=== PATIENT | female | born 1970 | race Caucasian/White ===

== ENCOUNTER 2020-01-26 15:42 | Outpatient (CLI) | payer OTHER, SELFPAY ==
--- NOTE | ~2020-01-26 | CT_ITS ---
EXAMINATION: CT chest abdomen pelvis w con DATE: 01/26/2020 16:23 CDT INDICATION: Pulmonary nodule. Abdomen pain. TECHNIQUE: Computed tomography (CT) of the chest, abdomen, and pelvis was performed with 100 cc Omnip aque 350 intravenous contrast. The dose-length product was 328.08 mGy-cm. Automated exposure control and iterative reconstruction technique were employed. COMPARISON: CT dated 03/10/2018 FINDINGS: CHEST CT: There is emphysema. No endobronchial lesions. No focal airspace consolidation. No pneumothorax. There is a 3 mm right lower lobe nodule, image 62 thyroid gland is unremarkable. No thoracic lymphadenopat hy. Heart size is normal. ABDOMEN/PELVIS CT: Fatty infiltration of the liver. Gallbladder is contracted. The spleen, pancreas, adrenal glands are unremarkable. There is bilateral renal cortical scarring. No hydronephrosis. No abnormally enhancing masses. Nonobstructive bowel gas pattern. Normal appendix. Uterus is surgically absent. No free air o r free fluid. No osteolytic or osteoblastic lesions. IMPRESSION: 1. No acute abnormality of the chest, abdomen or pelvis. 2: 3 mm right lower lobe nodule, likely benign. Follow-up low dose CT chest in 12 months recommended . 3: Emphysema. 4: Hepatic steatosis. Reviewed, dictated and finalized at location A. IMPRESSION: 1. No acute abnormality of the chest, abdomen or pelvis. 2: 3 mm right lower lobe nodule, likely benign. Follow-up low dose CT chest in 12 months recommended. 3: Emphysema. 4: Hepatic steatosis.
[2020-01-26 16:05] LABS: Estimated Glomerular Filt Rate > 60
== END 2020-01-26 15:43 | disposition home or self-care (01) ==
LOC: ANHIMG 15:43
PROVIDERS: PCP Family Medicine; Visit Provider Nurse Practitioner Family
DX: R91.1 Solitary pulmonary nodule (principal); R10.9 Unspecified abdominal pain; N20.0 Calculus of kidney; J43.9 Emphysema, unspecified; K76.0 Fatty (change of) liver, not elsewhere classified
CPT/HCPCS: 36415; 71260; 74177; Q9967

== ENCOUNTER 2020-02-10 10:10 | Outpatient (CLI) | payer OTHER, SELFPAY ==
--- NOTE | ~2020-02-10 | US_ITS ---
US abdomen complete DATE: 02/10/2020 10:56 INDICATION: Gallbladder obstruction TECHNIQUE: Real-time imaging of the abdomen, Doppler analysis COMPARISON: 01/26/2020 CT chest abdomen pelvis FINDINGS: No hepatic space-occupying mass lesion is detected. Hepatic steatosis. Normal hepatopedal p ortal venous flow direction. No gallstones or gallbladder wall thickening or abnormal pericholecystic fluid collection. Negative s onographic Tay's sign. The common bile duct measures 4 mm, normal. Right kidney measures approximately 11.1 cm length, left kidney 9.0 cm. Bilateral renal scarring. No hydronephrosis of either kidney. Small left renal calculus. Normal caliber of the abdominal aorta. The inferior vena cava is unremarkable. IMPRESSION: Hepatic steatosis Bilateral renal scarring Mild bilateral nephrolithiasis demonstrated to better advantage on 01/26/2020 [facility] Reviewed, dictated and finalized at Location [facility]. Reviewed, dictated and finalized at location A. IMPRESSION: Hepatic steatosis Bilateral renal scarring Mild bilateral nephrolithiasis demonstrated to better advantage on 01/26/2020 CT abdomen pelvis examination
== END 2020-02-10 10:11 | disposition home or self-care (01) ==
LOC: ANHIMG 10:11
PROVIDERS: PCP Family Medicine; Visit Provider Nurse Practitioner Family
DX: K82.0 Obstruction of gallbladder (principal); E55.9 Vitamin D deficiency, unspecified; K76.0 Fatty (change of) liver, not elsewhere classified; N20.0 Calculus of kidney
CPT/HCPCS: 76700

== ENCOUNTER 2021-03-11 08:49 | Emergency (ER) | payer BC, SELFPAY ==
[2021-03-11 08:57] VITALS: BP 143/95; PULSE 118; RESP 20; TEMP 36.4; O2SAT 100
[2021-03-11 09:35] LABS: Basophils Percent Auto 0.4 % (0.2-1.2); Eosinophils Percent Auto 0.1 % (0-4.4); Hematocrit 44.2 % (37.0-47.0); Hemoglobin 15.4 g/dL (12.0-15.0); Immature Granulocyte Absolute 0.06 K/mm3 (0.00-0.031); Immature Granulocyte Percent A 0.5 % (0-0.5); Lymphocytes Absolute Auto 1.28 K/mm3 (0.9-3.2); Lymphocytes Percent Auto 11.7 % (18.3-44.2); Mean Corpuscular HGB Conc 34.8 g/dl (32-36); Mean Corpuscular Hemoglobin 36.7 pg (26-34); Mean Corpuscular Volume 105.2 fl (80-100); Monocytes Absolute Auto 0.5 K/mm3 (0.1-0.6); Monocytes Percent Auto 4.7 % (2.6-8.5); Neutrophils Absolute Auto 9.1 K/mm3 (1.3-6.7); Neutrophils Percent Auto 82.6 % (45.5-73.1); Platelet Count Result 148 k/mm3 (150-375); Red Cell Distribution Width 11.9 % (11.5-14.5)
[2021-03-11 09:39] LABS: Add Urine Microscopic? YES; Appearance Urine Clear (Clear); Bilirubin Urine Negative (Negative); Blood Urine Negative (Negative); Color Urine Yellow (Yellow); Glucose Urine UA 3+ mg/dL (Negative); Ketones Urine Trace mg/dL (Negative); Leukocyte Esterase Ur Negative LEU/UL (Negative); Mucus Urine Rare /lpf; Nitrate Urine Negative (Negative); Protein Urine 2+ mg/dL (Negative); RBC Urine 0-2 /hpf (0-2); Squamous Epithelial Cell Urine Few /hpf (Few); WBC Urine 0-3 /hpf
[2021-03-11 09:45] LABS: Specific Grav Ur 1.031 (1.001-1.035)
[2021-03-11 09:47] LABS: Alanine Aminotransferase 31 U/L (4-35); Albumin Level 4.8 g/dL (3.5-5.1); Alkaline Phosphatase 175 U/L (38-126); Anion Gap 12 mmol/L (8-16); Aspartate Amino Transferase 52 U/L (14-36); Blood Urea Nitrogen 6 mg/dL (7-17); Calcium 9.9 mg/dL (8.4-10.2); Carbon Dioxide 31 mmol/L (22-30); Chloride 90 mmol/L (98-107); Estimated CRCL calculation 70 ml/min; Estimated Glomerular Filt Rate > 60; Glucose 413 mg/dL (65-110); Lipase 50 U/L (23-300); Potassium 4.4 mmol/L (3.4-5.0); Sodium 133 mmol/L (137-145)
[2021-03-11] MEDS: SODIUM CHLORIDE 0.9% IV 1,000 ML 999 ML IV CONT ×2 (10:39→11:11)
[2021-03-11] MEDS: ONDANSETRON INJ 4 MG/2 ML VIAL IV PUSH (10:39)
[2021-03-11] MEDS: INSULIN HUMAN REGULAR (*BKC) 100 UNITS/ML 10 UNITS IV PUSH (10:39)
[2021-03-11 10:46] LABS: Alveolar/Arterial O2 Gradient 13.6 mmHg; Base Excess ABG 5.3 mEq/l (+/-2.0); Fractional Inspired Oxygen 21 %; HCO3 ABG 26.7 mEq/l (22.0-26.0); Oxygen Content ABG 20.9 %vol (16.0-22.0); Oxygen Saturation ABG 98.3 % (95.0-100.0); Oxyhemoglobin 96.1 % THb (90.0-100.0); PCO2 ABG 30.3 mmHg (35.0-45.0); PO2 ABG 99.8 mmHg (80.0-100.0); PO2 FiO2 Ratio Arterial Blood 4.75 %; Total Hemoglobin 15.4 g/dL (12.0-18.0)
[2021-03-11 10:47] LABS: Device ROOM AIR; Modified Allen's Test Pass; Site Drawn LEFT RADIAL; pH ABG 7.563 (7.350-7.450)
--- NOTE | 2021-03-11 12:01 | ED.GENADULT ---
HPI - General Adult General Chief complaint: Nausea/Vomiting/Diarrhea Stated complaint: N/V Time Seen by Provider: 03/11/21 10:15 Source: patient Mode of arrival: ambulatory Limitations: no limitations History of Present Illness HPI narrative: Patient with history of diabetes mellitus and gastritis presents with chief complaint of multiple episodes of nausea vomiting and generalized abdominal pain over the past 2 to 3 days. Patient states she gets gastritis and is out of her Zofran. Patient states that she has not been taking her insulin over the past 3 months as she has had a job and insurance change. Patient reports that her abdominal pain is all over and not localized only area. Patient denies issues with urination or stools. Patient denies fever or chills. Patient states that she has been feeling weak and dizzy today. Related Data Allergies Allergy/AdvReac Type Severity Reaction Status Date / Time No Known Allergies Allergy Unknown Verified 03/11/21 09:12 Review of Systems Review of Systems: CONSTITUTIONAL: Reports fatigue denies fever, chills, or sweats. EYES: Denies visual changes, redness, or discharge. ENT: Denies rhinorrhea, congestion, sore throat, or otalgia. CARDIOVASCULAR: Denies chest pain, palpitations, or edema. RESPIRATORY: Denies cough or dyspnea. GASTROINTESTINAL: Reports abdominal pain, nausea, vomiting denies diarrhea. GENITOURINARY: Denies dysuria or hematuria. SKIN: Denies rash or itching. MUSCULOSKELETAL: Denies back pain, joint pain, or myalgia. NEUROLOGIC: Denies headache, numbness, or neurologic deficit PSYCHIATRIC: Denies anxiety or depression. [facility] Past Medical History Medical History (Updated 03/11/21 @ 13:58 by Cesar Bean PA-C) Alcohol abuse Anxiety disorder, unspecified Back pain BMI 23.0-23.9, adult BMI 25.0-25.9,adult Depression Diabetes Emphysema lung Fatigue Fatty liver GERD (gastroesophageal reflux disease) Hyperlipidemia Irritable bowel syndrome with constipation Liver disease Neuropathy Tachycardia Tobacco abuse Uncontrolled diabetes mellitus Vitamin D deficiency Surgical History Surgical History H/O: hysterectomy Previous section Family History Family History (Updated 09/13/20 @ 09:09 by Mariam Menard) Father Hypertension Family history of throat cancer Family history of heart disease in male family member before age 55 Mother Cerebrovascular accident Grandparent Carcinoma of colon Other ADD (attention deficit disorder) Alcoholism Asthma COPD (chronic obstructive pulmonary disease) Cancer Glaucoma Heart disease Lung disease Osteoporosis Social History Social History (Updated 09/12/20 @ 13:52 by Maru Carnes) Smoking status: Current every day smoker Second hand tobacco smoke exposure: No Alcohol intake: current Alcohol use details: 3 drinks of vodka a day after work. Substance use: never Additional living arrangements comments: -[place] Additional occupation/education comments: [employer] Gender identity (if verbalized by the patient): Female Sexual Orientation (if Verbalized by the Patient): Straight or Heterosexual Spiritual care concerns: No Exam Narrative: GENERAL: Well-appearing, well-nourished, and in no acute distress. HEAD: Normocephalic, atraumatic. EYES: PERRLA and EOMI. ENT: Nares clear, no rhinorrhea or epistaxis. Mucous membranes mildly dry. Oropharynx without tonsillar hypertrophy exudate or other lesions. Bilateral TMs pearly fan nonbulging NECK: Supple. No adenopathy or masses. CHEST: Clear to auscultation. No respiratory distress. No wheezes rales or rhonchi HEART: Tachycardic rate and regular rhythm. No murmur heard. Normal peripheral pulses. ABDOMEN: Soft, mildly tender diffusely, nondistended, normal active bowel sounds. EXTREMITIES: Normal range of motion. No edema. SKIN: Warm, dry, no ra
[2021-03-11] MEDS: BELLADONNA ALK/PHENOB ELIX 10 ML, MAG HYDROX/ALUMINUM HYD/SIMETH 30 ML, LIDOCAINE HCL 2... PO (12:09)
[2021-03-11 13:06] LABS: Glucose Point of Care 171 mg/dl (65-105)
[2021-03-11 14:15] VITALS: BP 116/77; PULSE 87; RESP 16; O2SAT 99
== END 2021-03-11 14:15 | disposition home or self-care (01) ==
PROVIDERS: Physician Assistant; Emergency Provider Emergency Medicine; PCP Family Medicine
DX: E11.65 Type 2 diabetes mellitus with hyperglycemia (principal); E11.40 Type 2 diabetes mellitus with diabetic neuropathy, unspecified; F41.9 Anxiety disorder, unspecified; F32.9 Major depressive disorder, single episode, unspecified; E78.5 Hyperlipidemia, unspecified; F17.210 Nicotine dependence, cigarettes, uncomplicated; Z87.19 Personal history of other diseases of the digestive system; Z90.710 Acquired absence of both cervix and uterus
CPT/HCPCS: 36415; 36600; 80053; 81001; 82805; 82948; 83690; 85025; 96361; 96374; 96375; 99284; A9270; J1815; J2405; J7030

== ENCOUNTER 2021-07-11 09:42 | Emergency (ER) | payer BC, SELFPAY ==
--- NOTE | ~2021-07-11 | XR_ITS ---
EXAMINATION: XR chest 1V portable EXAM DATE: 07/11/2021 10:14 INDICATION: COVID positive, chest pain, cough. TECHNIQUE: Portable AP frontal chest x-ray was obtained. Comparison is made to prior examination from 06/24/2017. FINDINGS: The lungs are clear. There are no pleural effusions. The cardiomediastinal silhouette is within normal limits. There is no pneumothorax suspected. The bones and soft tissues are unremarkab le. IMPRESSION: No acute cardiopulmonary findings. Reviewed, dictated and finalized at location A. UET HOUSEPERSON
--- NOTE | 2021-07-11 09:49 | ECG_ITS ---
Measurements Intervals [place] Rate: 117 P: 44 OR: 112 QRS: 16 QRSD: 81 T: 30 QT: 302 QTc: 422 Interpretive Statements SINUS TACHYCARDIA WITH SHORT OR INTERVAL BASELINE ARTIFACT- I, II, III, AVR, AVL, AVF ABNORMAL ECG Electronically Signed On 07-11-2021 9:57:09 JOURNAL ENTRY AUDIT CLERK by Enrique De La Torre D.O.
[2021-07-11 09:50] VITALS: BP 180/106; PULSE 115; RESP 27; TEMP 37.1; O2SAT 97
--- NOTE | 2021-07-11 10:04 | ED.CHESTPAIN ---
HPI - Chest Pain General Chief Complaint: Chest Pain Stated Complaint: tested positive for covid Time Seen by Provider: 07/11/21 09:55 Source: patient Mode of arrival: ambulatory Limitations: no limitations History of Present Illness HPI narrative: Patient is a 50-year-old female complaining of chest pain, left chest wall, left lateral ribs, 9 out of 10, sharp, worse with deep inspiration and movement accompanied by cough, productive, and shortness of breath started 3 to 4 days ago. Patient states that she fell this past Friday and she hit her left side where the pain is. Patient also complaining of cough, shortness of breath, fever, chills and body aches since Friday, took a COVID test yesterday and tested positive. Related Data Allergies Allergy/AdvReac Type Severity Reaction Status Date / Time No Known Allergies Allergy Unknown Verified 07/11/21 10:57 Review of Systems Review of Systems: All systems reviewed & are unremarkable except as noted in HPI and below Constitutional: Constitutional: Denies body ache(s), Denies chills, Denies excessive sweating, Denies fatigue, Denies fever(s), Denies headache(s), Denies lethargy, Denies malaise, Denies weakness and Denies weight loss Eyes: Eyes: Denies blurry vision, Denies change in vision and Denies loss of vision ENT: Denies dizziness, Denies ear discharge, Denies headache(s), Denies lip swelling, Denies epistaxis, Denies nasal congestion, Denies neck pain, Denies throat swelling and Denies tongue swelling Cardiovascular: Cardiovascular: Reports chest pain, Denies diaphoresis, Denies edema, Denies irregular heart rhythm, Denies lightheadedness, Denies palpitations, Denies dyspnea and Denies dyspnea on exertion Respiratory: Respiratory: Reports chest congestion, Reports cough, Denies hemoptysis, Reports dyspnea and Denies dyspnea on exertion Gastrointestinal: Gastrointestinal: Denies abdominal pain, Denies melena, Denies hematochezia, Denies diarrhea, Denies nausea, Denies vomiting and Denies hematemesis Musculoskeletal: Musculoskeletal: Denies abnormal gait, Denies deformity, Denies joint swelling, Denies limited range of motion, Denies neck pain and Denies numbness Neurologic: Denies Abnormal speech present, Denies abnormal gait, Denies confusion, Denies dizziness, Denies headache(s), Denies focal weakness, Denies loss of vision, Denies numbness, Denies Other visual disturbances, Denies Sensory deficit (Neuro) and Denies weakness Psychiatric: Psychiatric: Denies confusion, Denies depression, Denies auditory hallucinations, Denies homicidal ideation and Denies suicidal ideation Endocrine: Endocrine: Denies cold intolerance, Denies excessive sweating, Denies fatigue, Denies heat intolerance and Denies palpitations Hematologic/Lymphatic: Hematologic/Lymphatic: Denies easy bleeding and Denies easy bruising Allergic/Immunologic: Allergic/Immunologic: Denies lip swelling, Denies throat swelling and Denies tongue swelling PMFSH Past Medical History Medical History Alcohol abuse Anxiety disorder, unspecified Back pain BMI 23.0-23.9, adult BMI 25.0-25.9,adult Depression Diabetes Emphysema lung Fatigue Fatty liver GERD (gastroesophageal reflux disease) Hyperlipidemia Irritable bowel syndrome with constipation Liver disease Neuropathy Tachycardia Tobacco abuse Uncontrolled diabetes mellitus Vitamin D deficiency Surgical History Surgical History H/O: hysterectomy Previous section Family History Family History Father Hypertension Family history of throat cancer Family history of heart disease in male family member before age 55 Mother Cerebrovascular accident Grandparent Carcinoma of colon Other ADD (attention deficit disorder) Alcoholism Asthma COPD (chronic obstructive pulmonary disease) Ca
[2021-07-11] MEDS: ASPIRIN 81 MG CHEWABLE TABLET 324 MG PO (10:12)
[2021-07-11 10:15] LABS: Basophils Percent Auto 0.5 % (0.2-1.2); Eosinophils Percent Auto 0.4 % (0-4.4); Hematocrit 42.5 % (37.0-47.0); Hemoglobin 14.6 g/dL (12.0-15.0); Immature Granulocyte Absolute 0.04 K/mm3 (0.00-0.031); Immature Granulocyte Percent A 0.5 % (0-0.5); Immature Platelet Fraction Pct 9.4 % (0.9-11.2); Lymphocytes Absolute Auto 1.69 K/mm3 (0.9-3.2); Lymphocytes Percent Auto 20.8 % (18.3-44.2); Mean Corpuscular HGB Conc 34.4 g/dl (32-36); Mean Corpuscular Hemoglobin 35.5 pg (26-34); Mean Corpuscular Volume 103.4 fl (80-100); Mean Platelet Volume 11.1 fl (7.4-10.4); Monocytes Absolute Auto 0.6 K/mm3 (0.1-0.6); Monocytes Percent Auto 7.3 % (2.6-8.5); Neutrophils Absolute Auto 5.7 K/mm3 (1.3-6.7); Neutrophils Percent Auto 70.5 % (45.5-73.1); Platelet Count Result 101 k/mm3 (150-375); Red Blood Count 4.11 M/mm3 (4.2-5.4); Red Cell Distribution Width 11.5 % (11.5-14.5); White Blood Count 8.1 K/mm3 (4.5-10.0)
[2021-07-11 10:22] LABS: Prothrombin Time 13.4 Seconds (11.1-14.7)
[2021-07-11 10:23] LABS: Partial Thromboplastin Time 27.5 SECONDS (22.3-36.8)
[2021-07-11 10:25] LABS: D Dimer 0.34 ug/mL (<0.48)
[2021-07-11 10:26] LABS: Alanine Aminotransferase 86 U/L (4-35); Albumin Level 4.3 g/dL (3.5-5.1); Alkaline Phosphatase 170 U/L (38-126); Anion Gap 11 mmol/L (8-16); Aspartate Amino Transferase 150 U/L (14-36); Bilirubin,Total 2.3 mg/dL (0.2-1.3); Blood Urea Nitrogen 7 mg/dL (7-17); Calcium 9.1 mg/dL (8.4-10.2); Carbon Dioxide 31 mmol/L (22-30); Chloride 86 mmol/L (98-107); Estimated CRCL calculation 69 ml/min; Estimated Glomerular Filt Rate > 60; Glucose 326 mg/dL (65-110); Lipase 51 U/L (23-300); Potassium 4.4 mmol/L (3.4-5.0); Sodium 128 mmol/L (137-145)
[2021-07-11 10:36] LABS: Troponin I 0.013 ng/mL (0.000-0.034)
[2021-07-11] MEDS: HYDROcodone/acetaminophen (*CRX) 5-325 MG TABLET 1 TAB PO (10:54)
[2021-07-11 10:56] VITALS: BP 139/91; PULSE 111; RESP 12; O2SAT 96
[2021-07-11 11:25] VITALS: BP 137/91; PULSE 109; RESP 18; O2SAT 98
[2021-07-11 12:25] VITALS: BP 128/90; PULSE 100; RESP 16; O2SAT 95
[2021-07-11] MEDS: LACTATED RINGERS 1,000 ML 999 ML IV CONT (13:00)
[2021-07-11 13:20] VITALS: BP 156/88; PULSE 94; RESP 18; O2SAT 97
[2021-07-11 13:22] LABS: Troponin I < 0.012 ng/mL (0.000-0.034)
[2021-07-11 14:19] VITALS: BP 110/97; PULSE 98; RESP 18; TEMP 36.8; O2SAT 98
== END 2021-07-11 14:20 | disposition home or self-care (01) ==
PROVIDERS: Emergency Provider Emergency Medicine; PCP Family Medicine
DX: R07.89 Other chest pain (principal); R00.0 Tachycardia, unspecified; F41.9 Anxiety disorder, unspecified; F32.9 Major depressive disorder, single episode, unspecified; E11.9 Type 2 diabetes mellitus without complications; K21.9 Gastro-esophageal reflux disease without esophagitis; E78.5 Hyperlipidemia, unspecified
CPT/HCPCS: 36415; 71045; 80053; 83690; 84484; 85025; 85055; 85380; 85610; 85730; 93005; 96361; 96374; 99284; A9270; J1100; J7120

== ENCOUNTER 2021-09-25 14:38 | Outpatient (CLI) | payer BC, SELFPAY ==
--- NOTE | ~2021-09-25 | US_ITS ---
EXAMINATION: US venous doppler LE RT DATE: 09/25/2021 15:01 INDICATION: Right lower limb pain and swelling. Other specified soft tissue disorders. TECHNIQUE: Grayscale ultrasound images without and with compression and Doppler ultrasound images of the right lower extremity veins were obtained. COMPARISON: None. FINDINGS: The visualized portions of right common femoral vein, profunda (deep) femoral vein, femoral vein, pop liteal vein, peroneal veins, posterior tibial veins, and greater saphenous vein outflow are patent. IMPRESSION: 1. No deep venous thrombosis. Reviewed, dictated and finalized at location A.
== END 2021-09-25 14:39 | disposition home or self-care (01) ==
LOC: ANHIMG 14:39
PROVIDERS: PCP Family Medicine; Visit Provider Family Medicine
DX: M79.89 Other specified soft tissue disorders (principal)
CPT/HCPCS: 93971

== ENCOUNTER 2022-05-05 07:12 | Observation (INO) | payer BC, SELFPAY ==
[2022-05-05] VITALS (11 sets, daily range): BP systolic 103–124; BP diastolic 68–86; PULSE 90–140; RESP 18–20; TEMP 36.3–36.8; O2SAT 96–100
--- NOTE | ~2022-05-05 | CT_ITS ---
EXAMINATION: CT abdomen pelvis w con DATE: 05/05/2022 10:20 INDICATION: Epigastric abdominal pain, vomiting TECHNIQUE: Computed tomography (CT) of the abdomen and pelvis was performed with 100 CC Omnipaque 350 intravenous contrast. Automated exposure control and iterative reconstruction technique were employe d. Exam dose: 191.15 mGy-cm total exam DLP. COMPARISON: 02/10/2020 complete abdominal ultrasound examination 01/26/2020 CT chest abdomen pelvis FINDINGS: The lung bases are clear. Normal heart size. No pericardial or pleural effusion. Hepatic steatosis. No hepatic space-occupying mass lesion. The gallbladder is unremarkable. No perich olecystic fluid or fat stranding or gallbladder wall thickening. No bile duct or pancreatic duct dila tation. No pancreatic mass lesion or calcification. Spleen measures vertical dimension of 4.2 cm, wit hin upper normal range. Normal morphology of the adrenal glands. Bilateral renal scarring consistent with chronic pyelonephri tis. There are a couple of nonobstructing right renal calculi measuring up to approximately 3 mm and an approximately 3 x 5 mm nonobstructing left renal calculus. No ureteral calculus or hydroureteronep hrosis. There is moderate diffuse thickening of the urinary bladder wall. Status post hysterectomy. There is abdominal aortic and iliac arterial calcification but no aneurysm. There are shotty nonenlar ged periaortic and aortocaval lymph nodes. No intraperitoneal or retroperitoneal or pelvic mass lesio n or adenopathy or ascites. Normal appendix. No bowel obstruction, bowel wall thickening, pneumatosis or intraperitoneal free air . Prominent degenerative spurring at the lower thoracic spine. No suspicious osteolytic or osteoblastic lesions. IMPRESSION: Bilateral chronic pyelonephritis Bilateral nonobstructive nephrolithiasis Hepatic steatosis Status post hysterectomy Reviewed, dictated and finalized at Location [facility]. Reviewed, dictated and finalized at location A. ITIES AND MAINTENANCE SUPERVISOR
--- NOTE | ~2022-05-05 | XR_ITS ---
EXAMINATION: XR chest 1V portable DATE: 05/05/2022 07:54 INDICATION: Cough and shortness of breath. TECHNIQUE: A single frontal view of the chest was obtained. COMPARISON: Chest single view 07/11/2021, CT abdomen and pelvis 05/05/2022 FINDINGS: The chest demonstrates clear lungs without pneumonia, pleural effusion, or pneumothorax. Th e heart size is normal. IMPRESSION: 1. No acute cardiopulmonary disease. Reviewed, dictated and finalized at location A. ENDOCRINOLOGY
--- NOTE | 2022-05-05 07:36 | ECG_ITS ---
Measurements Intervals [place] Rate: 105 P: -11 [place]: 91 QRS: 23 QRSD: 82 T: 192 QT: 405 QTc: 537 Interpretive Statements SINUS TACHYCARDIA WITH SHORT AR INTERVAL BORDERLINE R WAVE PROGRESSION, ANTERIOR LEADS ST-T WAVE ABNORMALITY IN DIFFUSE LEADS- CONSIDER ISCHEMIA BASELINE ARTIFACT- I, II, III, AVR, AVL, AVF ABNORMAL ECG COMPARED TO ECG 07/11/2021 09:52:22 HEART RATE HAS INCREASED ST-T WAVE ABNORMALITY IN DIFFUSE LEADS- CONSIDER ISCHEMIA NOW PRESENT Electronically Signed On 05-05-2022 9:53:27 COMMUNITY SERVICE PATROL OFFICER by Enrique De La Torre D.O.
[2022-05-05 07:43] LABS: Glucose Point of Care 287 mg/dl (65-105)
[2022-05-05 07:46] LABS: Basophils Percent Auto 0.2 % (0.2-1.2); Hematocrit 48.4 % (37.0-47.0); Hemoglobin 16.6 g/dL (12.0-15.0); Immature Granulocyte Absolute 0.09 K/mm3 (0.00-0.031); Immature Granulocyte Percent A 0.5 % (0-0.5); Lymphocytes Absolute Auto 1.79 K/mm3 (0.9-3.2); Lymphocytes Percent Auto 9.2 % (18.3-44.2); Mean Corpuscular HGB Conc 34.3 g/dl (32-36); Mean Corpuscular Hemoglobin 36.6 pg (26-34); Mean Corpuscular Volume 106.6 fl (80-100); Mean Platelet Volume 11.6 fl (7.4-10.4); Monocytes Absolute Auto 0.8 K/mm3 (0.1-0.6); Monocytes Percent Auto 4.3 % (2.6-8.5); Neutrophils Absolute Auto 16.7 K/mm3 (1.3-6.7); Neutrophils Percent Auto 85.8 % (45.5-73.1); Platelet Count Result 145 k/mm3 (150-375); Red Blood Count 4.54 M/mm3 (4.2-5.4); Red Cell Distribution Width 12.4 % (11.5-14.5); White Blood Count 19.4 K/mm3 (4.5-10.0)
[2022-05-05] MEDS: SODIUM CHLORIDE 0.9% IV 2,000 ML 999 ML IV CONT (07:48)
[2022-05-05 08:08] LABS: Albumin Level 4.2 g/dL (3.5-5.1); Alkaline Phosphatase 157 U/L (38-126); Anion Gap 19 mmol/L (8-16); Aspartate Amino Transferase 55 U/L (14-36); Bilirubin,Total 3.6 mg/dL (0.2-1.3); Blood Urea Nitrogen 9 mg/dL (7-17); Calcium 8.5 mg/dL (8.4-10.2); Carbon Dioxide 39 mmol/L (22-30); Chloride 81 mmol/L (98-107); Estimated CRCL calculation 53 ml/min; Estimated Glomerular Filt Rate > 60; Glucose 272 mg/dL (65-110); Lipase 47 U/L (23-300); Potassium 3.2 mmol/L (3.4-5.0); Sodium 139 mmol/L (137-145)
[2022-05-05 08:12] LABS: Platelet Estimate Adequate (Adequate); Stomatocytes 1+ (NORMAL)
[2022-05-05 08:13] LABS: Alanine Aminotransferase 46 U/L (6-35); Macrocytosis 1+ (NORMAL); Schistocytes None Seen (NORMAL)
--- NOTE | 2022-05-05 08:20 | ED.NAVMDI ---
HPI - Nausea/Vomiting/Diarrhea General Chief complaint: Nausea/Vomiting/Diarrhea Stated complaint: vomiting Time Seen by Provider: 05/05/22 08:20 Source: patient Mode of arrival: ambulatory Limitations: no limitations History of Present Illness HPI Narrative: Patient presents with nausea and vomiting at least once every hour over the last 48 hours. Unable to keep anything down. Epigastric pain. Slight nasal congestion and the cough. She denies any fever, chills, diarrhea. Related Data Allergies Allergy/AdvReac Type Severity Reaction Status Date / Time No Known Allergies Allergy Unknown Verified 05/05/22 07:38 Review of Systems Review of Systems: All systems reviewed & are unremarkable except as noted in HPI and below PMFSH Past Medical History Medical History Abnormal CBC Abnormal mammogram Abscess Alcohol abuse Alcoholic hepatitis without ascites Anxiety Anxiety disorder, unspecified Back pain Bloating BMI 20.0-20.9, adult BMI 23.0-23.9, adult BMI 25.0-25.9,adult Body mass index [BMI] 25.0-25.9, adult (07/03/17) Chronic abdominal pain Current mild episode of major depressive disorder without prior episode Depression Diabetes Diabetes mellitus type 2 in nonobese Dietary counseling and surveillance (04/01/17) Elevated liver enzymes Emphysema lung Essential hypertension Fatigue Fatty liver GERD (gastroesophageal reflux disease) History of Helicobacter pylori infection Hyperlipidemia Injury of other nerves at shoulder and upper arm level, right arm, initial encounter Irritable bowel syndrome with constipation Liver disease Lung nodules Nausea Neuropathy Other chronic pain Other hyperlipidemia Routine physical examination Screening for lipid disorders Screening for thyroid disorder Screening mammogram, encounter for Swelling of thigh Tachycardia Tobacco abuse Type 2 diabetes mellitus with hyperglycemia Uncontrolled diabetes mellitus Vitamin D deficiency Yeast infection involving the vagina and surrounding area Surgical History Surgical History H/O: hysterectomy Previous section Family History Family History Father Hypertension Family history of throat cancer Family history of heart disease in male family member before age 55 Mother Cerebrovascular accident Grandparent Carcinoma of colon Sibling No problems noted. Other ADD (attention deficit disorder) Alcoholism Asthma COPD (chronic obstructive pulmonary disease) Cancer Glaucoma Heart disease Lung disease Osteoporosis Social History Social History Years smoked: 8 Smoking status: Former smoker Tobacco type: e-cigarettes/vaping Second hand tobacco smoke exposure: No Alcohol intake: current Drinks per week: 6 Alcohol use details: 3 drinks of vodka a day after work. Substance use: never Substance use type: does not use Additional living arrangements comments: -[place] Additional occupation/education comments: [employer] Gender identity (if verbalized by the patient): Female Sexual Orientation (if Verbalized by the Patient): Straight or Heterosexual Spiritual care concerns: No Exam Narrative: General appearance: Well-developed, well-nourished Skin: Normal color Head: Normocephalic, nontraumatic Eyes: Clear conjunctiva ENT: Oropharynx normal, ears normal, nose normal Neck: Supple, nontender Chest and respiratory: Airway patent, no respiratory distress, no accessory muscle use Heart: Regular rate/rhythm Abdomen: Soft, epigastric tenderness, no organomegaly, quiet bowel sounds Vascular: Normal peripheral pulses, normal capillary refill. Musculoskeletal: Normal range of motion, nontender back Neurologic: Alert and oriented ?3, FORGE HEATER is normal as tested, no gross m
[2022-05-05 08:33] LABS: Influenza A QL RT-PCR Negative (Negative); Influenza B QL RT-PCR Negative (Negative); SARS-CoV-2 RNA PCR Negative
[2022-05-05] MEDS: diphenhydrAMINE HCl INJ 50 MG/ML VIAL IV PUSH (08:33)
[2022-05-05] MEDS: METOCLOPRAMIDE HCL INJ 10 MG/2 ML VIAL IV PUSH (08:33)
[2022-05-05 08:52] LABS: Appearance Urine Clear (Clear); Bilirubin Urine 3+ (Negative); Blood Urine Trace-intact (Negative); Color Urine Amber (Yellow); Glucose Urine UA Trace mg/dL (Negative); Ketones Urine 2+ mg/dL (Negative); Leukocyte Esterase Ur Negative LEU/UL (Negative); Nitrate Urine Positive (Negative); Protein Urine 3+ mg/dL (Negative); Specific Grav Ur 1.015 (1.001-1.035); pH Urine 8.5 (5.0-9.0)
[2022-05-05 08:58] LABS: Hyaline Casts Urine 20-29 /lpf; Mucus Urine Few /lpf; Squamous Epithelial Cell Urine Many /hpf (Few)
[2022-05-05 09:12] LABS: Add Urine Microscopic? YES
[2022-05-05] MEDS: SODIUM CHLORIDE 0.9% IV 1,000 ML 999 ML IV CONT (09:43)
--- NOTE | 2022-05-05 11:09 | PC.NURSE ---
1100 Assumed pt care from DEYA Garcia
--- NOTE | 2022-05-05 13:45 | PM.IMHP ---
H&P: HPI History of Present Illness Date/Time: 05/05/22 13:45 Chief Complaint: Nausea and vomiting. Narrative: This is a 51-year-old female with history of diabetes, fatty liver disease, GERD, H pylori infection, and emphysema who presented to the emergency department from for evaluation of nausea and vomiting. She has not felt well for 2 and half days with multiple symptoms including chills, low back ache, severe heartburn, nausea, and vomiting nearly every hour. She has also had mild sinus congestion and cough. Her family members encouraged her to come in today as she has gotten so weak due to poor oral intake and ongoing vomiting. 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 She denies fever, headache, sore throat, productive cough, chest pain, pleuritic pain, palpitations, hematemesis, melena, hematochezia, diarrhea, and dysuria. Workup in the emergency department was significant for leukocytosis and white blood cell count of 19.4, potassium of 3.2, glucose 272, and gap 19, total bilirubin 3.6, and mild elevation of AST, ALT, and alkaline phosphatase. Urine showed 3+ protein, trace glucose, 2+ ketones, positive nitrates, 3+ bilirubin, 79 WBCs, many squamous cells, and [address] of the abdomen and pelvis showed findings of bilateral chronic pyelonephritis, bilateral nonobstructive nephrolithiasis, and hepatic steatosis. She is being admitted in this setting for aggressive IV fluid rehydration and close monitoring of her glucose. At the time my evaluation she is feeling a bit better after receiving antiemetics and IV fluids. Review of Systems Review of Systems: Twelve systems were reviewed and are negative except for as per HPI. [facility] Past Medical History Medical History (Updated 05/05/22 @ 20:38 by Luz Elena Samaniego PA-C) Alcohol abuse Alcoholic hepatitis without ascites Anxiety Depression Diabetes mellitus type 2 in nonobese Emphysema lung Essential hypertension Fatty liver GERD (gastroesophageal reflux disease) History of Helicobacter pylori infection Hyperlipidemia Irritable bowel syndrome with constipation Lung nodules Neuropathy Other chronic pain Other hyperlipidemia Tachycardia Tobacco abuse Vitamin D deficiency Surgical History Surgical History H/O: hysterectomy Previous section Family History Family History Father Hypertension Family history of throat cancer Family history of heart disease in male family member before age 55 Mother Cerebrovascular accident Grandparent Carcinoma of colon Sibling No problems noted. Other ADD (attention deficit disorder) Alcoholism Asthma COPD (chronic obstructive pulmonary disease) Cancer Glaucoma Heart disease Lung disease Osteoporosis Social History Social History (Updated 05/05/22 @ 20:36 by Luz Elena Samaniego PA-C) Social History: Surrogate medical decision maker: [place] Valenzuela, spouse. Code status: Full code. Smoking packs per day: 1 Smoking cigarettes per day: 20.0 Years smoked: 8 Smoking pack-years: 8.00 Smoking status: Former smoker Tobacco type: cigarettes Second hand tobacco smoke exposure: No Alcohol intake: current Drinks per week: 3 Alcohol use details: 3 ounces of vodka several days a week after work. Drank heavier in the past. Substance use: never Substance use type: does not use Has the Lack of Transportation Kept You From Medical Appointments or From Getting Medications?: Yes Within the Past 12 Months, Were You Worried Whether Your Food Would Run Out Before You Got Money to Buy More?: Never True What is Your Housing Situation Today?: I Have Housing Are You Worried That in the Next 2 Months, You May Not Have Your Own Housing to Live In?: No Do You Have
[2022-05-05] MEDS: SODIUM CHLORIDE 0.9% IV 1,000 ML 150 ML IV CONT (16:42)
[2022-05-05 19:15] LABS: INR 1.5; Prothrombin Time 17.5 Seconds (11.1-14.7)
[2022-05-05 19:16] LABS: Partial Thromboplastin Time 28.4 SECONDS (22.3-36.8)
[2022-05-05 19:25] LABS: Alanine Aminotransferase 28 U/L (6-35); Albumin Level 3.2 g/dL (3.5-5.1); Alkaline Phosphatase 98 U/L (38-126); Anion Gap 11 mmol/L (8-16); Aspartate Amino Transferase 57 U/L (14-36); Bilirubin,Total 1.8 mg/dL (0.2-1.3); Blood Urea Nitrogen 7 mg/dL (7-17); Calcium 6.7 mg/dL (8.4-10.2); Carbon Dioxide 32 mmol/L (22-30); Chloride 95 mmol/L (98-107); Creatine Kinase 50 U/L (30-135); Estimated CRCL calculation 69 ml/min; Estimated Glomerular Filt Rate > 60; Glucose 159 mg/dL (65-110); Magnesium 1.3 mg/dL (1.6-2.3); Potassium 2.9 mmol/L (3.4-5.0); Sodium 138 mmol/L (137-145)
[2022-05-05 19:56] LABS: Hepatitis B Surface Antigen Negative (Negative)
[2022-05-05 20:01] LABS: HAV RESULT Negative (Negative); Hepatitis B Core IgM Result Negative (Negative)
[2022-05-05 20:13] LABS: Hepatitis C Virus Antibody Negative (Negative)
[2022-05-05] MEDS: MAGNESIUM SULFATE 3GM/D5W100ML 3 GM/100 ML BAG IVPB (20:59)
[2022-05-05] MEDS: POTASSIUM CHLORIDE INJ 40 MEQ in SODIUM CHLORIDE 0.9% IV 500 ML 130 MEQ IVPB (21:00)
[2022-05-05 22:11] LABS: Glucose Point of Care 144 mg/dl (65-105)
[2022-05-05] MEDS: POTASSIUM CHLORIDE 20 MEQ TABLET 40 MEQ PO (22:45)
[2022-05-05] MEDS: PANTOPRAZOLE SODIUM IV 40 MG VIAL IV PUSH (22:45)
[2022-05-05] MEDS: GABAPENTIN 300 MG CAPSULE 900 MG BY MOUTH (22:46)
[2022-05-06] VITALS: BP 127/89
[2022-05-06] MEDS: SODIUM CHLORIDE 0.9% IV 1,000 ML 150 ML IV CONT (01:49)
[2022-05-06 04:00] VITALS: BP 130/86
[2022-05-06] MEDS: GABAPENTIN 300 MG CAPSULE 900 MG BY MOUTH ×2 (05:51→14:37)
[2022-05-06 06:00] VITALS: BP 116/54; PULSE 67; RESP 18; TEMP 36.3; O2SAT 100
[2022-05-06 06:39] LABS: Basophils Percent Auto 0.3 % (0.2-1.2); Eosinophils Percent Auto 0.5 % (0-4.4); Hematocrit 34.8 % (37.0-47.0); Hemoglobin 11.5 g/dL (12.0-15.0); Immature Granulocyte Absolute 0.02 K/mm3 (0.00-0.031); Immature Granulocyte Percent A 0.3 % (0-0.5); Immature Platelet Fraction Pct 8.4 % (0.9-11.2); Lymphocytes Absolute Auto 1.61 K/mm3 (0.9-3.2); Lymphocytes Percent Auto 25.2 % (18.3-44.2); Mean Corpuscular Volume 111.9 fl (80-100); Monocytes Absolute Auto 0.4 K/mm3 (0.1-0.6); Monocytes Percent Auto 6.9 % (2.6-8.5); Neutrophils Absolute Auto 4.3 K/mm3 (1.3-6.7); Neutrophils Percent Auto 66.8 % (45.5-73.1); Platelet Count Result 64 k/mm3 (150-375); Red Blood Count 3.11 M/mm3 (4.2-5.4); Red Cell Distribution Width 12.5 % (11.5-14.5); White Blood Count 6.4 K/mm3 (4.5-10.0)
[2022-05-06 06:46] LABS: Alanine Aminotransferase 34 U/L (6-35); Albumin Level 2.9 g/dL (3.5-5.1); Alkaline Phosphatase 111 U/L (38-126); Anion Gap 7 mmol/L (8-16); Aspartate Amino Transferase 87 U/L (14-36); Blood Urea Nitrogen 5 mg/dL (7-17); Calcium 6.4 mg/dL (8.4-10.2); Carbon Dioxide 29 mmol/L (22-30); Chloride 103 mmol/L (98-107); Estimated CRCL calculation 69 ml/min; Estimated Glomerular Filt Rate > 60; Glucose 111 mg/dL (65-110); Magnesium 2.5 mg/dL (1.6-2.3); Potassium 3.8 mmol/L (3.4-5.0); Sodium 139 mmol/L (137-145)
[2022-05-06] MEDS: SODIUM CHLORIDE 0.9% IV 1,000 ML 75 ML IV CONT (08:33)
[2022-05-06] MEDS: THERAPEUTIC MULTIVITAMINS/MINERALS TAB (*BKC) 1 TABLET PO (08:34)
[2022-05-06] MEDS: THIAMINE HCL 100 MG TABLET PO (08:34)
[2022-05-06] MEDS: FOLIC ACID 1 MG TABLET PO (08:34)
[2022-05-06] MEDS: PANTOPRAZOLE SODIUM IV 40 MG VIAL IV PUSH (08:34)
[2022-05-06 08:35] LABS: Glucose Point of Care 107 mg/dl (65-105)
[2022-05-06 10:27] LABS: Parathyroid Intact 173.8 pg/mL (7.5-53.5)
[2022-05-06 10:37] LABS: Vitamin D 25 Hydroxy 65.7 ng/mL
[2022-05-06] MEDS: INSULIN ASPART (*BKC) 100 UNITS/ML SUB-Q (12:25)
[2022-05-06 12:31] LABS: Glucose Point of Care 203 mg/dl (65-105)
[2022-05-06] MEDS: CALCIUM GLUC 2,000 MG/NS 100ML 2,000 MG/100 ML BAG 100 MG IVPB (13:16)
--- NOTE | 2022-05-06 14:00 | ECG_ITS ---
Measurements Intervals [place] Rate: 92 P: 10 [place]: 127 QRS: 14 QRSD: 78 T: 173 QT: 384 QTc: 477 Interpretive Statements SINUS RHYTHM CONSIDER INFERIOR INFARCT, AGE INDETERMINATE ST-T WAVE ABNORMALITY IN ANTEROLAT/HIGH LAT LEADS- CONSIDER ISCHEMIA ABNORMAL ECG COMPARED TO ECG 05/05/2022 07:56:51 SINUS RHYTHM NOW PRESENT Electronically Signed On 05-06-2022 14:38:01 GENETIC TECHNOLOGIST by Enrique De La Torre D.O.
[2022-05-06 15:03] LABS: Anion Gap 12 mmol/L (8-16); Blood Urea Nitrogen 5 mg/dL (7-17); Carbon Dioxide 25 mmol/L (22-30); Chloride 102 mmol/L (98-107); Estimated CRCL calculation 69 ml/min; Estimated Glomerular Filt Rate > 60; Glucose 126 mg/dL (65-110); Potassium 3.6 mmol/L (3.4-5.0); Sodium 139 mmol/L (137-145)
--- NOTE | 2022-05-06 15:42 | PM.DS ---
DS: Admitting Diagnosis Discharge Date 05/06/22 1542 Admitting Diagnosis Dehydration Chronic pyelonephritis Hypokalemia Transaminitis Bilateral nephrolithiasis DS: Discharge Diagnosis Discharge Diagnosis (1) Dehydration: Code(s): E86.0 - Dehydration Status: Acute (2) Chronic pyelonephritis: Code(s): N11.9 - Chronic tubulo-interstitial nephritis, unspecified Status: Acute (3) Hypokalemia: Code(s): E87.6 - Hypokalemia Status: Acute (4) Transaminitis: Code(s): R74.01 - Elevation of levels of liver transaminase levels Status: Acute (5) Bilateral nephrolithiasis: Code(s): N20.0 - Calculus of kidney Status: Acute (6) Gastroesophageal reflux disease: Qualifiers: Esophagitis presence: without esophagitis Qualified Code(s): K21.9 - Gastro-esophageal reflux disease without esophagitis Code(s): K21.9 - Gastro-esophageal reflux disease without esophagitis Status: Acute (7) Type 2 diabetes mellitus: Qualifiers: Diabetes mellitus rat exterminator insulin use: without rat exterminator use Diabetes mellitus complication status: with hyperglycemia Qualified Code(s): E11.65 - Type 2 diabetes mellitus with hyperglycemia Code(s): E11.9 - Type 2 diabetes mellitus without complications Status: Acute (8) Hypocalcemia: Code(s): E83.51 - Hypocalcemia Status: Acute DS: Summary Hospital Course Reason for hospitalization: nausea and vomiting Hospital Course: Faiza Valenzuela is a 51-year-old female with type 2 diabetes, alcohol fatty liver disease, GERD, prior H pylori infection, and emphysema. She presented to the emergency department for evaluation of nausea and vomiting.? She has not felt well for 2 and half days and has had associated symptoms including chills, low back ache, severe heartburn, nausea, and vomiting nearly every hour. She also had mild sinus congestion and cough. Her family members encouraged her to come in as had gotten so weak due to poor oral intake and ongoing vomiting. She has not had any sick contacts to her knowledge however she does work at a local [employer] and she is around members of the public all day. She denied fever, headache, sore throat, productive cough, chest pain, pleuritic pain, palpitations, hematemesis, melena, hematochezia, diarrhea, and dysuria. Workup in the emergency department was significant for leukocytosis white blood cell count of 19.4, potassium of 3.2, glucose 272, anion gap 19, total bilirubin 3.6, and mild elevation of AST, ALT, and alkaline phosphatase. Urine showed 3+ protein, trace glucose, 2+ ketones, positive nitrates, 3+ bilirubin, 79 WBCs, and many squamous cells. CT of the abdomen and pelvis showed findings of bilateral chronic pyelonephritis, bilateral nonobstructive nephrolithiasis, and hepatic steatosis. She is being admitted in this setting for aggressive IV fluid rehydration and close monitoring of her blood sugars. She was admitted to the medical floor for aggressive IV fluid rehydration. CT of the abdomen and pelvis did not show any acute findings, but did demonstrate chronic bilateral pyelonephritis and given her low back discomfort, nitrate positive urine, and leukocytosis she was started on empiric ceftriaxone pending urine culture. She has no symptoms of passing kidney stones and was recommended to follow-up with Urology as an outpatient. She received 40 mEQ KCl IV and PO, as well as IV magnesium sulfate 3 grams x1. PO thiamine, folic acid and multivitamin were started and CIWA was monitored per protocol. A1c was 11% last month and she reported starting dulaglutide injections, however, she also reported blood sugars in the 300s when feeling well prior to admission. She was also treated with meal correction sliding scale insulin, Accu-Cheks, and hypoglycemic protocol. She was started on IV Protonix, PRN analgesics and antiemetics for supportive care. She has known fatty liver dis
[2022-05-08 15:22] LABS: Ionized Calcium 4.2 mg/dL (4.8-5.6)
== END 2022-05-06 16:35 | disposition home or self-care (01) ==
LOC: ANHED 13:18 → ANH3MEDSUR 14:38
PROVIDERS: Emergency Medicine; Nurse Practitioner Family; Physician Assistant; Admitting Provider Chiropractor; Emergency Provider Emergency Medicine; PCP Family Medicine; Visit Provider Chiropractor
DX: E86.0 Dehydration (principal); N11.9 Chronic tubulo-interstitial nephritis, unspecified; E87.6 Hypokalemia; R74.01 Elevation of levels of liver transaminase levels; N20.0 Calculus of kidney; K21.9 Gastro-esophageal reflux disease without esophagitis; K70.11 Alcoholic hepatitis with ascites; F41.9 Anxiety disorder, unspecified; Z20.822 Contact with and (suspected) exposure to COVID-19; F10.90 Alcohol use, unspecified, uncomplicated; R10.9 Unspecified abdominal pain; R10.13 Epigastric pain; F32.9 Major depressive disorder, single episode, unspecified; J43.9 Emphysema, unspecified; E11.65 Type 2 diabetes mellitus with hyperglycemia; E11.40 Type 2 diabetes mellitus with diabetic neuropathy, unspecified; Z86.19 Personal history of other infectious and parasitic diseases; I10 Essential (primary) hypertension; Z90.710 Acquired absence of both cervix and uterus; E78.5 Hyperlipidemia, unspecified; K58.1 Irritable bowel syndrome with constipation; R94.31 Abnormal electrocardiogram [ECG] [EKG]; Z79.85 Long-term (current) use of injectable non-insulin antidiabetic drugs; Z79.899 Other long term (current) drug therapy; Z87.891 Personal history of nicotine dependence; Z82.49 Family history of ischemic heart disease and other diseases of the circulatory system; Z82.3 Family history of stroke; Z81.1 Family history of alcohol abuse and dependence; Z83.6 Family history of other diseases of the respiratory system; Z83.511 Family history of glaucoma; Z84.89 Family history of other specified conditions; Z82.62 Family history of osteoporosis
CPT/HCPCS: 36415; 71045; 74177; 80048; 80053; 80074; 80076; 81001; 82306; 82330; 82550; 82948; 83690; 83735; 83970; 85025; 85055; 85610; 85730; 87086; 87088; 87502; 93005; 96361; 96365; 96375; 96376; 99285; A9270; C9113; G0378; J0131; J0610; J0696; J1200; J1815; J2765; J3475; J3480; J7030; J7040; Q9967; U0003; U0005

== ENCOUNTER 2022-06-24 10:38 | Emergency (ER) | payer BC, SELFPAY ==
--- NOTE | ~2022-06-24 | CT_ITS ---
EXAMINATION: CT abdomen pelvis w con DATE: 06/24/2022 11:50 INDICATION: Epigastric pain, nausea and vomiting TECHNIQUE: Computed tomography (CT) of the abdomen and pelvis was performed with 100 mL Omnipaque-350 intravenous contrast. Automated exposure control and iterative reconstruction technique were employe d. The dose-length product was 225.64 mGy-cm. COMPARISON: 05/05/2022 FINDINGS: Mild discoid atelectasis at the lingula and minimal dependent atelectasis in the bilateral lower lobe s. Heart size is normal. No pericardial or pleural effusion. Splenomegaly measuring 17.2 cm in jami l length which along with dilated coronary vein and gastroesophageal collaterals and recanalized umbi lical vein is consistent with portal venous hypertension. There is a coarsened texture to the hepatic enhancement suspicious for cirrhosis but without definitive surface nodularity to more specifically suggest this. Minimal perihepatic ascites along the anterior margin of the right hepatic lobe and at the gallbladder fossa along the otherwise normal gallbladder. Pancreas and bilateral adrenal glands a re normal. Bilateral nonobstructing nephrolithiasis with 2 mm stone at a lower pole calyx of the left kidney and 2 mm stone more peripherally in the region of cortical scarring at the lower pole of the left kidney. There are additional regions of cortical scarring at both kidneys likely sequela of prio r infection or infarction. A couple right renal cysts, the larger measuring 1 cm at the upper pole. N o hydronephrosis in either kidney. No bowel obstruction. Normal appendix. Bladder is normal. The uter us is not identified and has likely been surgically resected. Small amount of ascites in the pelvis. No abscess or free intraperitoneal gas. Mild lumbar dextrocurvature with minimal spondylosis. IMPRESSION: 1. Splenomegaly and portosystemic collaterals including gastroesophageal varices consistent with port al venous hypertension. Appearance of the liver suggestive but not diagnostic of cirrhosis. Correlate with clinical history. 2. Small amount of ascites. 3. Bilateral nonobstructing nephrolithiasis with regions of cortical scarring at both kidneys which m ay represent sequela of prior infection or infarction. Reviewed, dictated and finalized at location A. ENTRY SPECIALIST IMPRESSION: 1. Splenomegaly and portosystemic collaterals including gastroesophageal varice s consistent with portal venous hypertension. Appearance of the liver suggestiv e but not diagnostic of cirrhosis. Correlate with clinical history. 2. Small amount of ascites. 3. Bilateral nonobstructing nephrolithiasis with regions of cortical scarring a t both kidneys which may represent sequela of prior infection or infarction.
[2022-06-24 10:55] VITALS: BP 152/94; PULSE 117; RESP 20; TEMP 37.1; O2SAT 100
--- NOTE | 2022-06-24 11:12 | ED.RECABL ---
HPI - Recheck/Abnormal Lab/Rx General Chief Complaint: Recheck/Abnormal Lab/Rx Stated Complaint: uncontrolled diabetes Time Seen by Provider: 06/24/22 11:01 History of Present Illness HPI narrative: Patient is a 51-year-old female here for evaluation of epigastric abdominal pain, nausea and vomiting over the past 2 days. Patient states that she saw her PCP and had labs done including a urinalysis. Urinalysis was unrevealing but she was told that her blood sugar was dangerously elevated and was told to come to the ED immediately. Patient waited 2 days due to the holidays and presents today due to continued symptoms. She does have history of type 2 diabetes Trulicity but has not been taking her other pill. that she is supposed to. Denies dysuria, urgency, frequency, shortness of breath, chest pain, fevers or chills. Related Data Allergies Allergy/AdvReac Type Severity Reaction Status Date / Time No Known Allergies Allergy Unknown Verified 06/24/22 10:59 Review of Systems Review of Systems: Gen: Denies fevers or chills Eyes: Denies eye pain or visual change ENT: Denies congestion Respiratory: Denies shortness of breath or cough CV: Denies chest pain or palpitations GI: Reports abdominal pain, nausea and vomiting. denies burning, urgency, frequency or hematuria Musculoskeletal: Denies back pain or muscle pain Neuro: Denies numbness, tingling, weakness or focal weakness Skin: Denies rash Except as documented, all other systems reviewed and negative PMF Past Medical History Medical History Alcohol abuse Alcoholic hepatitis without ascites Anxiety Depression Diabetes mellitus type 2 in nonobese Emphysema lung Essential hypertension Fatty liver GERD (gastroesophageal reflux disease) History of Helicobacter pylori infection Hyperlipidemia Irritable bowel syndrome with constipation Lung nodules Neuropathy Other chronic pain Other hyperlipidemia Tachycardia Tobacco abuse Vitamin D deficiency Surgical History Surgical History H/O: hysterectomy Previous section Family History Family History Father Hypertension Family history of throat cancer Family history of heart disease in male family member before age 55 Mother Cerebrovascular accident Grandparent Carcinoma of colon Sibling No problems noted. Other ADD (attention deficit disorder) Alcoholism Asthma COPD (chronic obstructive pulmonary disease) Cancer Glaucoma Heart disease Lung disease Osteoporosis Social History Social History Social History: Surrogate medical decision maker: Delta Valenzuela, spouse. Code status: Full code. Smoking packs per day: 1 Smoking cigarettes per day: 20.0 Years smoked: 8 Smoking pack-years: 8.00 Smoking status: Former smoker Tobacco type: cigarettes Second hand tobacco smoke exposure: No Alcohol intake: current Drinks per week: 3 Alcohol use details: 3 ounces of vodka several days a week after work. Drank heavier in the past. Substance use: never Substance use type: does not use Lack of Transportation: YES Lack of Food: Never True Current Housing: I Have Housing Concerned About Future Housing: No Difficulty Paying Gas/Electric Bills: No Difficulty Paying for Meds: No Currently Unemployed: No Education: High School Diploma/GED Difficulty w/ Childcare or Family Care: No Additional living arrangements comments: -Delta Additional occupation/education comments: [employer] Spiritual care concerns: No Exam Narrative: APPEARANCE: Well appearing, no pain in distress, well-nourished. Head: Normocephalic and atraumatic. EYES: PERRLA/EOMI, conjunctivae clear NOSE: No nasal drainage EARS: External ear
[2022-06-24 11:24] LABS: Glucose Point of Care 326 mg/dl (65-105)
[2022-06-24 11:25] LABS: Add Urine Microscopic? YES; Appearance Urine Clear (Clear); Bilirubin Urine Negative (Negative); Blood Urine Negative (Negative); Color Urine Light Yellow (Yellow); Glucose Urine UA 3+ mg/dL (Negative); Ketones Urine Negative (Negative); Leukocyte Esterase Ur Trace LEU/UL (Negative); Nitrate Urine Negative (Negative); Protein Urine Negative (Negative); Specific Grav Ur 1.015 (1.001-1.035)
[2022-06-24] MEDS: SODIUM CHLORIDE 0.9% IV 1,000 ML 999 ML IV CONT ×2 (11:26→12:25)
[2022-06-24] MEDS: ONDANSETRON INJ 4 MG/2 ML VIAL IV PUSH (11:27)
[2022-06-24 11:29] LABS: Alanine Aminotransferase 71 U/L (6-35); Albumin Level 3.7 g/dL (3.5-5.1); Alkaline Phosphatase 176 U/L (38-126); Anion Gap 6 mmol/L (8-16); Aspartate Amino Transferase 92 U/L (14-36); Bilirubin,Total 1.8 mg/dL (0.2-1.3); Blood Urea Nitrogen 2 mg/dL (7-17); Calcium 8.5 mg/dL (8.4-10.2); Carbon Dioxide 33 mmol/L (22-30); Chloride 92 mmol/L (98-107); Estimated CRCL calculation 69 ml/min; Estimated Glomerular Filt Rate > 60; Glucose 316 mg/dL (65-110); Lipase 95 U/L (23-300); Magnesium 1.6 mg/dL (1.6-2.3); Phosphorus 3.6 mg/dL (2.5-4.5); Potassium 4.4 mmol/L (3.4-5.0); Sodium 131 mmol/L (137-145)
[2022-06-24 11:37] LABS: Mucus Urine Rare /lpf; Squamous Epithelial Cell Urine Few /hpf (Few)
[2022-06-24 11:41] LABS: Basophils Percent Auto 0.5 % (0.2-1.2); Eosinophils Percent Auto 0.3 % (0-4.4); Hematocrit 35.3 % (37.0-47.0); Hemoglobin 11.8 g/dL (12.0-15.0); Immature Granulocyte Absolute 0.02 K/mm3 (0.00-0.031); Immature Granulocyte Percent A 0.3 % (0-0.5); Immature Platelet Fraction Pct 9.7 % (0.9-11.2); Lymphocytes Absolute Auto 1.04 K/mm3 (0.9-3.2); Lymphocytes Percent Auto 17.5 % (18.3-44.2); Mean Corpuscular HGB Conc 33.4 g/dl (32-36); Mean Corpuscular Hemoglobin 37.1 pg (26-34); Mean Platelet Volume 11.4 fl (7.4-10.4); Monocytes Absolute Auto 0.3 K/mm3 (0.1-0.6); Monocytes Percent Auto 5.5 % (2.6-8.5); Neutrophils Absolute Auto 4.5 K/mm3 (1.3-6.7); Neutrophils Percent Auto 75.9 % (45.5-73.1); Platelet Count Result 81 k/mm3 (150-375); Red Blood Count 3.18 M/mm3 (4.2-5.4); Red Cell Distribution Width 12.4 % (11.5-14.5)
[2022-06-24] MEDS: MORPHINE SULFATE (*CRX) 4 MG/ML INJ IV PUSH (13:27)
[2022-06-24 13:29] LABS: INR 1.3; Prothrombin Time 15.7 Seconds (11.1-14.7)
[2022-06-24 13:30] LABS: Partial Thromboplastin Time 30.7 SECONDS (22.3-36.8)
[2022-06-24 14:29] VITALS: BP 147/91; PULSE 111; RESP 20; O2SAT 97
[2022-06-24] MEDS: MORPHINE SULFATE (*CRX) 2 MG/ML INJ IV PUSH (14:29)
[2022-06-24 14:40] LABS: Glucose Point of Care 250 mg/dl (65-105)
== END 2022-06-24 15:10 | disposition home or self-care (01) ==
PROVIDERS: Emergency Provider Physician Assistant; PCP Family Medicine
DX: R10.13 Epigastric pain (principal); E11.40 Type 2 diabetes mellitus with diabetic neuropathy, unspecified; J43.9 Emphysema, unspecified; I10 Essential (primary) hypertension; K58.1 Irritable bowel syndrome with constipation; K21.9 Gastro-esophageal reflux disease without esophagitis; E55.9 Vitamin D deficiency, unspecified; E78.49 Other hyperlipidemia; F10.10 Alcohol abuse, uncomplicated; Z90.710 Acquired absence of both cervix and uterus; Z87.891 Personal history of nicotine dependence; Z79.84 Long term (current) use of oral hypoglycemic drugs; Z79.85 Long-term (current) use of injectable non-insulin antidiabetic drugs; Z91.128 Patient's intentional underdosing of medication regimen for other reason; R16.1 Splenomegaly, not elsewhere classified; I86.4 Gastric varices; R18.8 Other ascites; N20.0 Calculus of kidney
CPT/HCPCS: 36415; 74177; 80053; 81001; 82948; 83690; 83735; 84100; 85025; 85055; 85610; 85730; 96361; 96374; 96375; 96376; 99284; J2270; J2405; J7030; Q9967

== ENCOUNTER 2022-08-01 07:18 | Outpatient (CLI) | payer BC, SELFPAY ==
--- NOTE | ~2022-08-01 | US_ITS ---
Limited Abdominal Sonogram: Real-time sonographic imaging of the right upper quadrant was performed. Clinical History: Abnormal serum enzymes Findings: The liver appears normal with no evidence of mass lesion or bile duct dilatation. Main por zaki vein demonstrates normal direction of flow. The gallbladder is well distended, and appears normal with no evidence of gallstone or wall thickening. The common bile duct measures 5 mm. The visualize d pancreas, aorta, and IVC are unremarkable. Impression: No significant abnormality seen. Reviewed, dictated and finalized at location M. APPRENTICE PASTRY Impression: No significant abnormality seen.
== END 2022-08-01 07:19 | disposition home or self-care (01) ==
PROVIDERS: PCP Family Medicine; Visit Provider Internal Medicine Gastroenterology
DX: R74.8 Abnormal levels of other serum enzymes (principal); K70.30 Alcoholic cirrhosis of liver without ascites
CPT/HCPCS: 76705

== ENCOUNTER 2022-09-12 14:25 | Emergency (ER) | payer BC, SELFPAY ==
[2022-09-12 14:35] VITALS: BP 154/70; PULSE 112; RESP 15; TEMP 36.6; O2SAT 100
== END 2022-09-12 17:05 | disposition left against medical advice (07) ==
LOC: ANHED 17:16
PROVIDERS: PCP Family Medicine
DX: R60.0 Localized edema (principal)
CPT/HCPCS: 99199

== ENCOUNTER 2022-09-12 17:28 | Emergency (ER) | payer BC, SELFPAY ==
[2022-09-12 17:39] VITALS: BP 134/63; PULSE 118; RESP 16; TEMP 37.3; O2SAT 100
--- NOTE | 2022-09-12 17:51 | ED.EXTPRO ---
HPI - Extremity Problem General Chief complaint: Extremity Problem,Nontraumatic Stated complaint: Swollen Legs, Ankles Time Seen by Provider: 09/12/22 17:54 Source: patient Mode of arrival: ambulatory Limitations: no limitations History of Present Illness HPI Narrative: 52-year-old female with a history of alcoholic cirrhosis, type 2 diabetes, hypertension presented for complaint of edema to both lower extremities worsening over the last 3 weeks. She endorses swelling from knees to toes. She has been elevating her legs after work with no relief. She states she is on her feet for her job. She contacted PCP yesterday who advised ER/UC. Patient states she waited in the ER for several hours today before coming to the [facility]. She currently denies chest pain, palpitations, shortness of breath, abdominal pain, fevers or chills. Endorses occasional decreased urinary output, occasional decreased appetite. Related Data Allergies Allergy/AdvReac Type Severity Reaction Status Date / Time No Known Allergies Allergy Unknown Verified 09/12/22 17:46 Review of Systems Review of Systems: CONSTITUTIONAL: Denies body aches, fever, chills, or sweats. ENT: Denies rhinorrhea, congestion, sore throat, or otalgia. CARDIOVASCULAR: Denies chest pain, palpitations; Reports edema. RESPIRATORY: Denies worsening cough or dyspnea. GASTROINTESTINAL: Denies abdominal pain, nausea, vomiting, or diarrhea. GENITOURINARY: Denies dysuria or hematuria. SKIN: Denies rash, itching, or wounds. MUSCULOSKELETAL: Denies back pain, joint pain, or myalgia. NEUROLOGIC: Denies headache, numbness, tingling, or weakness. All systems reviewed & are unremarkable except as noted in HPI and below PMFSH Past Medical History Medical History Alcohol abuse Alcoholic hepatitis without ascites Anxiety Cirrhosis, alcoholic Depression Diabetes mellitus type 2 in nonobese Emphysema lung Essential hypertension Fatty liver GERD (gastroesophageal reflux disease) History of Helicobacter pylori infection Hyperlipidemia Irritable bowel syndrome with constipation Lung nodules Nausea and vomiting in adult Neuropathy Other chronic pain Other hyperlipidemia Tachycardia Thrombocytopenia Tobacco abuse Vitamin D deficiency Surgical History Surgical History H/O: hysterectomy Previous section Family History Family History Father Hypertension Family history of throat cancer Family history of heart disease in male family member before age 55 Mother Cerebrovascular accident Grandparent Carcinoma of colon Sibling No problems noted. Other ADD (attention deficit disorder) Alcoholism Asthma COPD (chronic obstructive pulmonary disease) Cancer Glaucoma Heart disease Lung disease Osteoporosis Social History Social History Social History: Surrogate medical decision maker: Delta Valenzuela, spouse. Code status: Full code. Smoking packs per day: 1 Smoking cigarettes per day: 20.0 Years smoked: 8 Smoking pack-years: 8.00 Smoking status: Former smoker Tobacco type: cigarettes Second hand tobacco smoke exposure: No Alcohol intake: current Drinks per week: 3 Alcohol use details: 3 ounces of vodka several days a week after work. Drank heavier in the past. Substance use: never Substance use type: does not use Lack of Transportation: YES Lack of Food: Never True Current Housing: I Have Housing Concerned About Future Housing: No Difficulty Paying Gas/Electric Bills: No Difficulty Paying for Meds: No Currently Unemployed: No Education: High School Diploma/GED Difficulty w/ Childcare or Family Care: No Living arrangements: with family Additional living arrangements comments: [place]
== END 2022-09-12 18:33 | disposition home or self-care (01) ==
PROVIDERS: Emergency Provider Nurse Practitioner Family; PCP Family Medicine
DX: R60.0 Localized edema (principal); Z87.891 Personal history of nicotine dependence; E11.9 Type 2 diabetes mellitus without complications; I10 Essential (primary) hypertension; K76.0 Fatty (change of) liver, not elsewhere classified; K21.9 Gastro-esophageal reflux disease without esophagitis; E78.5 Hyperlipidemia, unspecified; K70.30 Alcoholic cirrhosis of liver without ascites; J43.9 Emphysema, unspecified
CPT/HCPCS: 99211; G0463

== ENCOUNTER 2022-09-12 19:50 | Emergency (ER) | payer BC, SELFPAY ==
--- NOTE | ~2022-09-12 | US_ITS ---
EXAMINATION:US venous doppler LE BI INDICATION:Leg edema TECHNIQUE: Multiple grayscale, color flow and Doppler images of the right and left lower extremity de ep venous systems were obtained and reviewed. COMPARISON:Comparison to ultrasound dated 09/25/2021 FINDINGS: The common femoral, superficial femoral and popliteal veins demonstrate normal respiratory variation, augmentation and compressibility. Color flow is also seen within the posterior tibial, pe roneal, greater saphenous and profunda veins. IMPRESSION: 1: No lower extremity deep venous thrombosis. Reviewed, dictated and finalized at location A.
--- NOTE | ~2022-09-12 | XR_ITS ---
EXAMINATION: XR chest 2V 09/12/2022 21:37 INDICATION: Cough. Hypertension. Emphysema. PROCEDURE: 2 view chest COMPARISON: Comparison to multiple prior studies sequentially, with oldest reviewed study dated 02/23. FINDINGS: The lungs are clear. The cardiomediastinal silhouette is within normal limits. There are no pleural effusions. There is no pneumothorax suspected. IMPRESSION: 1: NO ACUTE CARDIOPULMONARY DISEASE. Reviewed, dictated and finalized at location A.
[2022-09-12 20:21] LABS: Basophils Percent Auto 0.3 % (0.2-1.2); Eosinophils Percent Auto 0.6 % (0-4.4); Hematocrit 28.7 % (37.0-47.0); Hemoglobin 9.7 g/dL (12.0-15.0); Immature Granulocyte Absolute 0.02 K/mm3 (0.00-0.031); Immature Granulocyte Percent A 0.3 % (0-0.5); Immature Platelet Fraction Pct 4.4 % (0.9-11.2); Lymphocytes Absolute Auto 1.15 K/mm3 (0.9-3.2); Mean Corpuscular HGB Conc 33.8 g/dl (32-36); Mean Corpuscular Hemoglobin 37.5 pg (26-34); Mean Corpuscular Volume 110.8 fl (80-100); Mean Platelet Volume 9.9 fl (7.4-10.4); Monocytes Absolute Auto 0.4 K/mm3 (0.1-0.6); Monocytes Percent Auto 6.9 % (2.6-8.5); Neutrophils Absolute Auto 4.7 K/mm3 (1.3-6.7); Neutrophils Percent Auto 73.9 % (45.5-73.1); Platelet Count Result 87 k/mm3 (150-375); Red Blood Count 2.59 M/mm3 (4.2-5.4); Red Cell Distribution Width 15.5 % (11.5-14.5); White Blood Count 6.4 K/mm3 (4.5-10.0)
[2022-09-12 20:28] VITALS: BP 143/69; PULSE 115; RESP 20; TEMP 37.2; O2SAT 99
[2022-09-12 20:33] LABS: Alanine Aminotransferase 22 U/L (6-35); Albumin Level 3.5 g/dL (3.5-5.1); Alkaline Phosphatase 218 U/L (38-126); Anion Gap 8 mmol/L (8-16); Aspartate Amino Transferase 36 U/L (14-36); Bilirubin,Total 2.2 mg/dL (0.2-1.3); Blood Urea Nitrogen 4 mg/dL (7-17); Carbon Dioxide 27 mmol/L (22-30); Chloride 98 mmol/L (98-107); Estimated Glomerular Filt Rate > 60; Glucose 288 mg/dL (65-110); Potassium 3.7 mmol/L (3.4-5.0); Sodium 133 mmol/L (137-145)
--- NOTE | 2022-09-12 20:37 | ECG_ITS ---
Measurements Intervals [place] Rate: 112 P: 3 CO: 122 QRS: 12 QRSD: 86 T: 10 QT: 290 QTc: 396 Interpretive Statements SINUS TACHYCARDIA LOW QRS VOLTAGE IN PRECORDIAL LEADS BORDERLINE T WAVE ABNORMALITY- ANT/INF LEADS BASELINE ARTIFACT- I, II, III, AVR, AVL, AVF, V1-V6 ABNORMAL ECG COMPARED TO ECG 05/06/2022 14:27:12 SINUS TACHYCARDIA NOW PRESENT Electronically Signed On 09-12-2022 21:26:56 CDT by Enrique De La Torre D.O.
[2022-09-12 20:41] LABS: NT Pro B Type Natriuretic Pept 243 pg/mL (19.9-100)
[2022-09-12 20:42] LABS: Anisocytosis 1+ (NORMAL); Macrocytosis 1+ (NORMAL); Ovalocytes 1+ (NORMAL); Platelet Estimate Decreased (Adequate); Schistocytes None Seen (NORMAL)
--- NOTE | 2022-09-13 00:44 | ED.GENADULT ---
HPI - General Adult General Chief complaint: Unspecified Stated complaint: bilateral pedal edema Time Seen by Provider: 09/12/22 23:58 History of Present Illness HPI narrative: this is a 52-year-old female presenting ED with chief complaint of lower extremity edema. She has been having edema that is worse at the end of the day. She was at works a job where she stands all day. She does not wear compression stockings. She has been sleeping with her legs elevated at night which has helped a little bit but the edema keeps recurring. She was seen at an urgent care was told she needs to come to the emergency department to be evaluated for heart failure possible DVT PE. The patient is currently denying any complaints outside of the swelling to her legs and some neuropathy. She denies fever chills nausea vomiting diarrhea chest pain difficulty breathing. Related Data Allergies Allergy/AdvReac Type Severity Reaction Status Date / Time No Known Allergies Allergy Unknown Verified 09/12/22 20:35 PMFSH Past Medical History Medical History Alcohol abuse Alcoholic hepatitis without ascites Anxiety Cirrhosis, alcoholic Depression Diabetes mellitus type 2 in nonobese Emphysema lung Essential hypertension Fatty liver GERD (gastroesophageal reflux disease) History of Helicobacter pylori infection Hyperlipidemia Irritable bowel syndrome with constipation Lung nodules Nausea and vomiting in adult Neuropathy Other chronic pain Other hyperlipidemia Tachycardia Thrombocytopenia Tobacco abuse Vitamin D deficiency Surgical History Surgical History H/O: hysterectomy Previous section Family History Family History Father Hypertension Family history of throat cancer Family history of heart disease in male family member before age 55 Mother Cerebrovascular accident Grandparent Carcinoma of colon Sibling No problems noted. Other ADD (attention deficit disorder) Alcoholism Asthma COPD (chronic obstructive pulmonary disease) Cancer Glaucoma Heart disease Lung disease Osteoporosis Social History Social History Social History: Surrogate medical decision maker: Delta Valenzuela, spouse. Code status: Full code. Smoking packs per day: 1 Smoking cigarettes per day: 20.0 Years smoked: 8 Smoking pack-years: 8.00 Smoking status: Former smoker Tobacco type: cigarettes Second hand tobacco smoke exposure: No Alcohol intake: current Drinks per week: 3 Alcohol use details: 3 ounces of vodka several days a week after work. Drank heavier in the past. Substance use: never Substance use type: does not use Lack of Transportation: YES Lack of Food: Never True Current Housing: I Have Housing Concerned About Future Housing: No Difficulty Paying Gas/Electric Bills: No Difficulty Paying for Meds: No Currently Unemployed: No Education: High School Diploma/GED Difficulty w/ Childcare or Family Care: No Living arrangements: with family Additional living arrangements comments: -Delta Occupation/Education: occupation Additional occupation/education comments: [employer] care concerns: No Exam Narrative: APPEARANCE: No apparent distress. Head: atraumatic. EYES: EOMI, NOSE: Atraumatic NECK: Trachea midline RESPIRATORY: No increased rate of breathing Clear to auscultation bilaterally CARDIOVASCULAR: RRR, patient has +2 pitting edema of the foot up to the ankles. There is no erythema warmth or overlying skin changes. pulses are +2. ABDOMINAL: Non-distended , soft nondistended no guarding or rebound MUSCULOSKELETAl: No obvious deformities NEURO: Alert. Moving 4/4 extremities SKIN:: Warm, dry. Normal color PSYCHIATRIC: Normal af
[2022-09-13 00:51] VITALS: BP 128/79; PULSE 102; RESP 18; O2SAT 98
== END 2022-09-13 01:07 | disposition home or self-care (01) ==
PROVIDERS: Emergency Provider Emergency Medicine; PCP Family Medicine
DX: R60.0 Localized edema (principal); I10 Essential (primary) hypertension; J43.9 Emphysema, unspecified; E78.5 Hyperlipidemia, unspecified; E11.40 Type 2 diabetes mellitus with diabetic neuropathy, unspecified; E78.49 Other hyperlipidemia; E55.9 Vitamin D deficiency, unspecified; K58.1 Irritable bowel syndrome with constipation; K21.9 Gastro-esophageal reflux disease without esophagitis; Z90.710 Acquired absence of both cervix and uterus; Z87.891 Personal history of nicotine dependence; Z79.85 Long-term (current) use of injectable non-insulin antidiabetic drugs; Z79.84 Long term (current) use of oral hypoglycemic drugs
CPT/HCPCS: 36415; 71046; 80053; 83880; 85025; 85055; 93005; 93970; 99284

== ENCOUNTER 2022-10-24 11:30 | Outpatient (CLI) | payer BC, SELFPAY ==
--- NOTE | ~2022-10-24 | XR_ITS ---
Clinical Indication: Cough PA and lateral views of the chest: Comparison: 09/12/2022 Findings: The lungs are clear, without evidence of focal consolidation or pleural effusion. Cardiome diastinal silhouette is within normal limits. Bones and soft tissues are unremarkable. Impression: Normal chest. Reviewed, dictated and finalized at location . Impression: Normal chest.
--- NOTE | ~2022-10-24 | CT_ITS ---
EXAMINATION: CT abdomen pelvis w con DATE: 10/24/2022 12:12 INDICATION: Abdominal pain TECHNIQUE: Computed tomography (CT) of the abdomen and pelvis was performed with 100 mL Omnipaque-350 intravenous contrast. Automated exposure control and iterative reconstruction technique were employe d. The dose-length product was 283.86 mGy-cm. COMPARISON: 06/24/2022 and 01/26/2020. FINDINGS: Discoid atelectasis at the bilateral lung bases. Heart size is normal. No pericardial or pleural effu pancho. Moderate amount of ascites throughout the abdomen and pelvis. There is heterogeneous enhancemen t of the liver with subtle liver surface nodularity consistent with cirrhosis. Splenomegaly measuring 17.6 cm in maximal length and which along with dilated coronary vein, gastroesophageal varices and r ecanalized umbilical vein as well as all consistent with portal venous hypertension. Gallbladder, freeman creas and bilateral adrenal glands are normal. There is scattered cortical scarring at both kidneys m ore prominent on the left consistent with sequela of prior infarct or infection. 2 mm nonobstructing stones at the lower poles of both kidneys. A couple subcentimeter cysts versus calyceal diverticula a ssociated with cortical scarring at the upper pole of the right kidney. There is mild urothelial enha ncement at the bilateral renal pelvises sees which can be seen with ascending urinary tract infection although there is no stranding in the surrounding fat to more specifically suggest this. Bladder is normal. Bowels including the appendix are normal. Small renal portosystemic collaterals also likely r elated to portal venous hypertension. The uterus is not identified and has likely been surgically res ected. No abscess or free intraperitoneal gas. No pathologically enlarged abdominal or pelvic lymphad enopathy. Mild lower thoracic and minimal lumbar spondylosis. IMPRESSION: 1. Cirrhosis with likely secondary moderate ascites throughout the abdomen and pelvis. 2. Secondary portal venous hypertension with splenomegaly and multiple persistent collaterals as deta iled above. 3. Bilateral nonobstructing nephrolithiasis with regions of cortical scarring at both kidneys likely scarring or infection or infarction. 4. Mild urothelial enhancement at the bilateral renal pelvises sees which could be seen with ascendin g urinary tract infection. Correlate with urinalysis. Reviewed, dictated and finalized at location A. IMPRESSION: 1. Cirrhosis with likely secondary moderate ascites throughout the abdomen and pelvis. 2. Secondary portal venous hypertension with splenomegaly and multiple persiste nt collaterals as detailed above. 3. Bilateral nonobstructing nephrolithiasis with regions of cortical scarring a t both kidneys likely scarring or infection or infarction. 4. Mild urothelial enhancement at the bilateral renal pelvises sees which could be seen with ascending urinary tract infection. Correlate with urinalysis.
[2022-10-24 12:07] LABS: Estimated Glomerular Filt Rate 59
[2022-10-24 13:23] LABS: Basophils Percent Auto 0.4 % (0.2-1.2); Eosinophils Percent Auto 0.4 % (0-4.4); Hemoglobin 10.7 g/dL (12.0-15.0); Immature Granulocyte Absolute 0.03 K/mm3 (0.00-0.031); Immature Granulocyte Percent A 0.5 % (0-0.5); Immature Platelet Fraction Pct 5.8 % (0.9-11.2); Lymphocytes Absolute Auto 1.21 K/mm3 (0.9-3.2); Lymphocytes Percent Auto 21.7 % (18.3-44.2); Mean Corpuscular HGB Conc 33.4 g/dl (32-36); Mean Corpuscular Hemoglobin 38.9 pg (26-34); Mean Corpuscular Volume 116.4 fl (80-100); Mean Platelet Volume 10.6 fl (7.4-10.4); Monocytes Absolute Auto 0.3 K/mm3 (0.1-0.6); Monocytes Percent Auto 6.1 % (2.6-8.5); Neutrophils Percent Auto 70.9 % (45.5-73.1); Platelet Count Result 72 k/mm3 (150-375); Red Blood Count 2.75 M/mm3 (4.2-5.4); Red Cell Distribution Width 14.6 % (11.5-14.5); White Blood Count 5.6 K/mm3 (4.5-10.0)
[2022-10-24 13:43] LABS: Alanine Aminotransferase 63 U/L (6-35); Albumin Level 2.9 g/dL (3.5-5.1); Alkaline Phosphatase 376 U/L (38-126); Amylase 41 U/L (30-110); Anion Gap 4 mmol/L (8-16); Aspartate Amino Transferase 143 U/L (14-36); Bilirubin,Total 1.9 mg/dL (0.2-1.3); Blood Urea Nitrogen 4 mg/dL (7-17); Calcium 7.6 mg/dL (8.4-10.2); Carbon Dioxide 34 mmol/L (22-30); Chloride 96 mmol/L (98-107); Estimated Glomerular Filt Rate > 60; Glucose 303 mg/dL (65-110); Lipase 122 U/L (23-300); Potassium 3.4 mmol/L (3.4-5.0); Sodium 134 mmol/L (137-145)
[2022-10-24 13:45] LABS: Lactic Acid 2.3 mmol/L (0.7-2.0)
[2022-10-24 13:52] LABS: NT Pro B Type Natriuretic Pept 182 pg/mL (19.9-100)
== END 2022-10-24 11:31 | disposition home or self-care (01) ==
LOC: ANHIMG 11:37
PROVIDERS: PCP Family Medicine; Visit Provider Nurse Practitioner Family
DX: R10.9 Unspecified abdominal pain (principal); K70.30 Alcoholic cirrhosis of liver without ascites; R05.9 Cough, unspecified; R60.0 Localized edema; R06.02 Shortness of breath; K76.6 Portal hypertension; R16.1 Splenomegaly, not elsewhere classified; N20.0 Calculus of kidney
CPT/HCPCS: 71046; 74177; 80053; 82150; 83605; 83690; 83880; 85025; 85055; Q9967

== ENCOUNTER 2022-10-24 14:22 | Observation (INO) | payer BC, SELFPAY ==
[2022-10-24] VITALS (13 sets, daily range): BP systolic 95–166; BP diastolic 41–95; PULSE 110–118; RESP 12–24; TEMP 36.5–36.6; O2SAT 96–100; BMI 22.8
--- NOTE | ~2022-10-24 | US_ITS ---
EXAMINATION: US paracentesis abd w/image DATE: 10/25/2022 11:09 INDICATION: Alcoholic cirrhosis. Ascites. TECHNIQUE: The procedure and its risks and benefits were discussed with the patient. Potential risks discussed included bleeding and infection. The skin was prepped and draped in sterile fashion. 1% lid ocaine was used for local anesthesia. Under ultrasound guidance, a 5 Fr catheter with trochar was adv anced into the ascites in the left lower quadrant. Fluid was aspirated into vacuum bottles. The jewell ter was removed, and a dressing was applied. There were no immediate complications. FINDINGS: Ultrasound images demonstrate ascites and the catheter within the fluid. IMPRESSION: 1. Successful ultrasound-guided paracentesis yielding 2100 mL of cloudy yellowish fluid. Reviewed, dictated and finalized at location A. IMPRESSION: 1. Successful ultrasound-guided paracentesis yielding 2100 mL of cloudy yellow naveen fluid.
--- NOTE | ~2022-10-24 | US_ITS ---
EXAMINATION: US venous doppler [facility] DATE: 10/25/2022 11:07 INDICATION: Bilateral lower limb swelling TECHNIQUE: Minor scale images without and with compression and Doppler images of the bilateral lower e xtremity veins were obtained. COMPARISON: 09/12/2022 FINDINGS: The right common femoral vein, profunda femoral vein, femoral vein, popliteal vein, peroneal trunk, p osterior tibial veins, and greater saphenous vein are patent. The left common femoral vein, profunda femoral vein, femoral vein, popliteal vein, peroneal trunk, po sterior tibial veins, and greater saphenous vein are patent. IMPRESSION: 1. Patent bilateral lower extremity veins. No evidence of deep venous thrombosis. Reviewed, dictated and finalized at location B. IMPRESSION: 1. Patent bilateral lower extremity veins. No evidence of deep venous thrombosi s.
--- NOTE | 2022-10-24 17:00 | ED.ABDPAIN ---
HPI - Abdominal Pain General Chief Complaint: Abdominal Pain <FRANCE Nascimento Last Filed: 10/25/22 01:32> Stated Complaint: distended abdomen <FRANCE Nascimento Last Filed: 10/25/22 01:32> Time Seen by Provider: 10/24/22 16:55 <FRANCE Nascimento Last Filed: 10/25/22 01:32> Source: patient and old records reviewed <FRANCE Nascimento Last Filed: 10/25/22 01:32> Mode of arrival: ambulatory <FRANCE Nascimento Last Filed: 10/25/22 01:32> Limitations: no limitations <FRANCE Nascimento Last Filed: 10/25/22 01:32> History of Present Illness HPI narrative: Patient is a 52 y/o female, with past medical history of DM, alcoholism, who presents to the ED with c/o abdominal swelling and pain. Patient reports having swelling and bloating in her abdomen for the last 1 month which has gotten worse over the last 1 week. She reports having pain throughout her upper and lower abdomen, worse over the last several days. Patient was seen by her PCP for this today and had outpatient blood work, UA, CT scan of abdomen pelvis performed today. She was then referred to the ED for further evaluation. CT scan of abdomen pelvis showed findings consistent with cirrhosis, portal hypertension, possible UTI. Patient's urinalysis did appear infected. Patient does report having dysuria, urinary frequency over the last few days, in addition to intermittent flank pain. She further complains of nausea, vomiting, mucous diarrhea, swelling in her lower extremities, and difficulty breathing from the swelling in her abdomen pushing upwards. Outpatient chest x-ray was negative. BNP was within normal limits. Patient denies previous diagnosis of cirrhosis, though I do see this in her records. She does report history of fatty liver. She sees Dr. Trinh for IBS-C. She is a daily drinker and has been for several years, 3-4 drinks a day. She last drank yesterday. She denies ever having alcohol withdrawal symptoms or seizures. <FRANCE Nascimento Last Filed: 10/25/22 01:32> Related Data Allergies/Adverse Reactions: Allergies Allergy/AdvReac Type Severity Reaction Status Date / Time No Known Allergies Allergy Unknown Verified 10/24/22 09:03 <Jacqueline Valera PA-C - Last Filed: 10/25/22 01:32> Review of Systems Review of Systems: CONSTITUTIONAL: Denies fever, chills, or sweats. CARDIOVASCULAR: See HPI. RESPIRATORY: See HPI. GASTROINTESTINAL: See HPI. GENITOURINARY: See HPI. SKIN: Denies rash or itching. MUSCULOSKELETAL: Denies back pain, joint pain, or myalgia. NEUROLOGIC: Denies headache, numbness, or weakness. <Jacqueline Valera PA-C - Last Filed: 10/25/22 01:32> All systems reviewed & are unremarkable except as noted in HPI and below <Jacqueline Valera PA-C - Last Filed: 10/25/22 01:32> [facility] Past Medical History Medical History: Medical History Alcohol abuse Anxiety Cirrhosis Depression Emphysema lung Essential hypertension Fatty liver History of Helicobacter pylori infection Hyperlipidemia Irritable bowel syndrome with constipation Lung nodules Neuropathy Thrombocytopenia Tobacco abuse Vitamin D deficiency <Jacqueline Valera PA-C - Last Filed: 10/25/22 01:32> Surgical History Surgical History: Surgical History History of section History of hysterectomy <Jacqueline Valera PA-C - Last Filed: 10/25/22 01:32> Family History Family History: Family History Father Hypertension Family history of throat cancer Family history of heart disease in male family member before age 55 Mother Cerebrovascular accident Grandparent Carcinoma of colon Sibling No problems noted. Other ADD (attention
--- NOTE | 2022-10-24 17:23 | ECG_ITS ---
Measurements Intervals [place] Rate: 110 P: 31 CO: 133 QRS: 11 QRSD: 86 T: 16 QT: 295 QTc: 399 Interpretive Statements SINUS TACHYCARDIA NONSPECIFIC ST AND T WAVE ABNORMALITY ABNORMAL RHYTHM ECG COMPARED TO ECG 09/12/2022 20:41:15 NO SIGNIFICANT CHANGES Electronically Signed On 10-25-2022 10:58:11 CDT by Edward Piper M.D.
[2022-10-24 18:06] LABS: INR 1.4; Lactic Acid Reflex 3.6 mmol/L (0.7-2.0); Prothrombin Time 17.5 Seconds (11.1-14.7)
[2022-10-24 18:07] LABS: Partial Thromboplastin Time 32.3 SECONDS (22.3-36.8)
[2022-10-24 18:10] LABS: Ammonia < 9 umol/L (9-30)
[2022-10-24 18:10] LABS: Ethanol 37 mg/dL (<10)
--- NOTE | 2022-10-24 18:21 | PM.IMHP ---
H&P: HPI History of Present Illness Date/Time: 10/24/22 18:30 Chief Complaint: Abdominal pain. Narrative: This is a pleasant 52-year-old female with with history of alcohol abuse, diabetes, hypertension, and other comorbidities who presented to the emergency department via private vehicle from home for evaluation of abdominal pain. The patient provides the following history. Over the past week or so she has noticed swelling in her lower extremities and ever increasing distension of her abdomen. Her stomach is tight and she feels as though she is 9 months . She endorses a constant sharp and shooting pain diffusely throughout the abdomen without any significant aggravating or alleviating factors. She has also had some aching ?in my kidneys? associated with dysuria. She has been feeling a bit short of breath when lying flat due to the swelling in her stomach. Appetite has been poor for several days and she had nausea and vomiting last night. She made appoint with her doctor today and was directed to the emergency department after a CT of the abdomen pelvis showed cirrhosis with likely secondary moderate amount of ascites throughout the abdomen. She denies fever, chills, sweats, headache, neck ache, sinus congestion, sore throat, chest and pleuritic pain, hematemesis, melena, and hematochezia. She is being admitted in this setting for diagnostic paracentesis tomorrow. Review of Systems Review of Systems: Twelve systems were reviewed. She has had some nose bleeds the last couple of days. She endorses a mild, dry cough. No sick contacts. She denies ever having signs or symptoms of alcohol withdrawal. Except as documented all other systems were reviewed and are negative. [facility] Past Medical History Medical History (Updated 10/24/22 @ 23:03 by Luz Elena Samaneigo PA-C) Alcohol abuse Anxiety Cirrhosis Depression Emphysema lung Essential hypertension Fatty liver History of Helicobacter pylori infection Hyperlipidemia Irritable bowel syndrome with constipation Lung nodules Neuropathy Thrombocytopenia Tobacco abuse Vitamin D deficiency Surgical History Surgical History (Updated 10/24/22 @ 22:57 by Luz Elena Samaniego PA-C) History of section History of hysterectomy Family History Family History Father Hypertension Family history of throat cancer Family history of heart disease in male family member before age 55 Mother Cerebrovascular accident Grandparent Carcinoma of colon Sibling No problems noted. Other ADD (attention deficit disorder) Alcoholism Asthma COPD (chronic obstructive pulmonary disease) Cancer Glaucoma Heart disease Lung disease Osteoporosis Social History Social History (Updated 10/24/22 @ 22:57 by Luz Elena Samaniego PA-C) Social History: Surrogate medical decision maker: Delta Valenzuela, spouse. Code status: Full code. Smoking packs per day: 1 Smoking cigarettes per day: 20.0 Years smoked: 8 Smoking pack-years: 8.00 Smoking status: Former smoker Tobacco type: cigarettes and e-cigarettes/vaping Smokeless tobacco user: other Second hand tobacco smoke exposure: No Additional smoking assessment comments: vape Alcohol intake: current Drinks per week: 21 Alcohol use details: 4 to 5 oz of vodka each night. Substance use: never Substance use type: does not use Lack of Transportation: No Lack of Food: Never True Current Housing: I Have Housing Concerned About Future Housing: No Difficulty Paying Gas/Electric Bills: No Difficulty Paying for Meds: No Currently Unemployed: No Education: High School Diploma/GED Difficulty w/ Childcare or Family Care: No Living arrangements: with family Additional living arrangements comments: Lives with spouse Coreg in [place]. Occupation/Education: occupation Additional occupation/education comments: [employer]
[2022-10-24 18:35] LABS: Appearance Urine Turbid (Clear); Bacteria Urine 4+ /hpf; Bilirubin Urine Negative (Negative); Blood Urine 2+ (Negative); Color Urine Yellow (Yellow); Glucose Urine UA 2+ mg/dL (Negative); Ketones Urine Negative (Negative); Leukocyte Esterase Ur 3+ LEU/UL (Negative); Need Manual Microscopic Reviewed; Nitrate Urine Negative (Negative); Protein Urine 1+ mg/dL (Negative); RBC Urine 0-2 /hpf (0-2); Squamous Epithelial Cell Urine Moderate /hpf (Few); WBC Urine >100 /hpf; pH Urine 5.5 (5.0-9.0)
[2022-10-24] MEDS: cefTRIAXone 2 GM/NS 100 ML 2 GM/100 ML BAG IVPB (18:35)
[2022-10-24 18:36] LABS: Specific Grav Ur 1.053 (1.001-1.035)
[2022-10-24 18:50] LABS: Add Urine Microscopic? YES; Amphetamine Screen Urine Negative (Negative); Barbiturate Screen Urine Negative (Negative); Benzodiazepines Screen Urine Negative (Negative); Cannabinoid Screen Urine Negative (Negative); Cocaine Screen Urine Negative (Negative); Methadone Screen Urine Negative (Negative); Opiate Screen Urine Negative (Negative); Phencyclidine Screen Urine Negative (Negative)
[2022-10-24] MEDS: MORPHINE SULFATE (*CRX) 4 MG/ML INJ IV PUSH (18:59)
[2022-10-24] MEDS: ONDANSETRON INJ 4 MG/2 ML VIAL IV PUSH (18:59)
[2022-10-24 20:53] LABS: Reflex Lactic Acid Yes or No Add Lactic
[2022-10-24 21:47] LABS: Lactic Acid 3.3 mmol/L (0.7-2.0)
--- NOTE | 2022-10-24 22:23 | ADMGEN ---
This patient, Faiza Valenzuela, was admitted to [facility] Surg Room 316-02. Patient/family oriented to hospital policies and general routines including ID bracelet, bed and alarms, visiting hours, pain management, procedures, bathroom and other care routines, personal items, smoking policy, room service/diet, and visiting hours. Information on how to activate the Rapid Response Team has been discussed. Patient/Family are encouraged to report perceived risks to care and to ask questions if they do not understand what they are told or what they should do.
[2022-10-24] MEDS: MORPHINE SULFATE (*CRX) 2 MG/ML INJ IV PUSH (23:22)
[2022-10-25] VITALS (9 sets, daily range): BP systolic 102–110; BP diastolic 61–72; PULSE 85–103; RESP 14–16; TEMP 36.2–36.4; O2SAT 92–97; BMI 23.6
[2022-10-25] MEDS: ONDANSETRON INJ 4 MG/2 ML VIAL IV PUSH ×3 (00:05→21:48)
[2022-10-25 00:15] LABS: Hepatitis B Surface Antigen Negative (Negative)
[2022-10-25 00:21] LABS: HAV RESULT Negative (Negative); Hepatitis B Core IgM Result Negative (Negative)
[2022-10-25 00:33] LABS: Hepatitis C Virus Antibody Negative (Negative)
[2022-10-25 00:47] LABS: Immature Reticulocyte Fraction 16.7 % (3.0-15.9); Reticulocyte Hemoglobin Conten 41.4 pg (28.2-35.7); Reticulocyte Percent 7.35 % (0.7-4.3); Reticulocytes Absolute 0.17 M/mm3 (0.02-0.1)
[2022-10-25 01:09] LABS: Folic Acid 3.3 ng/mL (2.76->20)
[2022-10-25 01:32] LABS: Iron 61 ug/dL (37-170)
[2022-10-25 01:42] LABS: Percent Iron Saturation 34 % (20-50)
[2022-10-25 06:14] LABS: Hemoglobin A1C 8.5 % (<5.7)
[2022-10-25 06:54] LABS: Hematocrit 28.9 % (37.0-47.0); Hemoglobin 9.3 g/dL (12.0-15.0); Immature Platelet Fraction Pct 6.2 % (0.9-11.2); Mean Corpuscular HGB Conc 32.2 g/dl (32-36); Mean Corpuscular Hemoglobin 38.3 pg (26-34); Mean Corpuscular Volume 118.9 fl (80-100); Mean Platelet Volume 10.8 fl (7.4-10.4); Platelet Count Result 58 k/mm3 (150-375); Red Blood Count 2.43 M/mm3 (4.2-5.4); Red Cell Distribution Width 14.8 % (11.5-14.5); White Blood Count 6.1 K/mm3 (4.5-10.0)
[2022-10-25 06:56] LABS: INR 1.4; Prothrombin Time 17.7 Seconds (11.1-14.7)
[2022-10-25 06:57] LABS: Partial Thromboplastin Time 34.1 SECONDS (22.3-36.8)
[2022-10-25 07:02] LABS: Lactic Acid Reflex 1.7 mmol/L (0.7-2.0)
[2022-10-25 07:03] LABS: Alanine Aminotransferase 51 U/L (6-35); Albumin Level 2.6 g/dL (3.5-5.1); Alkaline Phosphatase 280 U/L (38-126); Anion Gap 2 mmol/L (8-16); Aspartate Amino Transferase 109 U/L (14-36); Bilirubin,Total 2.6 mg/dL (0.2-1.3); Blood Urea Nitrogen 4 mg/dL (7-17); CRP 1.7 mg/dL (<1.0); Calcium 7.8 mg/dL (8.4-10.2); Carbon Dioxide 36 mmol/L (22-30); Chloride 98 mmol/L (98-107); Estimated CRCL calculation 68 ml/min; Estimated Glomerular Filt Rate > 60; Glucose 178 mg/dL (65-110); Lipase 35 U/L (23-300); Magnesium 1.6 mg/dL (1.6-2.3); Potassium 3.7 mmol/L (3.4-5.0); Sodium 136 mmol/L (137-145)
[2022-10-25 08:16] LABS: Glucose Point of Care 180 mg/dl (65-105)
[2022-10-25] MEDS: FOLIC ACID 1 MG TABLET PO (09:11)
[2022-10-25] MEDS: THIAMINE HCL 100 MG TABLET PO (09:11)
[2022-10-25 11:42] LABS: Glucose Point of Care 183 mg/dl (65-105)
[2022-10-25 12:05] LABS: Appearance Peritoneal Fluid Clear (Clear); Color Peritoneal Fluid Yellow (Colorless); Nucleated Cells Peritoneal Flu 264 /uL (0-500); RBC Peritoneal Fluid < 2000 /uL (0-100000); Source Peritoneal Fluid Peritoneal Fluid
[2022-10-25 12:06] LABS: Lymphocytes Peritoneal Fluid 23 %; Macrophages Peritoneal Fluid 49 %; Neutrophils Peritoneal Fluid 28 % (0-25)
--- NOTE | 2022-10-25 15:25 | WPDGICN ---
Assessment and Plan Assessment and plan (1) Alcoholic cirrhosis of liver with ascites: Code(s): K70.31 - Alcoholic cirrhosis of liver with ascites Status: Acute Assessment and Plan: now complicated with ascites, better after paracentesis meld score 9 no evidence of SBP in fluid, ok to discontinue abx will start lasix and aldactone with 2g na diet, monitor renal function (2) Upper abdominal pain: Code(s): R10.10 - Upper abdominal pain, unspecified Status: Acute Assessment and Plan: better after paracentesis (3) Thrombocytopenia: Code(s): D69.6 - Thrombocytopenia, unspecified Status: Acute Assessment and Plan: from liver diseease, monitor (4) Elevated liver enzymes: Code(s): R74.8 - Abnormal levels of other serum enzymes Status: Acute (5) Type 2 diabetes mellitus: Qualifiers: Diabetes mellitus emt intermediate insulin use: without emt intermediate use Diabetes mellitus complication status: with hyperglycemia Qualified Code(s): E11.65 - Type 2 diabetes mellitus with hyperglycemia Code(s): E11.9 - Type 2 diabetes mellitus without complications Status: Acute GI Consult Note Consult date/time: 10/25/22 15:25 Reason for consult: ascites, cirrhosis HPI: Faiza Valenzuela is a 52 year old female with history of uncontrolled DM, alcohol abuse with cirrhosis. She had egd and colonoscopy 2019?- EGD was normal, only mild gastritis in biopsy, no celiac disease. Colonoscopy unremarkable. She came to ER with several days of progressive increase abdominal girth and abdominal discomfort. CT scan showed cirrhosis with ascites, she denies previous paracentesis. Today underwent 2.5 L removed and feels better, no evidence of SBP, she is not taking diuretics. Blood work showed platelets 58, creat 0.6, bili 2.6, ast/alt>1, inr 1.4 Review of Systems Constitutional: Constitutional: Denies chills Eyes: Eyes: Denies blurry vision ENT: Reports Normal hearing present Cardiovascular: Cardiovascular: Denies chest pain Respiratory: Respiratory: Denies cough Gastrointestinal: Gastrointestinal: Reports abdominal pain Genitourinary: Genitourinary: Denies urinary urgency Musculoskeletal: Musculoskeletal: Denies arthralgias Integumentary/Breasts: Skin/Breast: Denies rash Neurologic: Denies confusion Psychiatric: Psychiatric: Denies behavioral changes [facility] Past Medical History Medical History Alcohol abuse Anxiety Cirrhosis Depression Emphysema lung Essential hypertension Fatty liver History of Helicobacter pylori infection Hyperlipidemia Irritable bowel syndrome with constipation Lung nodules Neuropathy Thrombocytopenia Tobacco abuse Vitamin D deficiency Surgical History Surgical History History of section History of hysterectomy Family History Family History Father Hypertension Family history of throat cancer Family history of heart disease in male family member before age 55 Mother Cerebrovascular accident Grandparent Carcinoma of colon Sibling No problems noted. Other ADD (attention deficit disorder) Alcoholism Asthma COPD (chronic obstructive pulmonary disease) Cancer Glaucoma Heart disease Lung disease Osteoporosis Social History Social History Social History: Surrogate medical decision maker: Delta Valenzuela, spouse. Code status: Full code. Smoking packs per day: 1 Smoking cigarettes per day: 20.0 Years smoked: 8 Smoking pack-years: 8.00 Smoking status: Former smoker Tobacco type: cigarettes and e-cigarettes/vaping Smokeless tobacco user: other Second hand tobacco smoke exposure: No Additional smoking assessment comments: esvin Pacheco
--- NOTE | 2022-10-25 15:59 | PM.IMPN ---
Progress Note: A&P Assessment and Plan (1) Cirrhosis of liver with ascites: Code(s): K74.60 - Unspecified cirrhosis of liver; R18.8 - Other ascites Status: Acute Assessment and Plan: The patient has developed ascites and abdominal pain over the past week or so. Pain more of discomfort from the abdomnial distention. The cirrhosis felt related to alcoholism. -CT A/P: cirrhosis, ascites, PV HTN with collaterals, splenomegaly, cortical renal scarring, possible UTI -Paracentesis: RBC<2K, WBC 264 wiht 28% neutrophils and 49% macrophages. Gram stain and cultures pending. Started on empiric ceftriaxone for possible SBP. -GI consulted and apprecaite their input. -AST 143 and ALT 63 but levels trending down. -AP 376 ->280. TBili 1.9 and climbing to 2.6 today -INR 1.4 with PT 17.7. Ammonia <9 Educated about the benefits of abstaining from alcohol. Check Echo (2) Macrocytic anemia: Code(s): D53.9 - Nutritional anemia, unspecified Status: Acute Assessment and Plan: Hgb was normal last year but was 11.8 in May and 9.7 in August. hgb 10.7 on admission alexandr with a macrocytosis. -Iron studies showing normal Iron and Saturation and low TIBC consistent with liver disease and anemia of chronic disease -B12 and Folate normal. -Follow HH (3) Elevated lactic acid level: Code(s): R79.89 - Other specified abnormal findings of blood chemistry Status: Acute Assessment and Plan: lactic acid to 3.6 before normalizing. May be related to decreased hepatic clearance however sepsis is a consideration as she has evidence of UTI and she is also tachycardic. White blood cell count is normal. Continue ceftriaxone pending blood, urine, and peritoneal fluid cultures. (4) UTI (urinary tract infection): Qualifiers: Hematuria presence: without hematuria Urinary tract infection type: acute cystitis Qualified Code(s): N30.00 - Acute cystitis without hematuria Code(s): N39.0 - Urinary tract infection, site not specified Status: Acute Assessment and Plan: UA noted. Rocephin started after cultures obtained. Follow up on UCx and BCx. (5) Type 2 diabetes mellitus: Qualifiers: Diabetes mellitus complication status: with hyperglycemia Diabetes mellitus retirement insulin use: without retirement use Qualified Code(s): E11.65 - Type 2 diabetes mellitus with hyperglycemia Code(s): E11.9 - Type 2 diabetes mellitus without complications Status: Acute Assessment and Plan: A1c 8.5. The patient's blood glucose was reviewed on 10/25 Glucose remains reasonably well controlled. Continue AccuCheks covering with sliding scale. Hypoglycemia protocol available as needed. Continue to monitor (6) Thrombocytopenia: Code(s): D69.6 - Thrombocytopenia, unspecified Status: Acute Assessment and Plan: Related to underlying liver disease and splenomegaly. Follow (7) Alcohol abuse: Code(s): F10.10 - Alcohol abuse, uncomplicated Status: Acute Assessment and Plan: Longstanding history of alcohol abuse. She drinks about 5 shots of vodka at night. She denies ever having signs or symptoms of alcohol withdrawal. Continue CIWA protocol. Score running at 2. Continue thiamine and folate supplementation. Ativan available for s/sx of withdrawal. Educated about the benefits of abstaining from alcohol. (8) Tachycardia: Code(s): R00.0 - Tachycardia, unspecified Status: Resolved Assessment and Plan: She has been mildly tachycardic in the low 100s. Sepsis is a consideration as detailed above. She does not appear to be in alcohol withdrawal. Pulmonary embolism is a possibility. Lower extremity venous Doppler negative for DVT. TSH normal. HR better. Will follow for now. Plan Resume Gabapentin since can cause withdrawal seizures if stopped abruptly. Contraindication for Nusrat is alcohol abuse. Consider weaning
[2022-10-25 16:58] LABS: Glucose Point of Care 216 mg/dl (65-105)
[2022-10-25] MEDS: GABAPENTIN 300 MG CAPSULE 900 MG BY MOUTH (17:16)
[2022-10-25] MEDS: MORPHINE SULFATE (*CRX) 2 MG/ML INJ IV PUSH ×2 (17:18→21:47)
[2022-10-25] MEDS: INSULIN ASPART (*BKC) 100 UNITS/ML SUB-Q (17:24)
[2022-10-25] MEDS: cefTRIAXone 2 GM/NS 100 ML 2 GM/100 ML BAG IVPB (17:36)
[2022-10-25 20:43] LABS: Glucose Point of Care 172 mg/dl (65-105)
[2022-10-26] VITALS (8 sets, daily range): BP systolic 94–98; BP diastolic 57–68; PULSE 84–103; RESP 14–20; TEMP 36.1–36.4; O2SAT 91–96
--- NOTE | 2022-10-26 | ECHO_ITS ---
Patient Info Name: Faiza Valenzuela Age: 52 years : 1970 Gender: Female Ht: 60 in Wt: 121 lbs BSA: 1.53 m2 HR: 96 bpm BP: 97 / 57 mmHg Heart Rhythm: Tachycardia Technical Quality: Good Exam Date: 10/26/2022 8:02 AM Exam Location: [facility] Pulmonary Exam Room: [facility] Patient Status: Outpatient Admit Date: 10/24/2022 Staff Ordering Physician: Oswaldo Rodriguez MD Burn Out Tender Lace: Zayra Mabry RDCS Attending Provider: Penny Weber MD Exam Type: CA echo doppler color flow Study Info Indications - CIRROHOSIS Complete two-dimensional, color flow and Doppler transthoracic echocardiogram is performed. Summary 1. Complete two-dimensional, color flow and Doppler transthoracic echocardiogram is performed. 2. Left ventricular chamber dimension is normal. 3. Left ventricular systolic function is normal, estimated at 65-70%. 4. The left ventricular diastolic function is grade I diastolic dysfunction. 5. Right ventricular systolic function is normal. 6. There is mild tricuspid valve regurgitation. Left Ventricle Left ventricular chamber dimension is normal. Left ventricular systolic function is normal, estimated at 65-70%. There is no increased left ventricular wall thickness. The left ventricular diastolic function is grade I diastolic dysfunction. Right Ventricle Right ventricular chamber dimension is normal. Right ventricular systolic function is normal. Left Atria Left atrial chamber dimension is normal. Right Atria Right atrial chamber dimension is normal. Atrial Septum Intact interatrial septum visualized by color flow imaging. Aortic Valve The aortic valve is trileaflet. There is no aortic valve stenosis. There is no aortic valve regurgitation. Pulmonic Valve The pulmonic valve is not well visualized. Mitral Valve There is trace mitral valve regurgitation. Tricuspid Valve There is mild tricuspid valve regurgitation. Pericardium/Pleural There is no pericardial effusion. Inferior Vena Cava Inferior vena cava is not well visualized. Aorta The aortic root size at the sinus of Valsalva is normal. Left Ventricular Outflow Tract Name Value Normal LVOT 2D LVOT Diameter 2.0 cm LVOT Doppler LVOT Peak Gradient 4 mmHg LVOT Mean Gradient 2 mmHg LVOT VTI 20 cm LVOT VTI/AV VTI Ratio 0.9 LVOT Stroke Volume 59 ml LVOT CO 13.0 l/min LVOT CI 8.4 l/min/m2 Pulmonic Valve Name Value Normal RVOT Doppler RVOT Peak Gradient 1 mmHg PV Doppler PV Peak Gradient 3 mmHg Mitral Valve Name Value Normal
[2022-10-26] MEDS: MORPHINE SULFATE (*CRX) 2 MG/ML INJ IV PUSH ×3 (01:50→12:31)
[2022-10-26] MEDS: ONDANSETRON INJ 4 MG/2 ML VIAL IV PUSH ×3 (01:50→12:31)
[2022-10-26 07:15] LABS: Basophils Percent Auto 0.4 % (0.2-1.2); Eosinophils Absolute Auto 0.1 K/mm3 (0-0.3); Eosinophils Percent Auto 1.3 % (0-4.4); Hematocrit 27.5 % (37.0-47.0); Hemoglobin 8.8 g/dL (12.0-15.0); Immature Granulocyte Absolute 0.01 K/mm3 (0.00-0.031); Immature Granulocyte Percent A 0.2 % (0-0.5); Lymphocytes Absolute Auto 1.22 K/mm3 (0.9-3.2); Lymphocytes Percent Auto 26.2 % (18.3-44.2); Mean Corpuscular Hemoglobin 38.4 pg (26-34); Mean Corpuscular Volume 120.1 fl (80-100); Mean Platelet Volume 11.4 fl (7.4-10.4); Monocytes Absolute Auto 0.3 K/mm3 (0.1-0.6); Monocytes Percent Auto 6.9 % (2.6-8.5); Platelet Count Result 50 k/mm3 (150-375); Red Blood Count 2.29 M/mm3 (4.2-5.4); Red Cell Distribution Width 14.6 % (11.5-14.5); White Blood Count 4.7 K/mm3 (4.5-10.0)
[2022-10-26 07:24] LABS: Alanine Aminotransferase 43 U/L (6-35); Albumin Level 2.3 g/dL (3.5-5.1); Alkaline Phosphatase 217 U/L (38-126); Anion Gap 0 mmol/L (8-16); Aspartate Amino Transferase 95 U/L (14-36); Bilirubin,Total 3.4 mg/dL (0.2-1.3); Blood Urea Nitrogen 4 mg/dL (7-17); Calcium 7.5 mg/dL (8.4-10.2); Carbon Dioxide 33 mmol/L (22-30); Chloride 100 mmol/L (98-107); Estimated CRCL calculation 60 ml/min; Estimated Glomerular Filt Rate > 60; Glucose 127 mg/dL (65-110); Magnesium 1.7 mg/dL (1.6-2.3); Phosphorus 3.4 mg/dL (2.5-4.5); Potassium 3.5 mmol/L (3.4-5.0); Sodium 133 mmol/L (137-145)
--- NOTE | 2022-10-26 09:10 | WPDGIPROGNO ---
Progress Note: A&P Assessment and Plan (1) Alcoholic cirrhosis of liver with ascites: Code(s): K70.31 - Alcoholic cirrhosis of liver with ascites Status: Acute Assessment and Plan: Patient with cirrhosis on the basis of alcoholism. Patient will need to avoid alcohol. Now status post paracentesis. No evidence for SBP. Continue low-salt diet. Diurese with Aldactone and Lasix. Electrolytes will need to be monitored. Patient follows with Dr. Trinh in the office on the outpatient setting. Suggest increasing activity. Follow-up in GI office after discharge. Macrocytosis is on the basis of alcoholic liver disease as is thrombocytopenia and anemia. Suggest patient weigh self daily and keep monitor to assist with adjusting diuretics. (2) Type 2 diabetes mellitus: Qualifiers: Diabetes mellitus buttermaker insulin use: without senior living use Diabetes mellitus complication status: with hyperglycemia Qualified Code(s): E11.65 - Type 2 diabetes mellitus with hyperglycemia Code(s): E11.9 - Type 2 diabetes mellitus without complications Status: Acute Subjective Date/time seen: 10/26/22 09:10 Interval history: Patient is seen today in the absence of Dr. Trinh. Patient alert comfortable. Tolerating low-salt diet without difficulty. Notes much more comfortable abdomen today. After paracentesis yesterday. No fevers evident. Review of Systems Review of Systems: Review of systems noncontributory. Exam Narrative: Physical exam reveals patient be alert. Vital signs stable. HEENT exam reveals no icterus. Lungs are clear. Heart without murmur. Abdomen bowel sounds are present soft only modest abdominal distention present after paracentesis. Objective Data Vital Signs Vital Signs: Vital Signs - 24 hr 10/25/22 14:00 10/25/22 12:00 10/25/22 16:00 Temperature 97.5 F L Pulse Rate 96 Respiratory Rate 16 Blood Pressure 107/61 107/61 107/61 Pulse Oximetry 97 10/25/22 12:00 10/25/22 16:00 10/25/22 21:13 Temperature 97.2 F L Pulse Rate 101 H 95 85 Respiratory Rate 16 Blood Pressure 102/67 Pulse Oximetry 92 10/25/22 20:00 10/26/22 00:00 10/26/22 04:00 Temperature Pulse Rate 90 90 89 Respiratory Rate Blood Pressure Pulse Oximetry 10/26/22 05:55 Temperature 97.6 F Pulse Rate 87 Respiratory Rate 16 Blood Pressure 97/57 L Pulse Oximetry 91 Intake/Output Intake/Output: Intake & Output 10/23/22 10/24/22 10/25/22 10/26/22 23:59 23:59 23:59 23:59 Intake Total 100 650 400 Output Total 2100 Balance 100 -1450 400 Meds/Results Medications: Active Medications Generic Name Dose Route Start Last Admin Trade Name Freq PRN Reason Stop Dose Admin Dextrose 12.5 gm 10/24/22 23:10 Dextrose 50% 25 Gm/50 Ml Syringe IV PUSH PRN PRN Hypoglycemia Protocol Folic Acid 1 mg 10/25/22 09:00 10/25/22 09:11 Folic Acid 1 Mg Tablet PO 1 mg DAILY ANA Administration Furosemide 40 mg 10/26/22 09:00 Furosemide 40 Mg Tablet PO DAILY ANA Gabapentin 900 mg 10/25/22 17:00 10/25/22 17:16 Gabapentin 300 Mg Capsule BY MOUTH 900 mg TID ANA Administration Glucagon 1 mg 10/24/22 23:10 Glucagon For Inj 1 Mg Vial IM PRN PRN Hypoglycemia Protocol Glucose 15 gm 10/24/22 23:10 Glucose Oral Gel 15 Gm Of Glucse In 37.5 Gm Tube PO PRN PRN Hypoglycemia Protocol Dextrose 1,000 mls @ 100 mls/hr 10/24/22 23:10 Dextrose 5% 1,000 Ml IVPB PRN PRN Hypoglycemia Protocol Ceftriaxone Sodium 2 gm in 100 mls @ 200 mls/hr 10/25/22 18:00 10/25/22 17:36 Rocephin 2 Gm/Ns 100 Ml IVPB 200 mls/hr Q24H ANA Administration Insulin Aspart 2 - 5 units 10/25/22 08:00 10/25/22 17:24 Insulin Aspart (*Bkc) 100 Units/Ml SUB-Q 2 units TIDWM ANA Administration Protocol Lorazepam 2 mg 10/24/22 23:11 Lorazepam Inj (*Crx)
[2022-10-26] MEDS: SPIRONOLACTONE 50 MG TABLET 100 MG PO (10:00)
[2022-10-26] MEDS: THIAMINE HCL 100 MG TABLET PO (10:11)
[2022-10-26] MEDS: GABAPENTIN 300 MG CAPSULE 900 MG BY MOUTH ×2 (10:12→18:49)
[2022-10-26] MEDS: FOLIC ACID 1 MG TABLET PO (10:12)
[2022-10-26] MEDS: FUROSEMIDE 40 MG TABLET PO (10:12)
--- NOTE | 2022-10-26 10:20 | PC.NURSE ---
Dr. Rodriguez notified that patient is refusing morning meds and is having continued nausea despite ondansetron at 0755. states he will put in an order for Phenergan.
[2022-10-26] MEDS: PROMETHAZINE HCL 25 MG TABLET PO ×2 (10:52→18:48)
[2022-10-26 11:38] LABS: Glucose Point of Care 219 mg/dl (65-105)
[2022-10-26 11:38] LABS: Glucose Point of Care 144 mg/dl (65-105)
[2022-10-26] MEDS: INSULIN ASPART (*BKC) 100 UNITS/ML SUB-Q (12:31)
--- NOTE | 2022-10-26 13:08 | PM.IMPN ---
Progress Note: A&P Assessment and Plan (1) Cirrhosis of liver with ascites: Code(s): K74.60 - Unspecified cirrhosis of liver; R18.8 - Other ascites Status: Acute Assessment and Plan: The patient has developed ascites and abdominal pain over the past week or so. Pain more of discomfort from the abdomnial distention. The cirrhosis felt related to alcoholism. -CT A/P: cirrhosis, ascites, PV HTN with collaterals, splenomegaly, cortical renal scarring, possible UTI -Paracentesis: RBC<2K, WBC 264 wiht 28% neutrophils and 49% macrophages. Gram stain and cultures pending. Started on empiric ceftriaxone for possible SBP. -GI consulted and apprecaite their input. -AST 143 and ALT 63 but levels trending down. -AP 376 ->280. TBili 1.9 and climbing to 2.6 today -INR 1.4 with PT 17.7. Ammonia <9 -Echo showing EF 65-70% with Grade I diastolic dysfunction. Educated about the benefits of abstaining from alcohol. (2) Macrocytic anemia: Code(s): D53.9 - Nutritional anemia, unspecified Status: Acute Assessment and Plan: Hgb was normal last year but was 11.8 in May and 9.7 in August. hgb 10.7 on admission here with a macrocytosis. -Iron studies showing normal Iron and Saturation and low TIBC consistent with liver disease and anemia of chronic disease -B12 and Folate normal. -Hgb dropped to 8.8 today. Follow HH (3) UTI (urinary tract infection): Qualifiers: Hematuria presence: without hematuria Urinary tract infection type: acute cystitis Qualified Code(s): N30.00 - Acute cystitis without hematuria Code(s): N39.0 - Urinary tract infection, site not specified Status: Acute Assessment and Plan: UA noted. Rocephin started after cultures obtained. BCx NGTD. UCx negative but UCx drawn earlier on the day of admission growing EColi sensitive to Rocephin. Continue the same until paracentesis culutres negative at which point will de-escalate abx. (4) Elevated lactic acid level: Code(s): R79.89 - Other specified abnormal findings of blood chemistry Status: Acute Assessment and Plan: lactic acid to 3.6 before normalizing. May be related to decreased hepatic clearance however sepsis is a consideration as she has evidence of UTI and she is also tachycardic. White blood cell count remains normal. As above. (5) Type 2 diabetes mellitus: Qualifiers: Diabetes mellitus terminal system operator insulin use: without intermediate use Diabetes mellitus complication status: with hyperglycemia Qualified Code(s): E11.65 - Type 2 diabetes mellitus with hyperglycemia Code(s): E11.9 - Type 2 diabetes mellitus without complications Status: Acute Assessment and Plan: A1c 8.5. The patient's blood glucose was reviewed on 10/26 Glucose remains reasonably well controlled. Continue AccuCheks covering with sliding scale. Hypoglycemia protocol available as needed. Continue to monitor (6) Thrombocytopenia: Code(s): D69.6 - Thrombocytopenia, unspecified Status: Acute Assessment and Plan: Related to underlying liver disease and splenomegaly. Follow (7) Alcohol abuse: Code(s): F10.10 - Alcohol abuse, uncomplicated Status: Acute Assessment and Plan: Longstanding history of alcohol abuse. She drinks about 5 shots of vodka at night. She denies ever having signs or symptoms of alcohol withdrawal. Continue CIWA protocol. Score running at 1-3 but is having nausea. Continue thiamine and folate supplementation. Ativan available for s/sx of withdrawal. Educated about the benefits of abstaining from alcohol. (8) Tachycardia: Code(s): R00.0 - Tachycardia, unspecified Status: Resolved Assessment and Plan: She has been mildly tachycardic in the low 100s. Sepsis is a consideration as detailed above related to UTI. She does not appear to be in alcohol withdrawal. Pulmonary embolism is a possibility but felt less li
[2022-10-26 16:46] LABS: Glucose Point of Care 124 mg/dl (65-105)
[2022-10-26] MEDS: cefTRIAXone 2 GM/NS 100 ML 2 GM/100 ML BAG IVPB (18:49)
[2022-10-26 20:49] LABS: Glucose Point of Care 161 mg/dl (65-105)
[2022-10-27 04:00] VITALS: PULSE 72
[2022-10-27 05:32] VITALS: BP 101/72; PULSE 91; RESP 16; TEMP 36.6; O2SAT 96
[2022-10-27 05:43] LABS: Basophils Percent Auto 0.4 % (0.2-1.2); Eosinophils Percent Auto 0.9 % (0-4.4); Hematocrit 27.1 % (37.0-47.0); Hemoglobin 8.7 g/dL (12.0-15.0); Immature Granulocyte Absolute 0.02 K/mm3 (0.00-0.031); Immature Granulocyte Percent A 0.4 % (0-0.5); Immature Platelet Fraction Pct 6.1 % (0.9-11.2); Lymphocytes Absolute Auto 1.41 K/mm3 (0.9-3.2); Lymphocytes Percent Auto 30.7 % (18.3-44.2); Mean Corpuscular HGB Conc 32.1 g/dl (32-36); Mean Corpuscular Hemoglobin 37.5 pg (26-34); Mean Corpuscular Volume 116.8 fl (80-100); Mean Platelet Volume 11.2 fl (7.4-10.4); Monocytes Absolute Auto 0.3 K/mm3 (0.1-0.6); Monocytes Percent Auto 7.4 % (2.6-8.5); Neutrophils Absolute Auto 2.8 K/mm3 (1.3-6.7); Neutrophils Percent Auto 60.2 % (45.5-73.1); Platelet Count Result 60 k/mm3 (150-375); Red Blood Count 2.32 M/mm3 (4.2-5.4); Red Cell Distribution Width 14.5 % (11.5-14.5); White Blood Count 4.6 K/mm3 (4.5-10.0)
[2022-10-27 05:53] LABS: Alanine Aminotransferase 40 U/L (6-35); Albumin Level 2.4 g/dL (3.5-5.1); Alkaline Phosphatase 199 U/L (38-126); Anion Gap 4 mmol/L (8-16); Aspartate Amino Transferase 92 U/L (14-36); Bilirubin,Total 2.5 mg/dL (0.2-1.3); Blood Urea Nitrogen 6 mg/dL (7-17); Calcium 7.7 mg/dL (8.4-10.2); Carbon Dioxide 35 mmol/L (22-30); Chloride 96 mmol/L (98-107); Estimated CRCL calculation 60 ml/min; Estimated Glomerular Filt Rate > 60; Glucose 134 mg/dL (65-110); Magnesium 1.5 mg/dL (1.6-2.3); Phosphorus 3.7 mg/dL (2.5-4.5); Potassium 3.4 mmol/L (3.4-5.0); Sodium 135 mmol/L (137-145)
[2022-10-27 07:41] LABS: Glucose Point of Care 158 mg/dl (65-105)
[2022-10-27 08:56] VITALS: BP 107/84
[2022-10-27] MEDS: GABAPENTIN 300 MG CAPSULE 900 MG BY MOUTH ×2 (09:01→12:41)
[2022-10-27] MEDS: FUROSEMIDE 40 MG TABLET PO (09:02)
[2022-10-27] MEDS: MAGNESIUM SULF 2 GM/WATER 50ML 2 GM/50 ML BAG IVPB (09:02)
[2022-10-27] MEDS: POTASSIUM CHLORIDE 20 MEQ PACKET (FOR LIQUID) 40 MEQ PO (09:41)
[2022-10-27] MEDS: THIAMINE HCL 100 MG TABLET PO (09:42)
[2022-10-27] MEDS: FOLIC ACID 1 MG TABLET PO (09:42)
--- NOTE | 2022-10-27 10:11 | WPDGIPROGNO ---
Progress Note: A&P Assessment and Plan (1) Cirrhosis of liver with ascites: Code(s): K74.60 - Unspecified cirrhosis of liver; R18.8 - Other ascites Status: Acute Assessment and Plan: Patient with alcoholic cirrhosis of the liver. She does have ascites which has improved after paracentesis. Plan to maintain on laxatives, Aldactone and Lasix after discharge. She will need to monitor weights daily and keep a list. Low-salt diet encouraged. Intermittent lab testing to evaluate electrolytes and potassium. She has followed with Dr. Richy De La Cruz in the office in should follow up with him after discharge. Okay with GI service for discharge this time. (2) Macrocytic anemia: Code(s): D53.9 - Nutritional anemia, unspecified Status: Acute Assessment and Plan: Macrocytic anemia related to alcoholic liver disease. Subjective Date/time seen: 10/27/22 10:11 Interval history: Patient is seen today in the absence of Dr. Trinh. She reports being comfortable at rest. No more nausea. Tolerating diet without difficulty. Quite pleased with decreased distention in her abdomen. Review of Systems Review of Systems: Review of systems noncontributory. Exam Narrative: Physical exam reveals patient to be alert. Vital signs stable. HEENT exam unremarkable. Lungs are clear. Heart without murmur. Abdomen bowel sounds are present soft only modest distention. No tenderness. No organomegaly. Objective Data Vital Signs Vital Signs: Vital Signs - 24 hr 10/26/22 14:00 10/26/22 12:00 10/26/22 16:00 Temperature 97.0 F L Pulse Rate 103 H 87 84 Respiratory Rate 20 Blood Pressure 94/62 L Pulse Oximetry 96 Oxygen Delivery 10/26/22 21:28 10/26/22 20:00 10/27/22 05:32 Temperature 97.1 F L 97.8 F Pulse Rate 100 91 Respiratory Rate 14 16 Blood Pressure 98/68 L 101/72 Pulse Oximetry 93 96 Oxygen Delivery Room Air 10/27/22 04:00 Temperature Pulse Rate 72 Respiratory Rate Blood Pressure Pulse Oximetry Oxygen Delivery Intake/Output Intake/Output: Intake & Output 10/24/22 10/25/22 10/26/22 10/27/22 23:59 23:59 23:59 23:59 Intake Total 900 915 2887 350 Output Total 2100 Balance 100 -1350 2374 350 Meds/Results Medications: Active Medications Generic Name Dose Route Start Last Admin Trade Name Freq PRN Reason Stop Dose Admin Dextrose 12.5 gm 10/24/22 23:10 Dextrose 50% 25 Gm/50 Ml Syringe IV PUSH PRN PRN Hypoglycemia Protocol Folic Acid 1 mg 10/25/22 09:00 10/27/22 09:42 Folic Acid 1 Mg Tablet PO 1 mg DAILY ANA Administration Furosemide 40 mg 10/26/22 09:00 10/27/22 09:02 Furosemide 40 Mg Tablet PO 40 mg DAILY ANA Administration Gabapentin 900 mg 10/25/22 17:00 10/27/22 09:01 Gabapentin 300 Mg Capsule BY MOUTH 900 mg TID ANA Administration Glucagon 1 mg 10/24/22 23:10 Glucagon For Inj 1 Mg Vial IM PRN PRN Hypoglycemia Protocol Glucose 15 gm 10/24/22 23:10 Glucose Oral Gel 15 Gm Of Glucse In 37.5 Gm Tube PO PRN PRN Hypoglycemia Protocol Dextrose 1,000 mls @ 100 mls/hr 10/24/22 23:10 Dextrose 5% 1,000 Ml IVPB PRN PRN Hypoglycemia Protocol Ceftriaxone Sodium 2 gm in 100 mls @ 200 mls/hr 10/25/22 18:00 10/26/22 19:19 Rocephin 2 Gm/Ns 100 Ml IVPB Infused Q24H ANA Infusion Insulin Aspart 2 - 5 units 10/25/22 08:00 10/27/22 09:03 Insulin Aspart (*Bkc) 100 Units/Ml SUB-Q Not Given TIDWM [facility] Protocol Lorazepam 1 mg 10/26/22 13:19 Lorazepam Inj (*Crx) 2 Mg/Ml Vial IV PUSH Q4H PRN CIWA > 8 Morphine Sulfate 2 mg 10/24/22 23:10 10/26/22 12:31 Morphine Sulfate (*Crx) 2 Mg/Ml Inj IV PUSH 2 mg Q4H PRN Administration Pain Rated 7-10 Ondansetron HCl 4 mg 10/24/22 23:35 10/26/22 12:31 Ondansetron Inj 4 Mg/2 Ml Vial IV PUSH 4 mg Q4H PRN Administr
[2022-10-27] MEDS: SPIRONOLACTONE 50 MG TABLET 100 MG PO (11:35)
[2022-10-27 11:41] LABS: Glucose Point of Care 229 mg/dl (65-105)
[2022-10-27 12:00] VITALS: BP 107/70
[2022-10-27] MEDS: INSULIN ASPART (*BKC) 100 UNITS/ML SUB-Q (12:42)
--- NOTE | 2022-10-27 13:23 | PM.DS ---
DS: Admitting Diagnosis Discharge Date 10/27/22 Admitting Diagnosis Abdominal pain and distention DS: Discharge Diagnosis Discharge Diagnosis (1) Cirrhosis of liver with ascites: Code(s): K74.60 - Unspecified cirrhosis of liver; R18.8 - Other ascites Status: Acute (2) Macrocytic anemia: Code(s): D53.9 - Nutritional anemia, unspecified Status: Acute (3) UTI (urinary tract infection): Qualifiers: Hematuria presence: without hematuria Urinary tract infection type: acute cystitis Qualified Code(s): N30.00 - Acute cystitis without hematuria Code(s): N39.0 - Urinary tract infection, site not specified Status: Acute (4) Elevated lactic acid level: Code(s): R79.89 - Other specified abnormal findings of blood chemistry Status: Acute (5) Type 2 diabetes mellitus: Qualifiers: Diabetes mellitus prison insulin use: without prison use Diabetes mellitus complication status: with hyperglycemia Qualified Code(s): E11.65 - Type 2 diabetes mellitus with hyperglycemia Code(s): E11.9 - Type 2 diabetes mellitus without complications Status: Acute (6) Thrombocytopenia: Code(s): D69.6 - Thrombocytopenia, unspecified Status: Acute (7) Alcohol abuse: Code(s): F10.10 - Alcohol abuse, uncomplicated Status: Acute (8) Tachycardia: Code(s): R00.0 - Tachycardia, unspecified Status: Resolved DS: Summary Hospital Course Reason for hospitalization: 52yo female with HTN, alcohol abuse, cirrhosis and thrombocytopenia here for abdominal pain. Please see H&P for details. Hospital Course: The patient has developed ascites and abdominal pain over the past week prior to admission. Pain was more of discomfort from the abdominal distention. She has known cirrhosis felt related to alcoholism. CT A/P: showed cirrhosis, ascites, PV HTN with collaterals, splenomegaly, and cortical renal scarring. Paracentesis performed: RBC<2K, WBC 264 with 28% neutrophils and 49% macrophages. Gram stain was negative for microorganisms or for WBC. Ascitic fluid cultures were negative to date. She was started on empiric ceftriaxone for possible SBP and for possible UTI but not felt to have either. GI was consulted and we appreciate their input. AST 143 and ALT 63 but levels were trending down. AP 376 ->199. TBili 1.9 and climbing to 2.6 before trending back down. INR 1.4 with PT 17.7. Ammonia <9. Echo showing EF 65-70% with Grade I diastolic dysfunction. Hgb was normal last year but was 11.8 in May and 9.7 in August. Hgb 10.7 on admission here with a macrocytosis. Iron studies showing normal Iron and Saturation and low TIBC consistent with liver disease and anemia of chronic disease. B12 and Folate normal. Hgb dropped to 8 range but remained stable. UA noted. Rocephin started after cultures obtained. BCx NGTD. UCx negative but UCx drawn earlier on the day of admission growing EColi sensitive to Rocephin. Lactic acid to 3.6 before normalizing. May be related to decreased hepatic clearance; felt sepsis was unlikely. A1c 8.5. The patient's blood glucose was monitored with AccuCheks covering with sliding scale.? Hypoglycemia protocol was available as needed.? Thrombocytopenia felt related to underlying liver disease and splenomegaly. Platelet count remained stable. She has a longstanding history of alcohol abuse. She was monitored using [facility] protocol for signs or symptoms of alcohol withdrawal but none noted. She was treated with thiamine and folate supplementation. She was educated about the benefits of abstaining from alcohol. She has been mildly tachycardic in the low 100s. Lower extremity venous Doppler negative for DVT. TSH was normal. HR better. She overall did well and was able to be discharged home on 10/27/22. Status at Discharge Cognitive/behavioral status at discharge: Stable Time Spent with Patient Time attestation: Total time spent providing
[2022-10-27 14:00] VITALS: BP 101/61; PULSE 101; RESP 20; TEMP 36.4; O2SAT 98
[2022-10-29 17:57] LABS: Amylase Peritoneal Fluid <10 U/L
[2022-10-29 20:32] LABS: Glucose Peritoneal Fluid 193 mg/dL; LDH Peritoneal Fluid 38 U/L (<63); Total Protein Peritoneal Fluid <3.0 g/dL
--- NOTE | 2022-10-30 09:28 | PC.NURSE ---
peritoneal fluid- amylase,glucose,LDH, TP all WNL. Blood cx are negative. Pathology- Benign. Reactive mesothelial cells, histocytes and lymphocytes. Dr. Jennifer borjas.
[2022-10-30 14:02] LABS: Albumin Peritoneal Fluid 0.4 g/dL
--- NOTE | 2022-11-01 11:39 | PC.NURSE ---
Ascites fluid cx is negative.
== END 2022-10-27 14:35 | disposition home or self-care (01) ==
LOC: ANHED 18:57 → ANH3MEDSUR 10-25 08:27
PROVIDERS: Physician Assistant; Admitting Provider Internal Medicine; Emergency Provider Physician Assistant; PCP Family Medicine; Visit Provider Internal Medicine
DX: K74.60 Unspecified cirrhosis of liver (principal); R18.8 Other ascites; K76.6 Portal hypertension; K76.0 Fatty (change of) liver, not elsewhere classified; F41.9 Anxiety disorder, unspecified; D53.9 Nutritional anemia, unspecified; E11.65 Type 2 diabetes mellitus with hyperglycemia; F32.A Depression, unspecified; D69.6 Thrombocytopenia, unspecified; J43.9 Emphysema, unspecified; R94.31 Abnormal electrocardiogram [ECG] [EKG]; R00.0 Tachycardia, unspecified; I11.9 Hypertensive heart disease without heart failure; N30.00 Acute cystitis without hematuria; I07.9 Rheumatic tricuspid valve disease, unspecified; R79.89 Other specified abnormal findings of blood chemistry; R74.8 Abnormal levels of other serum enzymes; E78.5 Hyperlipidemia, unspecified; K58.1 Irritable bowel syndrome with constipation; G62.9 Polyneuropathy, unspecified; F10.20 Alcohol dependence, uncomplicated; Z87.891 Personal history of nicotine dependence; Y90.1 Blood alcohol level of 20-39 mg/100 ml; Z82.49 Family history of ischemic heart disease and other diseases of the circulatory system; Z81.1 Family history of alcohol abuse and dependence; Z82.5 Family history of asthma and other chronic lower respiratory diseases; Z84.89 Family history of other specified conditions
CPT/HCPCS: 36415; 49083; 80053; 80074; 80307; 81001; 82042; 82140; 82150; 82607; 82728; 82746; 82945; 82948; 83036; 83540; 83550; 83605; 83615; 83690; 83735; 84100; 84157; 84443; 85025; 85027; 85046; 85055; 85610; 85730; 86140; 87040; 87070; 87075; 87086; 87088; 87205; 88108; 88305; 89051; 93005; 93306; 93970; 96365; 96366; 96375; 96376; 99285; A9270; G0378; J0696; J1815; J2270; J2405; J3475

== ENCOUNTER 2022-11-05 13:52 | Outpatient (CLI) | payer BC, SELFPAY ==
[2022-11-05 15:01] LABS: Basophils Percent Auto 0.5 % (0.2-1.2); Eosinophils Percent Auto 0.4 % (0-4.4); Hematocrit 33.1 % (37.0-47.0); Hemoglobin 10.7 g/dL (12.0-15.0); Immature Granulocyte Absolute 0.02 K/mm3 (0.00-0.031); Immature Granulocyte Percent A 0.3 % (0-0.5); Lymphocytes Absolute Auto 1.64 K/mm3 (0.9-3.2); Lymphocytes Percent Auto 22.3 % (18.3-44.2); Mean Corpuscular HGB Conc 32.3 g/dl (32-36); Mean Corpuscular Hemoglobin 38.1 pg (26-34); Mean Corpuscular Volume 117.8 fl (80-100); Mean Platelet Volume 10.4 fl (7.4-10.4); Monocytes Absolute Auto 0.4 K/mm3 (0.1-0.6); Neutrophils Absolute Auto 5.3 K/mm3 (1.3-6.7); Neutrophils Percent Auto 71.5 % (45.5-73.1); Platelet Count Result 113 k/mm3 (150-375); Red Blood Count 2.81 M/mm3 (4.2-5.4); Red Cell Distribution Width 13.7 % (11.5-14.5); White Blood Count 7.4 K/mm3 (4.5-10.0)
[2022-11-05 15:13] LABS: Alanine Aminotransferase 37 U/L (6-35); Albumin Level 3.5 g/dL (3.5-5.1); Alkaline Phosphatase 190 U/L (38-126); Anion Gap 7 mmol/L (8-16); Aspartate Amino Transferase 75 U/L (14-36); Bilirubin,Total 1.9 mg/dL (0.2-1.3); Blood Urea Nitrogen 8 mg/dL (7-17); Calcium 8.7 mg/dL (8.4-10.2); Carbon Dioxide 30 mmol/L (22-30); Chloride 97 mmol/L (98-107); Estimated Glomerular Filt Rate > 60; Glucose 130 mg/dL (65-110); Potassium 3.8 mmol/L (3.4-5.0); Sodium 134 mmol/L (137-145)
[2022-11-05 15:41] LABS: Creatinine Urine 9.9 mg/dL
[2022-11-05 18:29] LABS: Microalbumin Urine Random < 6.0 mg/L (0-16.7)
== END 2022-11-05 13:53 | disposition home or self-care (01) ==
PROVIDERS: Internal Medicine; PCP Family Medicine; Visit Provider Physician Assistant Medical
DX: K74.60 Unspecified cirrhosis of liver (principal); R18.8 Other ascites; D69.6 Thrombocytopenia, unspecified; E11.9 Type 2 diabetes mellitus without complications
CPT/HCPCS: 36415; 80053; 82043; 85025

== ENCOUNTER 2022-12-25 14:18 | Outpatient (CLI) | payer BC, SELFPAY ==
[2022-12-25 15:01] LABS: Hematocrit 34.1 % (37.0-47.0); Hemoglobin 11.2 g/dL (12.0-15.0); Immature Platelet Fraction Pct 6.7 % (0.9-11.2); Mean Corpuscular HGB Conc 32.8 g/dl (32-36); Mean Corpuscular Volume 103.6 fl (80-100); Mean Platelet Volume 10.9 fl (7.4-10.4); Platelet Count Result 76 k/mm3 (150-375); Red Blood Count 3.29 M/mm3 (4.2-5.4); Red Cell Distribution Width 11.4 % (11.5-14.5); White Blood Count 6.1 K/mm3 (4.5-10.0)
[2022-12-25 15:10] LABS: INR 1.1; Prothrombin Time 14.5 Seconds (11.1-14.7)
[2022-12-25 17:08] LABS: Iron 78 ug/dL (37-170)
[2022-12-25 17:10] LABS: Alanine Aminotransferase 38 U/L (6-35); Albumin Level 4.8 g/dL (3.5-5.1); Alkaline Phosphatase 123 U/L (38-126); Anion Gap 9 mmol/L (8-16); Aspartate Amino Transferase 37 U/L (14-36); Bilirubin,Total 1.2 mg/dL (0.2-1.3); Blood Urea Nitrogen 25 mg/dL (7-17); Carbon Dioxide 30 mmol/L (22-30); Chloride 96 mmol/L (98-107); Estimated Glomerular Filt Rate 59; Glucose 239 mg/dL (65-110); Magnesium 2.4 mg/dL (1.6-2.3); Sodium 135 mmol/L (137-145)
[2022-12-25 17:17] LABS: Percent Iron Saturation 18 % (20-50)
[2022-12-25 18:41] LABS: Folic Acid > 20.0 ng/mL (2.76->20)
[2022-12-27 15:48] LABS: GGT 277 U/L (3-70)
== END 2022-12-25 14:19 | disposition home or self-care (01) ==
PROVIDERS: PCP Family Medicine; Visit Provider Nurse Practitioner Family
DX: K74.60 Unspecified cirrhosis of liver (principal); R18.8 Other ascites
CPT/HCPCS: 36415; 80053; 82607; 82728; 82746; 82977; 83540; 83550; 83735; 85027; 85055; 85610

== ENCOUNTER 2023-01-24 16:27 | Outpatient (CLI) | payer BC, SELFPAY ==
[2023-01-24 16:51] LABS: Basophils Percent Auto 0.2 % (0.2-1.2); Eosinophils Absolute Auto 0.1 K/mm3 (0-0.3); Hematocrit 36.1 % (37.0-47.0); Hemoglobin 11.9 g/dL (12.0-15.0); Immature Granulocyte Absolute 0.01 K/mm3 (0.00-0.031); Immature Granulocyte Percent A 0.2 % (0-0.5); Lymphocytes Absolute Auto 1.54 K/mm3 (0.9-3.2); Lymphocytes Percent Auto 25.2 % (18.3-44.2); Mean Corpuscular Hemoglobin 33.3 pg (26-34); Mean Corpuscular Volume 101.1 fl (80-100); Mean Platelet Volume 10.6 fl (7.4-10.4); Monocytes Absolute Auto 0.4 K/mm3 (0.1-0.6); Monocytes Percent Auto 5.7 % (2.6-8.5); Neutrophils Absolute Auto 4.2 K/mm3 (1.3-6.7); Neutrophils Percent Auto 67.7 % (45.5-73.1); Platelet Count Result 78 k/mm3 (150-375); Red Blood Count 3.57 M/mm3 (4.2-5.4); Red Cell Distribution Width 12.5 % (11.5-14.5); White Blood Count 6.1 K/mm3 (4.5-10.0)
[2023-01-24 16:56] LABS: Hemoglobin A1C 10.3 % (<5.7)
[2023-01-24 16:58] LABS: Alanine Aminotransferase 40 U/L (6-35); Alkaline Phosphatase 126 U/L (38-126); Anion Gap 14 mmol/L (8-16); Aspartate Amino Transferase 36 U/L (14-36); Blood Urea Nitrogen 31 mg/dL (7-17); Carbon Dioxide 26 mmol/L (22-30); Chloride 92 mmol/L (98-107); Estimated Glomerular Filt Rate 48; Glucose 333 mg/dL (65-110); Potassium 4.2 mmol/L (3.4-5.0); Sodium 132 mmol/L (137-145)
[2023-01-24 17:03] LABS: INR 1.1; Prothrombin Time 14.4 Seconds (11.1-14.7)
[2023-01-27 16:29] LABS: GGT 276 U/L (3-70)
== END 2023-01-24 16:28 | disposition home or self-care (01) ==
LOC: ANHLAB 16:28
PROVIDERS: PCP Family Medicine; Visit Provider Family Medicine
DX: E11.65 Type 2 diabetes mellitus with hyperglycemia (principal); K70.31 Alcoholic cirrhosis of liver with ascites
CPT/HCPCS: 36415; 80053; 82977; 83036; 85025; 85055; 85610

== ENCOUNTER 2023-01-29 02:14 | Day surgery (SDC) | payer BC, SELFPAY ==
[2023-01-17 14:10] VITALS: BMI 17.6
[2023-01-29 08:21] VITALS: BP 120/73; PULSE 102; RESP 18; TEMP 36.1; O2SAT 98
[2023-01-29] MEDS: LACTATED RINGERS 1,000 ML 150 ML IV CONT (08:29)
--- NOTE | 2023-01-29 08:33 | PM.HPGS ---
History of Present Illness History of Present Illness Consent: Risks, benefits, and alternatives have been discussed and questions answered. Patient agrees to proceed with procedure. Chief complaint: Other ascites, cirrhosis unspecified Narrative: Faiza Valenzuela is a 52 year old female with DM and alcoholic cirrhosis (quit drinking 14 weeks ago), intermittent abdominal pain, also nausea but reglan is helping (had negative GES 2019). She has not seen hepatology in [facility] yet Review of Systems Constitutional: Constitutional: Denies headache(s) and Denies weakness Eyes: Eyes: Denies blurry vision ENT: Reports Normal hearing present, Denies headache(s) and Denies neck pain Cardiovascular: Cardiovascular: Denies chest pain and Denies dyspnea Respiratory: Respiratory: Denies dyspnea Gastrointestinal: Gastrointestinal: Reports no additional gastrointestinal complaints Genitourinary: Genitourinary: Denies dysuria Musculoskeletal: Musculoskeletal: Denies neck pain Integumentary/Breasts: Skin/Breast: Denies dry skin Neurologic: Reports Normal hearing present, Denies headache(s) and Denies weakness Psychiatric: Psychiatric: Denies anxiety Endocrine: Endocrine: Denies change in body appearance Hematologic/Lymphatic: Hematologic/Lymphatic: Denies easy bleeding Allergic/Immunologic: Allergic/Immunologic: Denies urticaria PMFSH Past Medical History Medical History (Updated 01/29/23 @ 08:35 by Tre Esparza MD) Alcohol abuse Anxiety Body mass index (BMI) less than 20 Cirrhosis Depression Emphysema lung Essential hypertension Fatty liver History of Helicobacter pylori infection Hyperlipidemia Irritable bowel syndrome with constipation Lung nodules Neuropathy Primary insomnia Thrombocytopenia Tobacco abuse Vitamin D deficiency Surgical History Surgical History History of section History of hysterectomy Family History Family History Father Hypertension Family history of throat cancer Family history of heart disease in male family member before age 55 Mother Cerebrovascular accident Grandparent Carcinoma of colon Sibling Heart disease Other ADD (attention deficit disorder) Alcoholism Asthma COPD (chronic obstructive pulmonary disease) Cancer Glaucoma Lung disease Osteoporosis Social History Social History (Updated 01/17/23 @ 14:22 by Ewelina Arias RN) Social History: Surrogate medical decision maker: Delta Valenzuela, spouse. Code status: Full code. Smoking packs per day: 1 Smoking cigarettes per day: 20.0 Years smoked: 8 Smoking pack-years: 8.00 Smoking status: Former smoker Tobacco type: cigarettes and e-cigarettes/vaping Smokeless tobacco user: other Second hand tobacco smoke exposure: No Additional smoking assessment comments: vape Alcohol intake: former Drinks per week: 21 Alcohol use details: hx of alcohol abuse, no alcohol for 12 weeks (09/2022) Substance use: never Substance use type: does not use Lack of Transportation: No Lack of Food: Never True Current Housing: I Have Housing Concerned About Future Housing: No Difficulty Paying Gas/Electric Bills: No Difficulty Paying for Meds: No Currently Unemployed: No Education: High School Diploma/GED Difficulty w/ Childcare or Family Care: No Living arrangements: with family Additional living arrangements comments: Lives with spouse Delta in [place]. Occupation/Education: occupation Additional occupation/education comments: [employer] Gender identity (if verbalized by the patient): Female Spiritual care concerns: No Meds Home Medications and Allergies Home Medications Medication Instructions Recorded Confirmed Type pen needle, diabetic 32 gauge x #100 ea 09/06/21 01/17/23 Rx
[2023-01-29 08:35] LABS: Glucose Point of Care 260 mg/dl (65-105)
--- NOTE | 2023-01-29 08:44 | WPDANESEPPF ---
Anes - Initial Pre Proc Eval Procedure: Operation Date: 01/29/23 09:30 Proposed Procedures p Esophagogastroduodenoscopy - Tre Esparza MD Date/Time: 01/29/23 08:44 Surgeon: Tre Esparza MD Pre Op Diagnosis: Other ascites, cirrhosis unspecified Patient Data Age: 52 Gender: F Height: 1.52 m Weight: 42.1 kg Last Vital Signs Temp 96.9 F L 01/29/23 08:21 Pulse 102 H 01/29/23 08:21 Resp 18 01/29/23 08:21 BP 120/73 01/29/23 08:21 Pulse Ox 98 01/29/23 08:21 O2 Del Method Room Air 01/29/23 08:21 Allergies Allergy/AdvReac Type Severity Reaction Status Date / Time adhesive tape Allergy Itching Verified 01/29/23 08:17 metformin AdvReac Intermediate Abdominal Uncoded 01/29/23 08:17 Pain Home Medications Medication Instructions Recorded Confirmed Type pen needle, diabetic 32 gauge x #100 ea 09/06/21 01/17/23 Rx blood sugar diagnostic (FreeStyle #100 ea 10/28/22 01/17/23 Rx Lite Strips) blood-glucose meter (FreeStyle #1 ea 10/29/22 01/17/23 Rx Lite Meter kit) empagliflozin 10 mg tablet 10 mg PO DAILY #90 tabs 11/04/22 01/17/23 Rx (Jardiance) gabapentin 300 mg capsule See Rx Instructions .Route 12/05/22 01/17/23 Rx .COMPLEX #270 caps folic acid 1 mg tablet 1 mg PO DAILY #30 tabs 12/26/22 01/17/23 Rx spironolactone 50 mg tablet 100 mg PO QAM #60 tabs 12/26/22 01/17/23 Rx (Aldactone) ferrous sulfate 325 mg (65 mg 325 mg PO DAILY #30 tabs 01/09/23 01/17/23 Rx iron) tablet trazodone 50 mg tablet 50 mg PO QHS #30 tabs 01/09/23 01/17/23 Rx metoclopramide HCl 10 mg tablet 10 mg PO Q6H PRN nausea and 01/15/23 01/17/23 Rx (Reglan) vomiting #20 tabs furosemide 40 mg tablet 40 mg PO DAILY #30 tabs 01/19/23 01/29/23 Rx thiamine HCl (vitamin B1) 100 mg 100 mg PO QAM #30 tabs 01/19/23 01/29/23 Rx tablet (Vitamin B-1) propranolol 10 mg tablet 10 mg PO Q12H #60 tabs 01/29/23 01/29/23 Rx Laboratory Tests 01/29/23 08:33 POC Capillary Glucose 260 H mg/dl (65-105) Patient hx anesthesia problems: none Family hx anesthesia problems: none Results Review: All pre-operative results and documents have been reviewed as part of the pre-operative evaluation. [facility] Past Medical History Medical History (Updated 01/29/23 @ 08:35 by Tre Esparza MD) Alcohol abuse Anxiety Body mass index (BMI) less than 20 Cirrhosis Depression Emphysema lung Essential hypertension Fatty liver History of Helicobacter pylori infection Hyperlipidemia Irritable bowel syndrome with constipation Lung nodules Neuropathy Primary insomnia Thrombocytopenia Tobacco abuse Vitamin D deficiency Surgical History Surgical History History of section History of hysterectomy Family History Family History Father Hypertension Family history of throat cancer Family history of heart disease in male family member before age 55 Mother Cerebrovascular accident Grandparent Carcinoma of colon Sibling Heart disease Other ADD (attention deficit disorder) Alcoholism Asthma COPD (chronic obstructive pulmonary disease) Cancer Glaucoma Lung disease Osteoporosis Social History Social History (Updated 01/17/23 @ 14:22 by Ewelina Arias RN) Social History: Surrogate medical decision maker: Delta Valenzuela, spouse. Code status: Full code. Smoking packs per day: 1 Smoking cigarettes per day: 20.0 Years smoked: 8 Smoking pack-years: 8.00 Smoking status: Former smoker Tobacco type: cigarettes and e-cigarettes/vaping Smokeless tobacco user: other Second hand tobacco smoke exposure: No Additional smoking assessment comments: vape Alcohol intake: former Drinks per week: 21 Alcohol use details: hx of alcohol abuse, no alcohol for 12 weeks (09/2022) Substance
[2023-01-29 08:47] VITALS: BP 102/62; PULSE 89; RESP 17; O2SAT 96
[2023-01-29 08:57] VITALS: BP 103/74; PULSE 93; RESP 20; O2SAT 100
[2023-01-29 09:07] VITALS: BP 115/79; PULSE 88; RESP 22; O2SAT 100
== END 2023-01-29 09:13 | disposition home or self-care (01) ==
PROVIDERS: PCP Family Medicine; Visit Provider Internal Medicine Gastroenterology
PROC: 0DJ08ZZ Inspection of Upper Intestinal Tract, Via Natural or Artificial Opening Endoscopic (ICD-10-PCS; CPT 43235; principal; 2023-01-29 09:30)
DX: K70.30 Alcoholic cirrhosis of liver without ascites (principal); I85.10 Secondary esophageal varices without bleeding; K31.84 Gastroparesis; K29.50 Unspecified chronic gastritis without bleeding; E78.5 Hyperlipidemia, unspecified; J43.9 Emphysema, unspecified; K58.1 Irritable bowel syndrome with constipation; I10 Essential (primary) hypertension; F41.9 Anxiety disorder, unspecified; F32.A Depression, unspecified; F17.290 Nicotine dependence, other tobacco product, uncomplicated; Z79.84 Long term (current) use of oral hypoglycemic drugs
CPT/HCPCS: 43239; 82948; 88305; 88342; J2704; J7120

== ENCOUNTER 2023-02-04 11:25 | Outpatient (CLI) | payer BC, SELFPAY ==
--- NOTE | ~2023-02-04 | XR_ITS ---
Supine and upright views of the abdomen Clinical history: Kidney stones Findings: Bowel gas pattern is nonspecific. No evidence for obstruction or free air. Probable small l eft renal stones present, measuring up to 3 mm. Suspected punctate right renal stones. Osseous struct ures are intact. Impression: Small bilateral renal stones probably present, as above. Reviewed, dictated and finalized at [facility]. Impression: Small bilateral renal stones probably present, as above.
== END 2023-02-04 11:26 | disposition home or self-care (01) ==
LOC: ANHIMG 11:32
PROVIDERS: PCP Family Medicine; Visit Provider Urology
DX: N20.0 Calculus of kidney (principal)
CPT/HCPCS: 74018

== ENCOUNTER 2023-02-24 12:29 | Outpatient (CLI) | payer BC, SELFPAY ==
--- NOTE | ~2023-02-24 | US_ITS ---
EXAMINATION: US abdomen limited DATE: 02/24/2023 13:53 INDICATION: Cirrhosis of the liver. TECHNIQUE: Multiple grayscale and Doppler ultrasound images of the abdomen were obtained prior to amber nned paracentesis was deferred due to insufficient fluid. COMPARISON: 10/25/2022 FINDINGS/IMPRESSION: No ascites identified in the abdomen or pelvis. Planned paracentesis was canceled. Reviewed, dictated and finalized at location A.
== END 2023-02-24 12:30 | disposition home or self-care (01) ==
PROVIDERS: PCP Family Medicine; Visit Provider Nurse Practitioner Family
DX: K74.60 Unspecified cirrhosis of liver (principal)
CPT/HCPCS: 76705

== ENCOUNTER 2023-07-08 16:08 | Outpatient (CLI) | payer OTHER, SELFPAY ==
[2023-07-08 16:42] LABS: Basophils Percent Auto 0.5 % (0.2-1.2); Eosinophils Absolute Auto 0.1 K/mm3 (0-0.3); Eosinophils Percent Auto 1.1 % (0-4.4); Hematocrit 33.6 % (37.0-47.0); Hemoglobin 10.9 g/dL (12.0-15.0); Immature Granulocyte Absolute 0.02 K/mm3 (0.00-0.031); Immature Granulocyte Percent A 0.5 % (0-0.5); Immature Platelet Fraction Pct 2.9 % (0.9-11.2); Lymphocytes Absolute Auto 0.92 K/mm3 (0.9-3.2); Lymphocytes Percent Auto 21.1 % (18.3-44.2); Mean Corpuscular HGB Conc 32.4 g/dl (32-36); Mean Corpuscular Hemoglobin 33.9 pg (26-34); Mean Corpuscular Volume 104.3 fl (80-100); Mean Platelet Volume 9.5 fl (7.4-10.4); Monocytes Absolute Auto 0.3 K/mm3 (0.1-0.6); Monocytes Percent Auto 7.8 % (2.6-8.5); Platelet Count Result 64 k/mm3 (150-375); Red Blood Count 3.22 M/mm3 (4.2-5.4); Red Cell Distribution Width 13.8 % (11.5-14.5); White Blood Count 4.4 K/mm3 (4.5-10.0)
[2023-07-08 16:48] LABS: Hemoglobin A1C 6.6 % (<5.7)
[2023-07-08 16:49] LABS: Ammonia 24 umol/L (9-30)
[2023-07-08 16:56] LABS: Alanine Aminotransferase 23 U/L (6-35); Albumin Level 4.3 g/dL (3.5-5.1); Alkaline Phosphatase 115 U/L (38-126); Anion Gap 9 mmol/L (8-16); Aspartate Amino Transferase 30 U/L (14-36); Bilirubin,Total 1.1 mg/dL (0.2-1.3); Blood Urea Nitrogen 30 mg/dL (7-17); Calcium 9.2 mg/dL (8.4-10.2); Carbon Dioxide 29 mmol/L (22-30); Chloride 97 mmol/L (98-107); Estimated Glomerular Filt Rate 43; Glucose 231 mg/dL (65-110); Potassium 4.7 mmol/L (3.4-5.0); Sodium 135 mmol/L (137-145)
[2023-07-08 17:05] LABS: Platelet Estimate Decreased (Adequate); Schistocytes None Seen (NORMAL)
[2023-07-08 17:19] LABS: Iron 88 ug/dL (37-170)
[2023-07-08 17:27] LABS: Thyroid Stimulating Hormone 0.867 uIU/mL (0.465-4.680)
[2023-07-08 17:31] LABS: Percent Iron Saturation 25 % (20-50)
[2023-07-10 20:28] LABS: GGT 129 U/L (3-70)
== END 2023-07-08 16:09 | disposition home or self-care (01) ==
PROVIDERS: PCP Family Medicine; Visit Provider Family Medicine
DX: D53.9 Nutritional anemia, unspecified (principal); K70.31 Alcoholic cirrhosis of liver with ascites; E11.65 Type 2 diabetes mellitus with hyperglycemia; I10 Essential (primary) hypertension
CPT/HCPCS: 36415; 80053; 82140; 82607; 82728; 82977; 83036; 83540; 83550; 84443; 85025; 85055

== ENCOUNTER 2023-07-29 07:35 | Outpatient (CLI) | payer OTHER, SELFPAY ==
--- NOTE | ~2023-07-29 | US_ITS ---
Limited Abdominal Sonogram: Real-time sonographic imaging of the right upper quadrant was performed. Clinical History: Cirrhosis Findings: The liver demonstrate mildly nodular contour. No focal mass lesion or bile duct dilatation . Main portal vein demonstrates normal direction of flow. The gallbladder is well distended, and appe ars normal with no evidence of gallstone or wall thickening. The common bile duct measures 6 mm. The visualized pancreas, aorta, and IVC are unremarkable. Impression: Probable minimally nodular contour of liver. Correlate for early cirrhosis. Reviewed, dictated and finalized at location M. OFFICER Impression: Probable minimally nodular contour of liver. Correlate for early cirrhosis.
== END 2023-07-29 07:36 | disposition home or self-care (01) ==
LOC: ANHIMG 07:37
PROVIDERS: PCP Family Medicine; Visit Provider Internal Medicine Gastroenterology
DX: K74.60 Unspecified cirrhosis of liver (principal)
CPT/HCPCS: 76705

== ENCOUNTER 2023-07-29 14:14 | Outpatient (RCR) | payer OTHER, SELFPAY ==
--- NOTE | 2023-07-29 15:14 | OPREHPOC ---
Outpatient Therapy Plan of Care This is a Multidisciplinary Plan of Care that may contain components documented by all disciplines (PT, OT, and ST.) PT Problem 1 PT Problem #1 Knowledge Deficit PT Goal 1 Goal 1*indep with HEP 2* correct use of gait assistive device PT Problem 2 PT Problem #2 Pain PT Goal 1 Goal 1* monitor pain during sessions PT Problem 3 PT Problem #3 Impaired Strength PT Goal 1 Goal increase strength of R and L LE's to improve gait and balance skills: 1* pt perform R and L supine exercises x 15 reps 2* sit/stand transfer without use of UE's x 5 reps PT Problem 4 PT Problem #4 Impaired Functional Mobil PT Goal 1 Goal 1* pt report NO falls 2* Tinetti balance/gait score of 23/28 3* 2 minute walking test distance of 260' 4* 5 reps sit/stand time of 28 seconds
--- NOTE | 2023-07-29 15:14 | PTOPEVAL1 ---
Assessment and note entered by Ryanne East, PT Evaluation Information Assessment Status Evaluation Diagnosis ataxia, neuropathy Onset past few years Subjective Information in the past 6 months, have had 10-15 falls; lose balance when walking, have fallen when stepping down off small 2 step ladder; was going to the Neuropathy center and they hooked me up to machines, but they said I needed to come for PT and not there anymore. Is not doing any exercises at home for her legs. Activity: work at [employer] at [employer] 35- 40 hours/week; at home, does lifting and climbing on ladder activities; does not drive when shopping, have to use the scooter, cannot make it that far with walking; Goal: better balance and leg strength; Reported Pain Level Pain Score 8: Self Report Additional Pain Score Comments both legs, aches and hurts in both legs; feels tight over legs; feet numb but painful; Assessment PT Clinical Summary Faiza has the diagnosis of ataxia, neuropathy. She reports multiple falls and pain in her legs and feet; has to look at her feet when walking and on the stairs because she cannot feel them. 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 With the evaluation, she has decreased LE strength R and L LE with decreased motor control/ ataxia; 5 reps sit/stand time of 40 sec with 1 UE use; 2 minute walking test distance of 160'; Tinetti balance score of 15/28; she reported pain increase with all R and L LE motions, transfer and gait. Stated she did not take her pain meds prior to coming in for the evaluation today. Skilled PT services are indicted for therapeutic exercises and activities on land and in the water, to increase mobility and strength, with education for home exercises, assistive device gait training and safety. Plan of Care Interventions Aquatic Therapy,Gait Training,Neuro Re-education, Patient/Caregiver Education,Therapeutic Activities, Therapeutic Exercise,Self-Care/Home Management PT Services Indicated Ye
--- NOTE | 2023-08-06 09:43 | PTOPDC ---
Assessment and note entered by Ryanne East, PT Discharge Information Assessment Status Discharge - Pt Not Present Diagnosis ataxia, neuropathy Onset past few years Assessment PT Clinical Summary Faiza attended the PT evaluation on Jul 29. She called today and canceled her therapy due to financial concerns. Discharge PT per pt request. The goals were not addressed. Plan of Care PT Services Indicated No
== END 2023-08-06 11:12 | disposition home or self-care (01) ==
LOC: ANHPT 14:14
PROVIDERS: PCP Family Medicine; Visit Provider Family Medicine
DX: R27.0 Ataxia, unspecified (principal); G62.9 Polyneuropathy, unspecified
CPT/HCPCS: 97110; 97162; 97530

== ENCOUNTER 2023-09-08 12:18 | Outpatient (CLI) | payer OTHER, SELFPAY ==
--- NOTE | ~2023-09-08 | XR_ITS ---
EXAMINATION: XR abdomen/kub 1V DATE: 09/08/2023 12:45 INDICATION: Bilateral nephrolithiasis TECHNIQUE: A supine view of the abdomen on 2 radiographs was obtained. COMPARISON: KUB dated 02/04/[address] dated 10/24/2022 FINDINGS: Moderate amount of stool scattered throughout the colon and small to moderate amount of scattered bow el gas abdomen and pelvis which limits assessment for tiny stones along the ureters and at the right kidney. No interval change in a 3 mm and 1 mm stone projecting over the lower pole of the left kidney . Also unchanged is a 3 mm stone at the lower pole of the right kidney. Unchanged pattern of phleboli ths in the pelvis, 3 on the left and 2 on the right. Splenomegaly with splenic shadow measuring at le ast 16.5 cm craniocaudally. IMPRESSION: 1. Unchanged bilateral nephrolithiasis. 2. Nonspecific splenomegaly. Reviewed, dictated and finalized at location B.
== END 2023-09-08 12:19 | disposition home or self-care (01) ==
PROVIDERS: PCP Family Medicine; Visit Provider Urology
DX: N20.0 Calculus of kidney (principal)
CPT/HCPCS: 74018

== ENCOUNTER 2023-09-23 08:29 | Outpatient (CLI) | payer OTHER, SELFPAY ==
[2023-09-23 08:52] LABS: Hematocrit 34.7 % (37.0-47.0); Hemoglobin 11.2 g/dL (12.0-15.0); Mean Corpuscular HGB Conc 32.3 g/dl (32-36); Mean Corpuscular Hemoglobin 33.8 pg (26-34); Mean Corpuscular Volume 104.8 fl (80-100); Mean Platelet Volume 9.9 fl (7.4-10.4); Platelet Count Result 79 k/mm3 (150-375); Red Blood Count 3.31 M/mm3 (4.2-5.4); Red Cell Distribution Width 13.7 % (11.5-14.5)
[2023-09-23 09:09] LABS: Alanine Aminotransferase 24 U/L (6-35); Albumin Level 4.5 g/dL (3.5-5.1); Alkaline Phosphatase 119 U/L (38-126); Anion Gap 6 mmol/L (8-16); Aspartate Amino Transferase 25 U/L (14-36); Bilirubin,Total 0.9 mg/dL (0.2-1.3); Blood Urea Nitrogen 36 mg/dL (7-17); Calcium 9.6 mg/dL (8.4-10.2); Carbon Dioxide 30 mmol/L (22-30); Chloride 102 mmol/L (98-107); Cholesterol 178 mg/dL (0-200); Estimated Glomerular Filt Rate 47; Glucose 201 mg/dL (65-110); HDL Direct 46 mg/dL; Potassium 5.1 mmol/L (3.4-5.0); Sodium 138 mmol/L (137-145); Triglycerides 115 mg/dL (<150)
[2023-09-23 09:20] LABS: LDL Cholesterol Direct 98 mg/dL
[2023-09-23 09:26] LABS: Vitamin D 25 Hydroxy 54.6 ng/mL
[2023-09-23 09:39] LABS: Thyroid Stimulating Hormone 0.986 uIU/mL (0.465-4.680)
[2023-09-23 09:49] LABS: Iron 72 ug/dL (37-170); Percent Iron Saturation 20 % (20-50)
== END 2023-09-23 08:30 | disposition home or self-care (01) ==
PROVIDERS: PCP Family Medicine; Visit Provider Nurse Practitioner Family
DX: D69.6 Thrombocytopenia, unspecified (principal); E11.9 Type 2 diabetes mellitus without complications; R53.83 Other fatigue; E55.9 Vitamin D deficiency, unspecified
CPT/HCPCS: 36415; 80053; 80061; 82306; 83540; 83550; 84443; 85027; 85055

== ENCOUNTER 2023-10-01 13:01 | Outpatient (CLI) | payer OTHER, SELFPAY ==
--- NOTE | ~2023-10-01 | CT_ITS ---
EXAMINATION: CT abdomen pelvis wo con DATE: 10/01/2023 13:19 INDICATION: Splenomegaly TECHNIQUE: Computed tomography (CT) of the abdomen and pelvis was performed without intravenous contr ast. Automated exposure control and iterative reconstruction technique were employed. Exam dose: 184 .60 mGy-cm total exam DLP. COMPARISON: October 24, 2022 CT abdomen pelvis FINDINGS: There are multiple focal irregular nodular densities in the left lower lobe with adjacent i nfiltrate, suggesting focal areas of nodular pulmonary consolidation. No such nodules are identified in the base of the lingula, middle lobe or right lower lobe. Less likely consideration would be metas tatic disease. Normal heart size. No pericardial or pleural effusion. Mild surface nodularity of liver, suggesting cirrhosis. There is splenomegaly, spleen measuring up to 15 cm vertical dimension. No hepatic, splenic, pancreatic or adrenal space-occupying mass lesion is evident on this limited non contrast examination. The gallbladder is present. No gallbladder wall thickening or pericholecystic fluid or fat stranding or bile duct or pancreatic duct dilatation is detected. There is scarring of both kidneys and asymmetric left renal atrophy. Several small nonobstructing rig ht renal calculi and one small nonobstructing left renal calculus. No ureteral calculus or hydrourete ronephrosis is noted on either side. The urinary bladder is unremarkable. Status post hysterectomy. There is calcification of the abdominal aorta but no abdominal aortic aneurysm. No intraperitoneal or retroperitoneal or pelvic mass lesion or adenopathy or ascites is noted. Normal appendix. No bowel obstruction, bowel wall thickening, pneumatosis or intraperitoneal free air is detected. No suspicious osteolytic or osteoblastic lesions. IMPRESSION: Cirrhosis, splenomegaly Bilateral renal scarring, left renal atrophy Status post hysterectomy Reviewed, dictated and finalized at Location A. Reviewed, dictated and finalized at location B.
== END 2023-10-01 13:02 | disposition home or self-care (01) ==
LOC: ANHIMG 13:05
PROVIDERS: PCP Family Medicine; Visit Provider Nurse Practitioner Family
DX: R16.1 Splenomegaly, not elsewhere classified (principal); K74.69 Other cirrhosis of liver
CPT/HCPCS: 74176

== ENCOUNTER 2023-11-21 03:08 | Day surgery (SDC) | payer OTHER, SELFPAY ==
[2023-11-06 12:57] VITALS: BMI 20.4
[2023-11-21 09:09] VITALS: BP 112/63; PULSE 91; RESP 16; TEMP 36.4; O2SAT 97
[2023-11-21] MEDS: LACTATED RINGERS 1,000 ML 150 ML IV CONT (09:18)
[2023-11-21 09:22] LABS: Glucose Point of Care 161 mg/dl (65-105)
--- NOTE | 2023-11-21 09:42 | WPDANESEPPF ---
Anes - Initial Pre Proc Eval Procedure: Operation Date: 11/21/23 13:30 Proposed Procedures p Colonoscopy - Tre Esparza MD Date/Time: 11/21/23 09:42 Surgeon: Tre Esparza MD Pre Op Diagnosis: diarrhea Patient Data Age: 53 Gender: F Height: 1.52 m Weight: 45.4 kg Last Vital Signs Temp 36.4 C L 11/21/23 09:09 Pulse 91 11/21/23 09:09 Resp 16 11/21/23 09:09 BP 112/63 11/21/23 09:09 Pulse Ox 97 11/21/23 09:09 O2 Del Method Room Air 11/21/23 09:09 Allergies Allergy/AdvReac Type Severity Reaction Status Date / Time adhesive tape Allergy Itching Verified 11/21/23 09:08 Home Medications Medication Instructions Recorded Confirmed Type pen needle, diabetic 32 gauge x #100 ea 09/06/21 11/06/23 Rx 32 blood sugar diagnostic (FreeStyle #100 ea 10/28/22 11/06/23 Rx Lite Strips) blood-glucose meter (FreeStyle #1 ea 10/29/22 11/06/23 Rx Lite Meter kit) metoclopramide HCl 10 mg tablet 10 mg PO Q6H PRN nausea and 02/26/23 11/06/23 Rx (Reglan) vomiting #90 tabs ondansetron HCl 4 mg tablet 4 mg PO Q8H PRN nausea and 02/26/23 11/06/23 Rx vomiting #90 tabs folic acid 1 mg tablet 1 mg PO DAILY #90 tabs 06/17/23 11/06/23 Rx furosemide 40 mg tablet 40 mg PO DAILY #90 tabs 06/17/23 11/06/23 Rx omeprazole 40 mg capsule,delayed See Rx Instructions .Route 07/29/23 11/06/23 Rx release .COMPLEX #90 caps gabapentin 300 mg capsule See Rx Instructions .Route 09/01/23 11/06/23 Rx .COMPLEX #270 caps thiamine HCl (vitamin B1) 100 mg 100 mg PO QAM #90 tabs 10/01/23 11/06/23 Rx tablet (Vitamin B-1) propranolol 10 mg tablet See Rx Instructions .Route 10/03/23 11/06/23 Rx .COMPLEX #180 tabs trazodone 50 mg tablet 50 mg PO QHS #30 tabs 10/03/23 11/06/23 Rx duloxetine 60 mg capsule,delayed 60 mg PO DAILY #90 caps 10/07/23 11/06/23 Rx release ferrous sulfate 325 mg (65 mg 325 mg PO DAILY #30 tabs 10/20/23 11/06/23 Rx iron) tablet empagliflozin 10 mg tablet 10 mg PO DAILY #90 tabs 10/27/23 11/06/23 Rx (Jardiance) Laboratory Tests 11/21/23 09:17 POC Capillary Glucose 161 H mg/dl (65-105) Patient hx anesthesia problems: none Family hx anesthesia problems: none Results Review: All pre-operative results and documents have been reviewed as part of the pre-operative evaluation. [facility] Past Medical History Medical History (Updated 10/07/23 @ 16:15 by Juan Guerrero MD) Alcohol abuse Anxiety Ataxia Body mass index (BMI) less than 20 Chronic pain Cirrhosis Depression Diarrhea Emphysema lung Esophageal varices determined by endoscopy Essential hypertension Fatty liver Gastroparesis History of Helicobacter pylori infection Hyperlipidemia Irritable bowel syndrome with constipation Irritable bowel syndrome with diarrhea Lung nodules Neuropathy Primary insomnia Thrombocytopenia Tobacco abuse Vitamin D deficiency Surgical History Surgical History H/O endoscopy History of section History of hysterectomy Family History Family History Father Hypertension Family history of throat cancer Family history of heart disease in male family member before age 55 Mother Cerebrovascular accident Pancreatic cancer Diabetes mellitus Grandparent Carcinoma of colon Sibling Heart disease Lupus Acute myocardial infarction Other ADD (attention deficit disorder) Alcoholism Asthma COPD (chronic obstructive pulmonary disease) Cancer Glaucoma Lung disease Osteoporosis Social History Social History Social History: Surrogate medical decision maker: Delta Valenzuela, spouse. Code status: Full code. Smoking packs per day: 1 Smoking cigarettes per day: 20.0 Years smoked: 8 Smoking pack-years: 8.00 Smoking
--- NOTE | 2023-11-21 10:00 | PM.HPGS ---
History of Present Illness History of Present Illness Consent: Risks, benefits, and alternatives have been discussed and questions answered. Patient agrees to proceed with procedure. Chief complaint: diarrhea Narrative: Faiza Valenzuela is a 53 year old female with diarrhea for almost a year sometimes accidents unless she takes antidiarrheal, also h/o alcoholic cirrhosis but abstinent since early 2022, she is already established with hepatology at [facility] Review of Systems Review of Systems: All systems reviewed & are unremarkable except as noted in HPI and below PMFSH Past Medical History Medical History (Updated 10/07/23 @ 16:15 by Juan Guerrero MD) Alcohol abuse Anxiety Ataxia Body mass index (BMI) less than 20 Chronic pain Cirrhosis Depression Diarrhea Emphysema lung Esophageal varices determined by endoscopy Essential hypertension Fatty liver Gastroparesis History of Helicobacter pylori infection Hyperlipidemia Irritable bowel syndrome with constipation Irritable bowel syndrome with diarrhea Lung nodules Neuropathy Primary insomnia Thrombocytopenia Tobacco abuse Vitamin D deficiency Surgical History Surgical History H/O endoscopy History of section History of hysterectomy Family History Family History Father Hypertension Family history of throat cancer Family history of heart disease in male family member before age 55 Mother Cerebrovascular accident Pancreatic cancer Diabetes mellitus Grandparent Carcinoma of colon Sibling Heart disease Lupus Acute myocardial infarction Other ADD (attention deficit disorder) Alcoholism Asthma COPD (chronic obstructive pulmonary disease) Cancer Glaucoma Lung disease Osteoporosis Social History Social History Social History: Surrogate medical decision maker: Delta Valenzuela, spouse. Code status: Full code. Smoking packs per day: 1 Smoking cigarettes per day: 20.0 Years smoked: 8 Smoking pack-years: 8.00 Smoking status: Former smoker Tobacco type: cigarettes and e-cigarettes/vaping Smokeless tobacco user: other Second hand tobacco smoke exposure: No Additional smoking assessment comments: continues to vape Alcohol intake: former Drinks per week: 21 Alcohol use details: 10-12 drinks vodka per day, quit 2022 Substance use: never Substance use type: does not use Do You Feel Safe in your Home?: Yes Lack of Transportation: No Lack of Food: Never True Current Housing: I Have Housing Concerned About Future Housing: No Difficulty Paying Gas/Electric Bills: No Difficulty Paying for Meds: No Currently Unemployed: No Education: High School Diploma/GED Difficulty w/ Childcare or Family Care: No Living arrangements: with family Additional living arrangements comments: Lives with spouse Delta in [place]. Occupation/Education: occupation Additional occupation/education comments: [employer] Gender identity (if verbalized by the patient): Female Spiritual care concerns: No Meds Home Medications and Allergies Home Medications Medication Instructions Recorded Confirmed Type pen needle, diabetic 32 gauge x #100 ea 09/06/21 11/06/23 Rx /32 blood sugar diagnostic (FreeStyle #100 ea 10/28/22 11/06/23 Rx Lite Strips) blood-glucose meter (FreeStyle #1 ea 10/29/22 11/06/23 Rx Lite Meter kit) metoclopramide HCl 10 mg tablet 10 mg PO Q6H PRN nausea and 02/26/23 11/06/23 Rx (Reglan) vomiting #90 tabs ondansetron HCl 4 mg tablet 4 mg PO Q8H PRN nausea and 02/26/23 11/06/23 Rx vomiting #90 tabs folic acid 1 mg tablet 1 mg PO DAILY #90 tabs 06/17/23 11/06/23 Rx furosemide 40 mg tablet 40 mg PO DAILY #90 tabs 06/17/23 11/06/23 Rx omeprazole 40 mg capsule,delayed See
[2023-11-21 10:19] VITALS: BP 90/55; PULSE 76; RESP 20; O2SAT 97
[2023-11-21 10:29] VITALS: BP 93/55; PULSE 78; RESP 16; O2SAT 97
[2023-11-21 10:39] VITALS: BP 116/61; PULSE 78; RESP 17; O2SAT 96
== END 2023-11-21 10:42 | disposition home or self-care (01) ==
PROVIDERS: PCP Family Medicine; Visit Provider Internal Medicine Gastroenterology
PROC: 0DJD8ZZ Inspection of Lower Intestinal Tract, Via Natural or Artificial Opening Endoscopic (ICD-10-PCS; CPT 45378; principal; 2023-11-21 13:30)
DX: K57.30 Diverticulosis of large intestine without perforation or abscess without bleeding (principal); D12.5 Benign neoplasm of sigmoid colon; K63.5 Polyp of colon; I10 Essential (primary) hypertension; E78.5 Hyperlipidemia, unspecified; K58.2 Mixed irritable bowel syndrome; E55.9 Vitamin D deficiency, unspecified; F41.9 Anxiety disorder, unspecified; F32.A Depression, unspecified; J43.9 Emphysema, unspecified; G89.29 Other chronic pain; K31.84 Gastroparesis; G47.00 Insomnia, unspecified; K70.31 Alcoholic cirrhosis of liver with ascites; Z79.84 Long term (current) use of oral hypoglycemic drugs; Z98.890 Other specified postprocedural states; Z87.891 Personal history of nicotine dependence; Z80.1 Family history of malignant neoplasm of trachea, bronchus and lung; Z80.0 Family history of malignant neoplasm of digestive organs; Z82.49 Family history of ischemic heart disease and other diseases of the circulatory system
CPT/HCPCS: 45385; 45380; 82948; 88305; J2704; J7120

== ENCOUNTER 2023-12-04 10:56 | Outpatient (CLI) | payer OTHER, SELFPAY ==
--- NOTE | ~2023-12-04 | US_ITS ---
Limited Abdominal Sonogram: Real-time sonographic imaging of the right upper quadrant was performed. Clinical History: Cirrhosis Findings: The liver is normal in echotexture with no evidence of mass lesion or bile duct dilatation . Probable nodular contour of liver. Main portal vein demonstrates normal direction of flow. The gall bladder is well distended, and appears normal with no evidence of gallstone or wall thickening. The c ommon bile duct measures 5 mm. The visualized pancreas, aorta, and IVC are unremarkable. Impression: Probable mild nodular contour of liver, which could reflect cirrhotic change. Correlate clinically. Reviewed, dictated and finalized at location . Impression: Probable mild nodular contour of liver, which could reflect cirrhotic change. C rakeshelaamber clinically.
== END 2023-12-04 10:57 | disposition home or self-care (01) ==
LOC: ANHIMG 10:56
PROVIDERS: PCP Family Medicine; Visit Provider Internal Medicine Gastroenterology
DX: K70.31 Alcoholic cirrhosis of liver with ascites (principal)
CPT/HCPCS: 76705

== ENCOUNTER 2024-01-08 16:45 | Outpatient (CLI) | payer OTHER, SELFPAY ==
[2024-01-08 17:25] LABS: Basophils Percent Auto 0.6 % (0.2-1.2); Eosinophils Absolute Auto 0.1 K/mm3 (0-0.3); Hematocrit 30.8 % (37.0-47.0); Hemoglobin 10.1 g/dL (12.0-15.0); Immature Granulocyte Absolute 0.01 K/mm3 (0.00-0.031); Immature Granulocyte Percent A 0.3 % (0-0.5); Immature Platelet Fraction Pct 4.3 % (0.9-11.2); Lymphocytes Absolute Auto 1.05 K/mm3 (0.9-3.2); Lymphocytes Percent Auto 29.7 % (18.3-44.2); Mean Corpuscular HGB Conc 32.8 g/dl (32-36); Mean Corpuscular Hemoglobin 32.9 pg (26-34); Mean Corpuscular Volume 100.3 fl (80-100); Mean Platelet Volume 9.8 fl (7.4-10.4); Monocytes Absolute Auto 0.2 K/mm3 (0.1-0.6); Monocytes Percent Auto 6.8 % (2.6-8.5); Neutrophils Absolute Auto 2.2 K/mm3 (1.3-6.7); Neutrophils Percent Auto 60.6 % (45.5-73.1); Platelet Count Result 43 k/mm3 (150-375); Red Blood Count 3.07 M/mm3 (4.2-5.4); Red Cell Distribution Width 13.5 % (11.5-14.5); White Blood Count 3.5 K/mm3 (4.5-10.0)
[2024-01-08 17:32] LABS: Alanine Aminotransferase 20 U/L (6-35); Albumin Level 4.2 g/dL (3.5-5.1); Alkaline Phosphatase 140 U/L (38-126); Amylase 63 U/L (30-110); Anion Gap 8 mmol/L (4-12); Aspartate Amino Transferase 25 U/L (14-36); Bilirubin,Total 0.8 mg/dL (0.2-1.3); Blood Urea Nitrogen 22 mg/dL (7-17); Calcium 8.5 mg/dL (8.4-10.2); Carbon Dioxide 28 mmol/L (22-30); Chloride 101 mmol/L (98-107); Estimated Glomerular Filt Rate 58; Glucose 301 mg/dL (65-110); Lipase 136 U/L (23-300); Potassium 4.3 mmol/L (3.4-5.0); Sodium 137 mmol/L (137-145)
[2024-01-08 17:47] LABS: Creatinine Urine 17.2 mg/dL
[2024-01-08 17:49] LABS: Iron 71 ug/dL (37-170)
[2024-01-08 17:52] LABS: MALB Creatinine Ratio 55.2 mg/g (0-30); Microalbumin Urine Random 9.5 mg/L (0-16.7)
[2024-01-08 17:53] LABS: Platelet Estimate Decreased (Adequate); Schistocytes None Seen
[2024-01-08 17:58] LABS: Percent Iron Saturation 23 % (20-50)
[2024-01-08 18:00] LABS: Ammonia 30 umol/L (9-30)
[2024-01-08 18:06] LABS: Vitamin D 25 Hydroxy 24.9 ng/mL
[2024-01-13 12:45] LABS: GGT 97 U/L
== END 2024-01-08 16:46 | disposition home or self-care (01) ==
LOC: ANHLAB 16:47
PROVIDERS: PCP Family Medicine; Visit Provider Family Medicine
DX: E55.9 Vitamin D deficiency, unspecified (principal); D53.9 Nutritional anemia, unspecified; K70.31 Alcoholic cirrhosis of liver with ascites; F10.10 Alcohol abuse, uncomplicated; R10.10 Upper abdominal pain, unspecified; R80.9 Proteinuria, unspecified; E78.5 Hyperlipidemia, unspecified
CPT/HCPCS: 36415; 80053; 82043; 82140; 82150; 82248; 82306; 82607; 82728; 82977; 83540; 83550; 83690; 85025; 85055

== ENCOUNTER 2024-05-19 07:38 | Outpatient (CLI) | payer OTHER, SELFPAY ==
--- NOTE | ~2024-05-19 | US_ITS ---
Limited Abdominal Sonogram: Real-time sonographic imaging of the right upper quadrant was performed. Clinical History: Alcoholic cirrhosis Findings: The liver appears mildly heterogeneous, probably mildly nodular contour. No focal hepatic mass or biliary dilatation seen. Main portal vein demonstrates normal direction of flow. The gallblad alethea is well distended, and appears normal with no evidence of gallstone or wall thickening. The commo n bile duct measures 6 mm. The visualized pancreas, aorta, and IVC are unremarkable. Impression: Cirrhotic morphology of the liver. No hepatic mass or biliary dilatation evident. Reviewed, dictated and finalized at location . [employer] Impression: Cirrhotic morphology of the liver. No hepatic mass or biliary dilatation aydeeen dexter
== END 2024-05-19 07:39 | disposition home or self-care (01) ==
PROVIDERS: PCP Family Medicine; Visit Provider Internal Medicine Gastroenterology
DX: K70.31 Alcoholic cirrhosis of liver with ascites (principal)
CPT/HCPCS: 76705

== ENCOUNTER 2024-07-14 11:05 | Emergency (ER) | payer OTHER, SELFPAY ==
--- NOTE | ~2024-07-14 | CT_ITS ---
CT abdomen pelvis w con Ordering provider: Rodolfo Donald MD History: 53 years Female with . colitis . Comparison: None. Technique: CT abdomen and pelvis with IV and without oral contrast. Automated exposure control and it erative reconstruction technique were employed. The dose-length product was 223.63 mGy-cm. 100 mL Omn ipaque 350 was given IV. Findings: VISUALIZED LOWER CHEST: Dependent atelectatic changes. UPPER ABDOMINAL ORGANS: Liver: Normal. Gallbladder: Normal. Spleen: Splenomegaly. Stomach/duodenum: Normal. Collateral vessels are seen around the lower esophagus suggestive of varico sities. Pancreas: Normal. Adrenals: Normal. Kidneys: Calcification in the left renal cortex with scarring in multiple areas. Small left kidney.. Right kidney stone lower pole. Slight dilatation of the right renal pelvis is seen with slight dilata tion of the ureter. Multiple scars are seen in the right kidney with possible lobation. No defi nite ureteric stones seen. PELVIC ORGANS: The bladder is underfilled. Thickened wall is seen which may indicate cystitis. Furthe r evaluation advised. BOWEL AND MESENTERY: Colon: no evidence of diverticulitis.. Inflammatory changes are seen in the right side of the abdomen anterior to the Gerota with the tip of the appendix seen in the area. No definite inflammatory basurto es seen in the adjacent:. Follow-up and clinical correlation advised. With the appendix seen in the a sanjay although the proximal appendix is not inflamed. Small Bowel: Normal. No obstruction. Peritoneum/mesentery: No free air or free fluid. No mesenteric lymphadenopathy. RETROPERITONEUM: Mild atheromatous disease of the abdominal aorta. No retroperitoneal lymphadenopat hy. Abnormality lymph nodes are noted with the largest measures 1.2 cm. Prominent vein is seen extending from the anal area to the archive brain most likely collateral vein. MUSCULOSKELETAL: Superficial soft tissues: Divarication of the rectus muscles is seen with bowel seen in the area. Oth erwise, The superficial soft tissues are normal. Bones: Age appropriate degenerative changes of the spine. IMPRESSION: 1. Stone in the right kidney lower pole with hydronephrotic changes. Bilateral renal scarring. Small left kidney. 2. Splenomegaly. Varices are seen around the lower esophagus. Prominent vessels extending from the n richie to the anal area of the portal vein. 3. Inflammatory changes anterior to the right Gerota fascia with the tip of the appendix in the are a. No inflammatory changes seen in the adjacent colon Clinical correlation and follow-up advised. Reviewed, dictated and finalized at location A. [facility] [employer] IMPRESSION: 1. Stone in the right kidney lower pole with hydronephrotic changes. Bilateral renal scarring. Small left kidney. 2. Splenomegaly. Varices are seen around the lower esophagus. Prominent vessel s extending from the neck to the anal area of the portal vein. 3. Inflammatory changes anterior to the right Gerota fascia with the tip of t he appendix in the area. No inflammatory changes seen in the adjacent colon Cli nical correlation and follow-up advised.
[2024-07-14 11:18] VITALS: BP 102/62; PULSE 100; RESP 18; TEMP 36.6; O2SAT 99
[2024-07-14 12:02] LABS: Eosinophils Percent Auto 0.3 % (0-4.4); Hematocrit 38.8 % (37.0-47.0); Immature Granulocyte Absolute 0.01 K/mm3 (0.00-0.031); Immature Granulocyte Percent A 0.3 % (0-0.5); Immature Platelet Fraction Pct 4.1 % (0.9-11.2); Lymphocytes Absolute Auto 0.72 K/mm3 (0.9-3.2); Lymphocytes Percent Auto 20.3 % (18.3-44.2); Mean Corpuscular HGB Conc 33.5 g/dl (32-36); Mean Corpuscular Hemoglobin 32.3 pg (26-34); Mean Corpuscular Volume 96.5 fl (80-100); Mean Platelet Volume 10.6 fl (7.4-10.4); Monocytes Absolute Auto 0.4 K/mm3 (0.1-0.6); Neutrophils Absolute Auto 2.4 K/mm3 (1.3-6.7); Neutrophils Percent Auto 68.1 % (45.5-73.1); Platelet Count Result 42 k/mm3 (150-375); Red Blood Count 4.02 M/mm3 (4.2-5.4); White Blood Count 3.6 K/mm3 (4.5-10.0)
[2024-07-14 12:07] LABS: Alanine Aminotransferase 48 U/L (6-35); Albumin Level 4.1 g/dL (3.5-5.1); Alkaline Phosphatase 110 U/L (38-126); Anion Gap 13 mmol/L (4-12); Aspartate Amino Transferase 49 U/L (14-36); Bilirubin,Total 1.4 mg/dL (0.2-1.3); Blood Urea Nitrogen 29 mg/dL (7-17); Calcium 8.6 mg/dL (8.4-10.2); Carbon Dioxide 21 mmol/L (22-30); Chloride 100 mmol/L (98-107); Estimated CRCL calculation 45 ml/min; Estimated Glomerular Filt Rate > 60; Glucose 206 mg/dL (65-110); Lipase 43 U/L (23-300); Potassium 4.5 mmol/L (3.4-5.0); Sodium 134 mmol/L (137-145)
[2024-07-14] MEDS: SODIUM CHLORIDE 0.9% IV 1,000 ML 999 ML IV CONT (12:39)
[2024-07-14 12:45] LABS: BEDSIDEPREGUCG Negative (Negative)
[2024-07-14 12:59] LABS: Add Urine Microscopic? YES; Appearance Urine Cloudy (Clear); Bacteria Urine 4+ /hpf; Bilirubin Urine Negative (Negative); Blood Urine Trace (Negative); Color Urine Yellow (Yellow); Glucose Urine UA Negative (Negative); Ketones Urine Negative (Negative); Leukocyte Esterase Ur 2+ LEU/UL (Negative); Nitrate Urine Positive (Negative); Protein Urine 2+ mg/dL (Negative); RBC Urine 0-2 /hpf (0-2); Specific Grav Ur 1.015 (1.001-1.035); Squamous Epithelial Cell Urine None Seen /hpf (Few); Urobilinogen Urine 0.2 mg/dL (<2.0); WBC Urine >100 /hpf (0-3); pH Urine 5.5 (5.0-9.0)
[2024-07-14 14:24] VITALS: BP 140/73; PULSE 83; RESP 18; O2SAT 97
--- NOTE | 2024-07-14 15:34 | ED.NAVMDI ---
HPI - Nausea/Vomiting/Diarrhea General Chief complaint: Nausea/Vomiting/Diarrhea Stated complaint: diarrhea, flank pain, fever, nausea Time Seen by Provider: 07/14/24 12:04 Source: patient and family Mode of arrival: ambulatory Limitations: no limitations History of Present Illness HPI Narrative: 53-year-old with a history of hypertension diabetes, cirrhosis of the liver with esophageal varices presents to the ER with the complaints of nausea, vomiting, diarrhea for last 2 days. states that she is barely drinking or eating. Patient denies having any fever. No history of blood in the stool or black color stool. No other family member has a similar illness. She denies taking any recent antibiotics. She also states that her urine is dark in color. He has history of kidney stones the MD elicited complaint: nausea and vomiting Onset (ago): day(s) (2) Description of vomiting: watery Description of diarrhea: watery Location of pain: diffuse Radiation: diffuse Pain consistency: intermittent Severity: moderate Exacerbating factors: eating Associated symptoms: denies other symptoms Related Data Allergies Allergy/AdvReac Type Severity Reaction Status Date / Time adhesive tape Allergy Itching Verified 04/12/24 15:13 Review of Systems Review of Systems: All systems reviewed & are unremarkable except as noted in HPI and below Constitutional: Constitutional: Reports no additional constitutional complaints Eyes: Eyes: Reports no additional eye complaints ENT: Reports system reviewed and no additional complaints, except as documented Cardiovascular: Cardiovascular: Reports no additional cardiovascular complaints Respiratory: Respiratory: Reports no additional respiratory complaints Genitourinary: Genitourinary: Reports as per HPI Musculoskeletal: Musculoskeletal: Reports no additional musculoskeletal complaints Neurologic: Reports system reviewed and no additional complaints, except as documented PMFSH Past Medical History Medical History Adenomatous colon polyp Diarrhea Esophageal varices determined by endoscopy Irritable bowel syndrome with diarrhea Gastroparesis Ataxia Chronic pain Primary insomnia Cirrhosis Thrombocytopenia Essential hypertension Anxiety History of Helicobacter pylori infection Lung nodules Neuropathy Tobacco abuse Irritable bowel syndrome with constipation Depression Hyperlipidemia Emphysema lung Vitamin D deficiency Alcohol abuse Fatty liver Surgical History Surgical History H/O endoscopy History of hysterectomy History of section Family History Family History Father Hypertension Family history of throat cancer Family history of heart disease in male family member before age 55 Mother Cerebrovascular accident Pancreatic cancer Diabetes mellitus Grandparent Carcinoma of colon Sibling Heart disease Lupus Acute myocardial infarction Other ADD (attention deficit disorder) Alcoholism Asthma COPD (chronic obstructive pulmonary disease) Cancer Glaucoma Lung disease Osteoporosis Social History Social History Social History: Surrogate medical decision maker: Delta Valenzuela, spouse. Code status: Full code. Smoking packs per day: 1 Smoking cigarettes per day: 20.0 Years smoked: 8 Smoking pack-years: 8.00 Smoking status: Former smoker Tobacco type: cigarettes and e-cigarettes/vaping Smokeless tobacco user: other Second hand tobacco smoke exposure: No Additional smoking assessment comments: continues to vape Alcohol intake: former Drinks per week: 21 Alcohol use details: 10-12 drinks vodka per day, quit 2022 Substance use: never Substance use type: does not use Do You Feel Safe in your Home?: Yes Lack of Transportation: No Lack of Food: Never True Current Housing: I Have Housing Concerned About Future Housing: No Difficulty Paying Gas/Electric Bills: No Difficulty Paying for Meds: No Currently Unemployed: No Education: High School Diploma/GED Difficulty w/ Childcare or Family Care: No Living arrangements: with family Additional living arrangements comments: Lives with spouse Delta in [place]. Occupation/Education: occupation Additional occupation/education comments: [employer] Gender identity (if verbalized by the patient): Female Spiritual care concerns: No Exam Narrative: GENERAL: Well-appearing, well-nourished, and in no acute distress. HEAD: Normocephalic, atraumatic. EYES: PERRLA and EOMI. ENT: Nares clear, no rhinorrhea or epistaxis. Mucous membranes moist. NECK: Supple. CHEST: Clear to auscultation. No respiratory distress. HEART: Regular rate and rhythm. No murmur heard. Normal peripheral pulses. ABDOMEN: Soft, nontender, nondistended, normal active bowel sounds. EXTREMITIES: Normal range of motion. No edema. SKIN: Warm, dry, no rash. NEURO: No focal deficits. Alert and oriented x3. PSYCH: Normal mood and affect. Course Course Emergency Course: Health patient was given IV fluids. I did inform her about her lab work, CT findings. She states that she is feeling much better. Informed her to take antibiotic as prescribed for her UTI. Drink more fluids take Zofran as needed for nausea Vital Signs Vital signs: Vital Signs Temperature 36.6 C 07/14/24 11:18 Pulse Rate 100 07/14/24 11:18 Respiratory Rate 18 07/14/24 11:18 Blood Pressure 102/62 07/14/24 11:18 Pulse Oximetry 99 07/14/24 11:18 Oxygen Delivery Room Air 07/14/24 11:18 Temperature 36.6 C 07/14/24 11:18 Pulse Rate 83 07/14/24 14:24 Respiratory Rate 18 07/14/24 14:24 Blood Pressure 140/73 07/14/24 14:24 Pulse Oximetry 97 07/14/24 14:24 Oxygen Delivery Room Air 07/14/24 11:18 MDM - Nausea/Vomiting/Diarrhea Differential Diagnosis Differential diagnosis: Likely food poisoning, gastroenteritis and dehydration Medical Records Attestation: I reviewed the patient's medical records. Lab Data Attestation: I reviewed the patient's lab results. 07/14/24 11:33 07/14/24 11:33 Labs: Lab Results 07/14/24 07/14/24 07/14/24 Range/Units 11:33 12:41 12:43 WBC 3.6 L (4.5-10.0) K/mm3 RBC 4.02 L (4.2-5.4) M/mm3 Hgb 13.0 (12.0-15.0) g/dL Hct 38.8 (37.0-47.0) % MCV 96.5 (80-100) fl MCH 32.3 (26-34) pg MCHC 33.5 (32-36) g/dl RDW 14.0 (11.5-14.5) % Plt Count 42 L (150-375) k/mm3 MPV 10.6 H (7.4-10.4) fl Immature Gran % (Auto) 0.3 (0-0.5) % Neut % (Auto) 68.1 (45.5-73.1) % Lymph % (Auto) 20.3 (18.3-44.2) % [place] % (Auto) 11.0 H (2.6-8.5) % Eos % (Auto) 0.3 (0-4.4) % Baso % (Auto) 0.0 L (0.2-1.2) % Lymph # (Auto) 0.72 L (0.9-3.2) K/mm3 [place] # (Auto) 0.4 (0.1-0.6) K/mm3 Eos # (Auto) 0.0 (0-0.3) K/mm3 Baso # (Auto) 0.0 (0.0-0.1) K/mm3 Abs Immat Gran (auto) 0.01 (0.00-0.031) K/mm3 Absolute Neuts (auto) 2.4 (1.3-6.7) K/mm3 Absolute Nucleated RBC 0.000 (0.0-0.012) K/mm3 Nucleated RBC % 0.0 (0.0-0.2) % % Immature Plt Fraction 4.1 (0.9-11.2) % Sodium 134 L (137-145) mmol/L Potassium 4.5 (3.4-5.0) mmol/L Chloride 100 (98-107) mmol/L Carbon Dioxide 21 L (22-30) mmol/L Anion Gap 13 H (4-12) mmol/L BUN 29 H (7-17) mg/dL Creatinine 0.92 (0.7-1.0) mg/dL Estim Creat Clear Calc 45 ml/min Estimated GFR > 60 (59 - ) Glucose 206 H (65-110) mg/dL Calcium 8.6 (8.4-10.2) mg/dL Total Bilirubin 1.4 H (0.2-1.3) mg/dL AST 49 H (14-36) U/L ALT 48 H (6-35) U/L Alkaline Phosphatase 110 (38-126) U/L Total Protein 7.0 (6.3-8.2) g/dL Albumin 4.1 (3.5-5.1) g/dL Lipase 43 (23-300) U/L Urine Color Yellow (Yellow) Urine Appearance Cloudy H (Clear) Urine pH 5.5 (5.0-9.0) Ur Specific [place] 1.015 (1.001-1.035) Urine Protein 2+ H (Negative) mg/dL Urine Glucose (UA) Negative (Negative) mg/dL Urine Ketones Negative (Negative) mg/dL Ur Blood (Man) Trace (Negative) Urine Nitrate Positive H (Negative) Urine Bilirubin Negative (Negative) Urine Urobilinogen 0.2 (<2.0) mg/dL Leukocyte Esterase Rfl 2+ H (Negative) AROLDO/UL Urine RBC 0-2 (0-2) /hpf Urine WBC >100 H (0-3) /hpf Ur Squamous Epith Cells None seen (Few) /hpf Urine Bacteria 4+ H /hpf Urine Casts 3-5 POC Urine HCG, Qual Negative (Negative) Imaging Data Radiologist's impression: ITS Impressions Abdomen/Pelvis CT 07/14/24 13:38 IMPRESSION: 1. Stone in the right kidney lower pole with hydronephrotic changes. Bilateral renal scarring. Small left kidney. 2. Splenomegaly. Varices are seen around the lower esophagus. Prominent vessels extending from the neck to the anal area of the portal vein. 3. Inflammatory changes anterior to the right Gerota fascia with the tip of the appendix in the area. No inflammatory changes seen in the adjacent colon Clinical correlation and follow-up advised. Discharge Plan Discharge Clinical Impression: Gastroenteritis UTI (urinary tract infection) Qualifiers: Urinary tract infection type: site unspecified Hematuria presence: without hematuria Qualified Code(s): N39.0 - Urinary tract infection, site not specified Patient Disposition: Home, Self-Care Condition: Stable Instructions: Urinary Tract Infection in Women (DC), Gastroenteritis (ED) Additional Instructions: Take antibiotic as prescribed. Drink more fluids, rest, follow-up with your primary doctor in 1 week Patient Language: Congolese Prescriptions: New ciprofloxacin HCl [Cipro] 500 mg tablet 500 mg PO Q12H Qty: 10 0RF ondansetron 4 mg tablet,disintegrating 4 mg PO Q6-8H PRN (Reason: nausea and vomiting) Qty: 14 0RF No Action Jardiance 25 mg tablet 25 mg PO DAILY Qty: 90 3RF (DME) FreeStyle Lite Strips Strip See Rx Instructions .ROUTE .MEDSUPPLY Qty: 100 5RF Rx Instructions: As directed QAC and QHS (DME) blood-glucose meter [FreeStyle Lite Meter] Kit See Rx Instructions .Route Qty: 1 0RF Rx Instructions: As directed metoclopramide HCl [Reglan] 10 mg tablet 10 mg PO Q6H PRN (Reason: nausea and vomiting) Qty: 90 5RF ondansetron HCl 4 mg tablet 4 mg PO Q8H PRN (Reason: nausea and vomiting) Qty: 90 5RF propranolol 10 mg tablet See Rx Instructions .ROUTE .COMPLEX Qty: 180 2RF Dose Instruction: TAKE 1 TABLET BY MOUTH EVERY 12 HOURS Rx Instructions: TAKE 1 TABLET BY MOUTH EVERY 12 HOURS folic acid 1 mg tablet See Rx Instructions .ROUTE .COMPLEX Qty: 90 1RF Dose Instruction: TAKE 1 TABLET BY MOUTH EVERY DAY Rx Instructions: TAKE 1 TABLET BY MOUTH EVERY DAY furosemide 40 mg tablet 40 mg PO DAILY Qty: 90 2RF duloxetine 60 mg capsule,delayed release(DR/EC) See Rx Instructions .ROUTE .COMPLEX Qty: 90 1RF Dose Instruction: TAKE 1 CAPSULE BY MOUTH DAILY Rx Instructions: TAKE 1 CAPSULE BY MOUTH DAILY thiamine HCl (vitamin B1) [Vitamin B-1] 100 mg tablet 100 mg PO QAM Qty: 90 1RF (DME) pen needle, diabetic 32 gauge x 5/32 needle See Rx Instructions .ROUTE .MEDSUPPLY Qty: 200 2RF Rx Instructions: USE TO INJECT INSULIN 5 TIMES DAILY ferrous sulfate 325 mg (65 mg iron) tablet See Rx Instructions .ROUTE .COMPLEX Qty: 90 0RF Dose Instruction: TAKE 1 TABLET BY MOUTH EVERY DAY Rx Instructions: TAKE 1 TABLET BY MOUTH EVERY DAY insulin glargine-yfgn [Semglee(insulin glarg-yfgn)Pen] 100 unit/mL (3 mL) insulin pen 45 unit subcut DAILY Qty: 15 1RF gabapentin 300 mg capsule See Rx Instructions .ROUTE .COMPLEX Qty: 270 2RF Dose Instruction: TAKE 3 CAPSULES BY MOUTH 3 TIMES A DAY Rx Instructions: TAKE 3 CAPSULES BY MOUTH 3 TIMES A DAY omeprazole 40 mg capsule,delayed release(DR/EC) See Rx Instructions .ROUTE .COMPLEX Qty: 90 3RF Dose Instruction: TAKE 1 CAPSULE BY MOUTH EVERY DAY Rx Instructions: TAKE 1 CAPSULE BY MOUTH EVERY DAY Humalog KwikPen Insulin 200 unit/mL (3 mL) insulin pen 1 sliding scale dose subcut USEASDIRECTD Qty: 6 0RF Rx Instructions: Pt to use TID with sliding scale regimen. Max dose of 80units Creon 24,000-76,000 -120,000 unit capsule,delayed release(DR/EC) 1 cap PO .2 with meals 1 w sna Qty: 90 0RF Rx Instructions: administer with meals and/or snacks trazodone 50 mg tablet See Rx Instructions .ROUTE .COMPLEX Qty: 90 0RF Dose Instruction: TAKE 1 TABLET BY MOUTH EVERYDAY AT BEDTIME Rx Instructions: TAKE 1 TABLET BY MOUTH EVERYDAY AT BEDTIME (DME) FreeStyle Margy 3 Plus Sensor Device See Rx Instructions .Route Qty: 2 2RF Rx Instructions: As directed to use with SSI QID Follow-up/Referrals: Juan Guerrero MD [Primary Care Provider] - Time of Disposition: 15:44
[2024-07-14 15:56] VITALS: BP 120/73; PULSE 70; RESP 20; TEMP 36.4; O2SAT 97
== END 2024-07-14 15:58 | disposition home or self-care (01) ==
PROVIDERS: Emergency Medicine; Emergency Provider Family Medicine; PCP Family Medicine
DX: K52.9 Noninfective gastroenteritis and colitis, unspecified (principal); N39.0 Urinary tract infection, site not specified; I10 Essential (primary) hypertension; E11.9 Type 2 diabetes mellitus without complications; K74.60 Unspecified cirrhosis of liver; F17.290 Nicotine dependence, other tobacco product, uncomplicated
CPT/HCPCS: 36415; 74177; 80053; 81001; 81025; 83690; 85025; 85055; 87086; 87186; 96360; 99284; J7030; Q9967

== ENCOUNTER 2024-07-19 16:42 | Outpatient (CLI) | payer OTHER, SELFPAY ==
[2024-07-19 17:02] LABS: Hematocrit 34.8 % (37.0-47.0); Hemoglobin 11.5 g/dL (12.0-15.0); Mean Corpuscular Hemoglobin 31.4 pg (26-34); Mean Corpuscular Volume 95.1 fl (80-100); Mean Platelet Volume 10.8 fl (7.4-10.4); Platelet Count Result 57 k/mm3 (150-375); Red Blood Count 3.66 M/mm3 (4.2-5.4); Red Cell Distribution Width 13.9 % (11.5-14.5)
[2024-07-19 17:06] LABS: White Blood Count 4.3 K/mm3 (4.5-10.0)
[2024-07-19 17:15] LABS: Alanine Aminotransferase 35 U/L (6-35); Albumin Level 4.1 g/dL (3.5-5.1); Alkaline Phosphatase 134 U/L (38-126); Anion Gap 10 mmol/L (4-12); Aspartate Amino Transferase 42 U/L (14-36); Bilirubin,Total 1.3 mg/dL (0.2-1.3); Blood Urea Nitrogen 15 mg/dL (7-17); Calcium 8.5 mg/dL (8.4-10.2); Carbon Dioxide 28 mmol/L (22-30); Chloride 98 mmol/L (98-107); Estimated Glomerular Filt Rate > 60; Glucose 112 mg/dL (65-110); Sodium 136 mmol/L (137-145)
[2024-07-19 17:23] LABS: INR 1.1; Prothrombin Time 14.4 Seconds (11.1-14.7)
== END 2024-07-19 16:43 | disposition home or self-care (01) ==
LOC: ANHLAB 16:43
PROVIDERS: PCP Family Medicine; Visit Provider Internal Medicine Gastroenterology
DX: K70.31 Alcoholic cirrhosis of liver with ascites (principal)
CPT/HCPCS: 36415; 80053; 85027; 85610

== ENCOUNTER 2024-09-27 02:02 | Day surgery (SDC) | payer OTHER, SELFPAY ==
[2024-09-20 09:14] VITALS: BMI 23.4
--- NOTE | 2024-09-24 18:50 | WPDANESEPP ---
Anes - Eval Pre Procedure Procedure: Operation Date: 09/27/24 07:30 Proposed Procedures p Esophagogastroduodenoscopy - Tre Esparza MD Date/Time: 09/24/24 18:50 Pre Op Diagnosis: esophageal varices without bleeding Patient Data Age: 54 Gender: F Height: 1.52 m Weight: 54.5 kg Allergies Allergy/AdvReac Type Severity Reaction Status Date / Time adhesive tape Allergy Itching Verified 09/20/24 09:10 Home Medications ?Medication ?Instructions ?Recorded ?Confirmed ?Type blood sugar diagnostic (FreeStyle #100 ea 10/28/22 07/28/24 Rx Lite Strips) blood-glucose meter (FreeStyle #1 ea 10/29/22 07/28/24 Rx Lite Meter kit) metoclopramide HCl 10 mg tablet 10 mg PO Q6H PRN nausea and 02/26/23 09/20/24 Rx (Reglan) vomiting #90 tabs propranolol 10 mg tablet See Rx Instructions .Route 10/03/23 09/20/24 Rx .COMPLEX #180 tabs furosemide 40 mg tablet 40 mg PO DAILY #90 tabs 03/09/24 09/20/24 Rx insulin glargine-yfgn 100 unit/mL 45 unit (0.45 mL) subcut DAILY #15 05/18/24 09/20/24 Rx (3 mL) subcutaneous pen (Semglee mL (insulin glargine-yfgn) Pen) qetniy-kpemeewg-pwotqxg 1 cap PO .2 with meals 1 w sna #90 07/01/24 09/20/24 Rx 24,000-76,000-120,000 unit caps capsule,delayed rel (Creon) blood-glucose sensor (FreeStyle #2 ea 07/13/24 07/28/24 Rx Margy 3 Plus Sensor device) ondansetron 4 mg disintegrating 4 mg PO Q6-8H PRN nausea and 07/14/24 09/20/24 Rx tablet vomiting #14 tabs folic acid 1 mg tablet See Rx Instructions .Route 07/18/24 09/20/24 Rx .COMPLEX #90 tabs duloxetine 60 mg capsule,delayed See Rx Instructions .Route 07/31/24 09/20/24 Rx release .COMPLEX #90 caps trazodone 50 mg tablet See Rx Instructions .Route 07/31/24 09/20/24 Rx .COMPLEX #90 tabs diphenoxylate-atropine 2.5 1 tablet PO TID #30 tabs 08/03/24 09/20/24 Rx mg-0.025 mg tablet (Lomotil) pen needle, diabetic 32 gauge x #200 ea 08/08/24 Rx thiamine HCl (vitamin B1) 100 mg 100 mg PO QAM #90 tabs 08/08/24 09/20/24 Rx tablet (Vitamin B-1) ferrous sulfate 325 mg (65 mg See Rx Instructions .Route 08/23/24 09/20/24 Rx iron) tablet .COMPLEX #90 tabs gabapentin 300 mg capsule See Rx Instructions .Route 08/23/24 09/20/24 Rx .COMPLEX #270 caps insulin lispro 200 unit/mL (3 mL) 1 sliding scale dose subcut 08/23/24 09/20/24 Rx subcutaneous pen (Humalog KwikPen USEASDIRECTD #6 mL U-200 Insulin) omeprazole 40 mg capsule,delayed See Rx Instructions .Route 08/23/24 09/20/24 Rx release .COMPLEX #90 caps Patient hx anesthesia problems: none Family hx anesthesia problems: none Results Review: All pre-operative results and documents have been reviewed as part of the pre-operative evaluation. [facility] Past Medical History Medical History (Updated 09/24/24 @ 18:53 by Carmen Cantu CRNA) Diabetes type 2, controlled Palpitations Peripheral neuropathy COPD (chronic obstructive pulmonary disease) with chronic bronchitis HTN (hypertension) Arthritis Adenomatous colon polyp Diarrhea Esophageal varices determined by endoscopy Irritable bowel syndrome with diarrhea Gastroparesis Ataxia Chronic pain Primary insomnia Cirrhosis Thrombocytopenia Essential hypertension Anxiety History of Helicobacter pylori infection Lung nodules Neuropathy Tobacco abuse Irritable bowel syndrome with constipation Depression Hyperlipidemia Emphysema lung Vitamin D deficiency Alcohol abuse Fatty liver Surgical History Surgical History H/O endoscopy History of hysterectomy History of section Family History Family History Father Hypertension Family history of throat cancer Family history of heart disease in male family member before age 55 Mother Cerebrovascular accident Pancreatic cancer Diabetes mellitus Grandparent Carcinoma of colon Sibling Heart disease Lupus Acute myocardial infarction Other ADD (attention deficit disorder) Alcoholism Asthma COPD (chronic obstructive pulmonary disease) Cancer Glaucoma Lung disease Osteoporosis Social History Social History Social History: Surrogate medical decision maker: Delta Valenzuela, spouse. Code status: Full code. Smoking packs per day: 1 Smoking cigarettes per day: 20.0 Years smoked: 8 Smoking pack-years: 8.00 Smoking status: Current every day smoker Tobacco type: e-cigarettes/vaping Smokeless tobacco user: other Second hand tobacco smoke exposure: No Additional smoking assessment comments: continues to vape Alcohol intake: former Drinks per week: 21 Alcohol use details: 10-12 drinks vodka per day, quit 2022 Substance use: never Substance use type: does not use Do You Feel Safe in your Home?: Yes Lack of Transportation: No Lack of Food: Never True Current Housing: I Have Housing Concerned About Future Housing: No Difficulty Paying Gas/Electric Bills: No Difficulty Paying for Meds: No Currently Unemployed: No Education: High School Diploma/GED Difficulty w/ Childcare or Family Care: No Living arrangements: with family Additional living arrangements comments: Lives with spouse Delta in [place]. Occupation/Education: occupation Additional occupation/education comments: [employer] Gender identity (if verbalized by the patient): Female Spiritual care concerns: No Exam Day of Procedure 09/24/24 18:50
--- OUTSIDE RECORDS SUMMARY | 2024-09-27 02:06 | XMS_ITS | Clinical Summary ---
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 Gender Identity Not on file Sexual Orientation Not on file Plan of Treatment Health Maintenance Due Date Last Done Comments Hepatitis C Virus (HCV) Screening 1972 TdaP Immunization 1972 Hepatitis B Immunization (1 of 3 - 19+ 3-dose series) 09/04/1991 Pap Smear 1993 Cervical Cancer Screening (CCS) 2002 HPV/Cotest 2002 Colonoscopy 2017 Colorectal Cancer Screening 2017 Cologuard 2022 Immunochemical Fecal Occult Blood 2022 Mammogram 2022 Pneumococcal Immunization (5 0+ years) (1 of 1 - PCV) 2022 Zoster Immunization (1 of 2) 2022 Influenza Immunization (#1) 2024 SARS-COV-2 Immunization ( - season) 2024 12/06/2020, 11/15/2020 Respiratory Syncytial Virus (RSV) Immunization (Adult) (1 - 1-dose 75+ series) 09/04/2047 Meningococcal Immunization (ACWY) Aged Out No longer eligible b ased on patient's age to complete this topic Pneumococcal Immunization Combined Aged Out No longer eligible b ased on patient's age to complete this topic Rotavirus Immunization Aged Out No lo nger eligible based on patient's age to complete this topic
--- OUTSIDE RECORDS SUMMARY | 2024-09-27 02:06 | XMS_ITS | Clinical Summary ---
Author Organization [facility] [employer] Address [address] [address] Care Team Providers Care Saw Edge Fuser Circular Name Role Phone Juan Guerrero MD Primary Care Provider [phone] Source Comments [facility] [employer],non-owned Affiliates and Associated Physician Practices is amultiple site organization consisting of ambulatory clinics and hospital sitesin [place], [place], [place] and [place]. This disclosure is being madepursuant to the Care Everywhere program and may not contain all information available regarding this patient. Last updated 18.NCR [employer] Allergies No known active allergies Medications * Be aware that medications may not be up to date on this document. Alwaysverify current medications with the patient. Medication Sig Dispensed Refills Start Date End Date Status DULoxetine (Cymbalta) 30 MG capsule Take 1 (one) capsule by mouth once daily 07/28/2023 Active ferrous sulfate 325 (65 FE) MG tablet Take 1 (one) tablet by mouth daily with breakfast 07/25/2023 Active gabapentin (Neurontin) 300 MG capsule TAKE 3 CAPSULES BY MOUTH 3 TIMES A DAY 08/02/2023 Active metoclopramide (Reglan) 10 MG tablet Take 1 (one) tablet by mouth every 6 hours as needed For nausea and vomiting. 02/26/2023 Active omeprazole (PriLOSEC) 20 MG capsule Take 1 (one) capsule by mouth once daily 11/22/2022 Active ondansetron (Zofran) 4 MG tablet Take 1 (one) tablet by mouth every 8 hours as needed for nausea and vomiting. 02/27/2023 Active propranolol (Inderal) 10 MG tablet Take 1 (one) tablet by mouth every 12 hours 06/03/2023 Active traZODone (Desyrel) 50 MG tablet Take 1 (one) tablet by mouth at bedtime 07/25/2023 Active insulin lispro (HumaLOG;ADMelog) 100 UNIT/ML pen Inject subcutaneously as directed Sliding scale Active insulin glargine (Lantus/Semglee) 100 units/mL pen Inject 10 (ten) Units subcutaneously at bedtime Active pancrelipase (Creon) 47579-56271 units capsule Take 2 (two) capsules by mouth 4 times daily with meals Active Active Problems Problem Noted Date Diagnosed Date Type 2 diabetes mellitus without complications 0 07/01/2017 Alcoholic hepatitis without ascites 05/28/2017 Uncomplicated alcohol abuse 05/28/2017 Abnormal levels of other serum enzymes 7 Elevated liver enzymes 05/27/2017 Family History Medical History Relation Name Comments Cancer - Other Father Status: Decea sed Hypertension Father CVA Mother Status: Alive Dementia Mother Diabetes - Type 2 Mother Hypertension Mother Relation Name Status Comments Father Mother Social History Tobacco Use Types Packs/Day Years Used Date Smoking Tobacco: Every Day Smokeless Tobacco: Former Quit: 2013 Comments:Vapes Alcohol Use Standard Drinks/Week Comments Not Currently 35 (1 standard drink = 0.6 oz pure alcohol) ABSTINENT SINCE , PREVIOUSLY HEAVY Sex and Gender Information Value Date Recorded Sex Assigned at Not on file Gender Identity Not on file Sexual Orientation Not on file Last Filed Vital Signs Vital Sign Reading Time Taken Comments Blood Pressure 102/71 04/13/2024 10:34 AM CDT Pulse 93 04/13/2024 10:34 AM CDT Temperature 36.3 C (97.4 F) 04/13/2024 10:34 AM CDT Respiratory Rate 12 09/29/2023 8:59 AM CDT Oxygen Saturation 100% 04/13/2024 10:34 AM CDT Inhaled Oxygen Concentration - - Weight 50.4 kg (111 lb 3.2 oz) 04/13/2024 10:34 AM CDT Height 152.4 cm (5') 04/13/2024 10:34 AM CDT Body Mass Index 21.72 04/13/2024 10:34 AM CDT Plan of Treatment Upcoming Encounters Date Type Department Care Team (Late st Contact Info) Description 10/12/2024 11:00 AM CDT Appointment [facility] [address] [place] [address] Ambrosio Sexton MD [address] [place] [address] [address] [place] [address] 10/12/2024 12:00 PM CDT Office Visit [facility] [address] [facility] [facility] [place] [address] Ambrosio Sexton MD [facility] [facility] [address] [place] [address] Health Maintenance Due Date Last Done Comments COLOGUARD (AGES 45-75) - COLON CA SCREENING 1972 COLON MONITORING 1972 COLONOSCOPY - COLON CA SCREENING 1972 CT COLONOGRAPHY - COLON CA SCREENING 1972 Colorectal Cancer Screening 1972 FIT - COLON CA SCREENING 1972 FLEX SIG - COLON CA SCREENING 1972 MAMMOGRAM 1972 PAP SMEAR 1972 HIV SCREENING 09/04/1987 DTAP/TDAP/TD VACCINES (1 - Tdap) 09/04/1991 HEPATITIS B VACCINE (1 of 3 - 19+ 3-dose series) 09/04/1991 PNEUMOCOCCAL VACCINE 50+ (1 of 2 - PCV) 09/04/1991 DIABETES-STATIN 2012 ZOSTER VACCINE (1 of 2) 2022 DIABETES RETINOPATHY SCREENING 08/11/2023 DIABETES-FOOT EXAM WITH MONOFILAMENT 08/11/2023 DIABETES-HGB A1C 08/11/2023 COVID-19 VACCINE (3 - 2023- season) 2024 12/06/2020, 11/15/2020 INFLUENZA VACCINE (#1) 2024 DEPRESSION SCREENING 06/30/2024 DIABETES - URINE PROTEIN SCREENING 06/30/2024 DIABETES-SERUM CREATININE 04/13/20252023, 09/29/2023, 08/11/2023, Additional history exists HEPATITIS C SCREENING Completed 08/11/2023, 017 HIB VACCINE Aged Out No longer eligi ble based on patient's age to complete this topic HPV VACCINE Aged Out No longer eligi ble based on patient's age to complete this topic MENINGOCOCCAL (Group B) VACCINE SHARED DECISION-MAKING Aged Out No longer eligible based on patient's age to complete this topic MENINGOCOCCAL GROUPS A/C/Y/W VACCINE Aged Out No longer eligible based on patient's age to complete this topic Goals Goal Patient Goal Type Associated Problems Recent Progress Patient-Stated? Author Medication Management General On track( 10:55 AM CDT) Dk Rodriguez, RN Note: Expected end date: Interventions: Take all medications as prescribed Let your doctor know right away about any changes in your medications Make sure to request a refill of your medication at least one week prior to your last dose Procedures Procedure Name Priority Date/Time Associated Diagnosis Comments COMPREHENSIVE METABOLIC PANEL Routine 04/13/2024 12:07 PM CDT Alcoholic cirrhosis of liver without ascites Sarcopenia Secondary esophageal varices without bleeding Ascites due to alcoholic cirrhosis Type 2 diabetes mellitus without complication, without long-term current use of insulin Thrombocytopenia HEPATITIS C ANTIBODY Routine 08/11/2023 12:57 PM HYDRAULIC RIVETER Alcoholic cirrhosis of liver without ascites Sarcopenia Secondary esophageal varices without bleeding Type 2 diabetes mellitus without complication, without long-term current use of insulin from Last 3 Months or Most Recently Relevant to Health Maintenance Results * (ABNORMAL) COMPREHENSIVE METABOLIC PANEL (04/13/2024 12:07 PM CDT) BUN 26 7 - 26 mg/dL 04/13/2024 1:08 PM [facility] Creatinine 1.09(H) 0.56 - 0.96 mg/dL 04/13/2024 1:08 PM [facility] Sodium 135(L) 136 - 145 mmol/L 04/13/2024 1:08 PM [facility] Potassium 4.5 3.5 - 4.5 mmol/L 04/13/2024 1:08 PM [facility] Chloride 101 98 - 107 mmol/L 04/13/2024 1:08 PM [facility] CO2 27 22 - 29 mmol/L 04/13/2024 1:08 PM [facility] Glucose 171(H) 70 - 115 mg/dL 04/13/2024 1:08 PM [facility] Calcium 9.7 8.4 - 10.2 mg/dL 04/13/2024 1:08 PM [facility] Protein Total 7.4 6.0 - 8.3 g/dL 04/13/2024 1:08 PM [facility] Albumin 4.4 3.4 - 5.0 g/dL 04/13/2024 1:08 PM [facility] Bilirubin Total 0.8 0.2 - 1.2 mg/dL 04/13/2024 1:08 PM [facility] Alkaline Phosphatase 115 40 - 150 U/L 04/13/2024 1:08 PM [facility] ALT 34 5 - 55 U/L 04/13/2024 1:08 PM [facility] AST 25 5 - 34 U/L 04/13/2024 1:08 PM [facility] Anion Gap 7 6 - 16 04/13/2024 1:08 PM [facility] BUN/Creatinine Ratio 24(H) 7 - 23 04/13/2024 1:08 PM [facility] Osmolality Calculated 289 275 - 295 mOsm/kg 04/13/2024 1:08 PM [facility] Albumin/Globulin Ratio 1.5 1.1 - 2.3 04/13/2024 1:08 PM [facility] eGFR by CKD-EPI 62(L) >=90 mL/min/1.7 3 m2 04/13/2024 1:08 PM [facility] Blood BLOOD SPECIMEN / Unknown Lab Venipuncture / Unknown 04/13/2024 12:07 PM CDT 04/13/2024 12:[address] [facility] Ambrosio Sexton MD LAB - CHEMISTR Y ORDERABLES [facility] [address] [place] [address], [facility] [phone] * HEPATITIS C ANTIBODY (08/11/2023 12:57 PM HYDRAULIC RIVETER) Hepatitis C Antibody Non-react yuniel Non-reac tive 08/11/2023 2:04 PM HYDRAULIC RIVETER [facility] Comment:Hepatitis C Antibody screen indicates no serologic evidence of past or current infection with Hepatitis C Virus. Patients with unexplained liver disease who are immunocompromised or suspected of having acute Hepatitis C infection may benefit from Nucleic Acid Test (AGATA) for Hepatitis C Viral RNA to confirm Hepatitis C status. Blood BLOOD SPECIMEN / Unknown Lab Venipuncture / Unknown 08/11/2023 12:57 PM HYDRAULIC RIVETER 08/11/2023 1:21 PM HYDRAULIC RIVETER Ambrosio Sexton MD LAB - CHEMISTR Y ORDERABLES [facility] [address] [place] [address], [facility] [phone] from Last 3 Months or Most Recently Relevant to Health Maintenance Care Teams Saw Edge Fuser Circular Relationship Specialty Start Date End Date Juan Guerrero MD [address] [place] [address] PCP - General 05/16/17
[2024-09-27 06:23] VITALS: BP 103/55; PULSE 88; RESP 20; TEMP 36; O2SAT 97; BMI 23.8
--- NOTE | 2024-09-27 06:30 | SUR.PREOP ---
Pt's blood sugar 200 per Dexcom.
[2024-09-27] MEDS: LACTATED RINGERS 1,000 ML 150 ML IV CONT (06:34)
--- NOTE | 2024-09-27 07:15 | P.PNAN_ITS ---
Anes - Initial Pre Proc Eval Procedure: Operation Date: 09/27/24 07:30 Proposed Procedures p Esophagogastroduodenoscopy - Tre Esparza MD Date/Time: 09/27/24 07:15 Surgeon: Tre Esparza MD Pre Op Diagnosis: esophageal varices without bleeding Patient Data Age: 54 Gender: F Height: 1.52 m Weight: 55.5 kg Last Vital Signs Temp 96.8 F L 09/27/24 06:23 Pulse 88 09/27/24 06:23 Resp 20 09/27/24 06:23 BP 103/55 L 09/27/24 06:23 Pulse Ox 97 09/27/24 06:23 O2 Del Method Room Air 09/27/24 06:23 Allergies Allergy/AdvReac Type Severity Reaction Status Date / Time adhesive tape Allergy Itching Verified 09/27/24 06:20 Home Medications ?Medication ?Instructions ?Recorded ?Confirmed ?Type blood sugar diagnostic (FreeStyle #100 ea 10/28/22 07/28/24 Rx Lite Strips) blood-glucose meter (FreeStyle #1 ea 10/29/22 07/28/24 Rx Lite Meter kit) metoclopramide HCl 10 mg tablet 10 mg PO Q6H PRN nausea and 02/26/23 09/20/24 Rx (Reglan) vomiting #90 tabs propranolol 10 mg tablet See Rx Instructions .Route 10/03/23 09/27/24 Rx .COMPLEX #180 tabs furosemide 40 mg tablet 40 mg PO DAILY #90 tabs 03/09/24 09/27/24 Rx insulin glargine-yfgn 100 unit/mL 45 unit (0.45 mL) subcut DAILY #15 05/18/24 09/27/24 Rx (3 mL) subcutaneous pen (Semglee mL (insulin glargine-yfgn) Pen) [id number] 1 cap PO .2 with meals 1 w sna #90 07/01/24 09/27/24 Rx 24,000-76,000-120,000 unit caps capsule,delayed rel (Creon) blood-glucose sensor (FreeStyle #2 ea 07/13/24 07/28/24 Rx Margy 3 Plus Sensor device) ondansetron 4 mg disintegrating 4 mg PO Q6-8H PRN nausea and 07/14/24 09/20/24 Rx tablet vomiting #14 tabs folic acid 1 mg tablet See Rx Instructions .Route 07/18/24 09/27/24 Rx .COMPLEX #90 tabs duloxetine 60 mg capsule,delayed See Rx Instructions .Route 07/31/24 09/27/24 Rx release .COMPLEX #90 caps trazodone 50 mg tablet See Rx Instructions .Route 07/31/24 09/27/24 Rx .COMPLEX #90 tabs pen needle, diabetic 32 gauge x #200 ea 08/08/24 Rx thiamine HCl (vitamin B1) 100 mg 100 mg PO QAM #90 tabs 08/08/24 09/27/24 Rx tablet (Vitamin B-1) ferrous sulfate 325 mg (65 mg See Rx Instructions .Route 08/23/24 09/27/24 Rx iron) tablet .COMPLEX #90 tabs gabapentin 300 mg capsule See Rx Instructions .Route 08/23/24 09/27/24 Rx .COMPLEX #270 caps insulin lispro 200 unit/mL (3 mL) 1 sliding scale dose subcut 08/23/24 09/27/24 Rx subcutaneous pen (Humalog KwikPen USEASDIRECTD #6 mL U-200 Insulin) omeprazole 40 mg capsule,delayed See Rx Instructions .Route 08/23/24 09/27/24 Rx release .COMPLEX #90 caps diphenoxylate-atropine 2.5 1 tablet PO TID #30 tabs 09/26/24 09/27/24 Rx mg-0.025 mg tablet (Lomotil) Patient hx anesthesia problems: none Family hx anesthesia problems: none Results Review: All pre-operative results and documents have been reviewed as part of the pre- operative evaluation. [facility] Past Medical History Medical History Diabetes type 2, controlled Palpitations Peripheral neuropathy COPD (chronic obstructive pulmonary disease) with chronic bronchitis HTN (hypertension) Arthritis Adenomatous colon polyp Diarrhea Esophageal varices determined by endoscopy Irritable bowel syndrome with diarrhea Gastroparesis Ataxia Chronic pain Primary insomnia Cirrhosis Thrombocytopenia Essential hypertension Anxiety History of Helicobacter pylori infection Lung nodules Neuropathy Tobacco abuse Irritable bowel syndrome with constipation Depression Hyperlipidemia Emphysema lung Vitamin D deficiency Alcohol abuse Fatty liver Surgical History Surgical History H/O endoscopy History of hysterectomy History of section Family History Family History Father Hypertension Family history of throat cancer Family history of heart disease in male family member before age 55 Mother Cerebrovascular accident Pancreatic cancer Diabetes mellitus Grandparent Carcinoma of colon Sibling Heart disease Lupus Acute myocardial infarction Other ADD (attention deficit disorder) Alcoholism Asthma COPD (chronic obstructive pulmonary disease) Cancer Glaucoma Lung disease Osteoporosis Social History Social History Social History: Surrogate medical decision maker: Delta Valenzuela, spouse. Code status: Full code. Smoking packs per day: 1 Smoking cigarettes per day: 20.0 Years smoked: 8 Smoking pack-years: 8.00 Smoking status: Current every day smoker Tobacco type: e-cigarettes/vaping Smokeless tobacco user: other Second hand tobacco smoke exposure: No Additional smoking assessment comments: continues to vape Alcohol intake: former Drinks per week: 21 Alcohol use details: 10-12 drinks vodka per day, quit 2022 Substance use: never Substance use type: does not use Do You Feel Safe in your Home?: Yes Lack of Transportation: No Lack of Food: Never True Current Housing: I Have Housing Concerned About Future Housing: No Difficulty Paying Gas/Electric Bills: No Difficulty Paying for Meds: No Currently Unemployed: No Education: High School Diploma/GED Difficulty w/ Childcare or Family Care: No Living arrangements: with family Additional living arrangements comments: Lives with spouse Delta in [place]. Occupation/Education: occupation Additional occupation/education comments: [employer] Gender identity (if verbalized by the patient): Female Spiritual care concerns: No Anes - Eval Final PreProcedure Day of Procedure 09/27/24 07:15 Patient weight: normal Lungs: normal air movement Airway: Mallampati scale class II and special considerations (Edentulous. ) Neurological: alert and oriented Last oral intake: >/= 8 hours ASA classification: IV Emergent: no Anesthetic plan: proceed Anesthesia type and monitoring: general GIVS and standard monitoring Results Review: All pre-operative results and documents have been reviewed as part of the pre- operative evaluation. DM fsbs 152, hx of ETOH use, vapes daily (she did this am prior to arrival), COPD, now for EGD for eval of varices. Informed Consent: The patient's anesthetic plan and its attendant risks and benefits were discussed with the patient/family/POA. Questions were solicited and answers provided to the satisfaction of the patient/family/POA.
--- NOTE | 2024-09-27 07:21 | PM.HPGS ---
History of Present Illness History of Present Illness Consent: Risks, benefits, and alternatives have been discussed and questions answered. Patient agrees to proceed with procedure. Chief complaint: esophageal varices without bleeding Narrative: Faiza Valenzuela is a 54 year old female with h/o nausea on zofran and reglan, also cirrhosis and last egd 2022 with small EV, using propranolol, recent CT scan showed varices. Review of Systems Review of Systems: All systems reviewed & are unremarkable except as noted in HPI and below PMFSH Past Medical History Medical History (Updated 09/27/24 @ 07:25 by Tre Esparza MD) Nausea Diabetes type 2, controlled Palpitations Peripheral neuropathy COPD (chronic obstructive pulmonary disease) with chronic bronchitis HTN (hypertension) Arthritis Adenomatous colon polyp Diarrhea Esophageal varices determined by endoscopy Irritable bowel syndrome with diarrhea Gastroparesis Ataxia Chronic pain Primary insomnia Cirrhosis Thrombocytopenia Essential hypertension Anxiety History of Helicobacter pylori infection Lung nodules Neuropathy Tobacco abuse Irritable bowel syndrome with constipation Depression Hyperlipidemia Emphysema lung Vitamin D deficiency Alcohol abuse Fatty liver Surgical History Surgical History H/O endoscopy History of hysterectomy History of section Family History Family History Father Hypertension Family history of throat cancer Family history of heart disease in male family member before age 55 Mother Cerebrovascular accident Pancreatic cancer Diabetes mellitus Grandparent Carcinoma of colon Sibling Heart disease Lupus Acute myocardial infarction Other ADD (attention deficit disorder) Alcoholism Asthma COPD (chronic obstructive pulmonary disease) Cancer Glaucoma Lung disease Osteoporosis Social History Social History Social History: Surrogate medical decision maker: Delta Valenzuela, spouse. Code status: Full code. Smoking packs per day: 1 Smoking cigarettes per day: 20.0 Years smoked: 8 Smoking pack-years: 8.00 Smoking status: Current every day smoker Tobacco type: e-cigarettes/vaping Smokeless tobacco user: other Second hand tobacco smoke exposure: No Additional smoking assessment comments: continues to vape Alcohol intake: former Drinks per week: 21 Alcohol use details: 10-12 drinks vodka per day, quit 2022 Substance use: never Substance use type: does not use Do You Feel Safe in your Home?: Yes Lack of Transportation: No Lack of Food: Never True Current Housing: I Have Housing Concerned About Future Housing: No Difficulty Paying Gas/Electric Bills: No Difficulty Paying for Meds: No Currently Unemployed: No Education: High School Diploma/GED Difficulty w/ Childcare or Family Care: No Living arrangements: with family Additional living arrangements comments: Lives with spouse Delta in [place]. Occupation/Education: occupation Additional occupation/education comments: [employer] Gender identity (if verbalized by the patient): Female Spiritual care concerns: No Meds Home Medications and Allergies Home Medications ?Medication ?Instructions ?Recorded ?Confirmed ?Type blood sugar diagnostic (FreeStyle #100 ea 10/28/22 07/28/24 Rx Lite Strips) blood-glucose meter (FreeStyle #1 ea 10/29/22 07/28/24 Rx Lite Meter kit) metoclopramide HCl 10 mg tablet 10 mg PO Q6H PRN nausea and 02/26/23 09/20/24 Rx (Reglan) vomiting #90 tabs propranolol 10 mg tablet See Rx Instructions .Route 10/03/23 09/27/24 Rx .COMPLEX #180 tabs furosemide 40 mg tablet 40 mg PO DAILY #90 tabs 03/09/24 09/27/24 Rx insulin glargine-yfgn 100 unit/mL 45 unit (0.45 mL) subcut DAILY #15 05/18/24 09/27/24 Rx (3 mL) subcutaneous pen (Semglee mL (insulin glargine-yfgn) Pen) asjiss-nlyrajdt-fkrxwii 1 cap PO .2 with meals 1 w sna #90 07/01/24 09/27/24 Rx 24,000-76,000-120,000 unit caps capsule,delayed rel (Creon) blood-glucose sensor (FreeStyle #2 ea 07/13/24 07/28/24 Rx Margy 3 Plus Sensor device) ondansetron 4 mg disintegrating 4 mg PO Q6-8H PRN nausea and 07/14/24 09/20/24 Rx tablet vomiting #14 tabs folic acid 1 mg tablet See Rx Instructions .Route 07/18/24 09/27/24 Rx .COMPLEX #90 tabs duloxetine 60 mg capsule,delayed See Rx Instructions .Route 07/31/24 09/27/24 Rx release .COMPLEX #90 caps trazodone 50 mg tablet See Rx Instructions .Route 07/31/24 09/27/24 Rx .COMPLEX #90 tabs pen needle, diabetic 32 gauge x #200 ea 08/08/24 Rx thiamine HCl (vitamin B1) 100 mg 100 mg PO QAM #90 tabs 08/08/24 09/27/24 Rx tablet (Vitamin B-1) ferrous sulfate 325 mg (65 mg See Rx Instructions .Route 08/23/24 09/27/24 Rx iron) tablet .COMPLEX #90 tabs gabapentin 300 mg capsule See Rx Instructions .Route 08/23/24 09/27/24 Rx .COMPLEX #270 caps insulin lispro 200 unit/mL (3 mL) 1 sliding scale dose subcut 08/23/24 09/27/24 Rx subcutaneous pen (Humalog KwikPen USEASDIRECTD #6 mL U-200 Insulin) omeprazole 40 mg capsule,delayed See Rx Instructions .Route 08/23/24 09/27/24 Rx release .COMPLEX #90 caps diphenoxylate-atropine 2.5 1 tablet PO TID #30 tabs 09/26/24 09/27/24 Rx mg-0.025 mg tablet (Lomotil) Allergies Allergy/AdvReac Type Severity Reaction Status Date / Time adhesive tape Allergy Itching Verified 09/27/24 06:20 Vital Signs Vital Signs - 24 hr 09/27/24 06:23 Temperature 96.8 F L Pulse Rate 88 Respiratory Rate 20 Blood Pressure 103/55 L Pulse Oximetry 97 Oxygen Delivery Room Air Exam Const: General: comfortable and no acute distress HENMT: Face/Nose/Sinus: Normal nares present Eyes: General: appearance normal, both eyes and all related structures Neck: Neck: no JVD Resp: Auscultation: clear to auscultation bilaterally Cardio: Rate: regular rate Rhythm: regular rhythm GI: Inspection: non-distended GI Palp: Yes Soft to palpation Skin: General skin exam: normal color Neuro: General: gait normal Speech: normal speech Extrem: General: normal to inspection Psych: Mental Status: mental status grossly normal Assessment and Plan Assessment and plan (1) Alcoholic cirrhosis of liver with ascites: Code(s): K70.31 - Alcoholic cirrhosis of liver with ascites Status: Acute Assessment and Plan: egd (2) Nausea: Code(s): R11.0 - Nausea Status: Acute
[2024-09-27 07:36] VITALS: BP 85/43; PULSE 73; RESP 14; O2SAT 98
[2024-09-27 07:46] VITALS: BP 94/50; PULSE 73; RESP 12; O2SAT 97
--- NOTE | 2024-09-27 07:46 | SUR.PHASEII ---
Glucose per dexcom 162 in recovery.
[2024-09-27 07:56] VITALS: BP 109/58; PULSE 78; RESP 18; O2SAT 97
== END 2024-09-27 08:11 | disposition home or self-care (01) ==
PROVIDERS: PCP Family Medicine; Visit Provider Internal Medicine Gastroenterology
PROC: 0DJ08ZZ Inspection of Upper Intestinal Tract, Via Natural or Artificial Opening Endoscopic (ICD-10-PCS; CPT 43235; principal; 2024-09-27 07:30)
DX: I85.00 Esophageal varices without bleeding (principal); K29.70 Gastritis, unspecified, without bleeding; E78.5 Hyperlipidemia, unspecified; I10 Essential (primary) hypertension; E55.9 Vitamin D deficiency, unspecified; E11.9 Type 2 diabetes mellitus without complications; F51.01 Primary insomnia; D69.6 Thrombocytopenia, unspecified; F41.9 Anxiety disorder, unspecified; K70.31 Alcoholic cirrhosis of liver with ascites; K58.2 Mixed irritable bowel syndrome; F32.A Depression, unspecified; J44.9 Chronic obstructive pulmonary disease, unspecified; R00.2 Palpitations; G62.9 Polyneuropathy, unspecified; M19.90 Unspecified osteoarthritis, unspecified site; R27.0 Ataxia, unspecified; G89.29 Other chronic pain; F17.290 Nicotine dependence, other tobacco product, uncomplicated; Z79.4 Long term (current) use of insulin; Z98.890 Other specified postprocedural states; Z86.0100 Personal history of colon polyps, unspecified; Z80.1 Family history of malignant neoplasm of trachea, bronchus and lung; Z80.0 Family history of malignant neoplasm of digestive organs; Z82.49 Family history of ischemic heart disease and other diseases of the circulatory system
CPT/HCPCS: 43235; J2003; J2704; J7120

== ENCOUNTER 2024-11-09 11:40 | Outpatient (CLI) | payer OTHER, SELFPAY ==
--- OUTSIDE RECORDS SUMMARY | 2024-11-09 11:53 | XMS_ITS | Clinical Summary ---
Author Organization [facility] Address [address] [place] [address] Care Team Providers Care Fruit Distributor Name Role Phone Juan Guerrero MD Primary Care Provider [phone] Source Comments [facility],non-owned Affiliates and Associated Physician Practices is amultiple site organization consisting of ambulatory clinics and hospital sitesin [place] and [place]. This disclosure is being madepursuant to the Care Everywhere program and may not contain all information available regarding this patient. Last updated 18.[employer] [facility] Allergies No known active allergies Medications * Be aware that medications may not be up to date on this document. Alwaysverify current medications with the patient. DULoxetine (Cymbalta) 30 MG capsule Take 1 (one) capsule by mouth once daily 4 Active ferrous sulfate 325 (65 FE) MG tablet Take 1 (one) tablet by mouth daily with breakfast 4 Active gabapentin (Neurontin) 300 MG capsule TAKE 3 CAPSULES BY MOUTH 3 TIMES A DAY 4 Active metoclopramide (Reglan) 10 MG tablet Take 1 (one) tablet by mouth every 6 hours as needed For nausea and vomiting. 3 Active omeprazole (PriLOSEC) 20 MG capsule Take 1 (one) capsule by mouth once daily 3 Active ondansetron (Zofran) 4 MG tablet Take 1 (one) tablet by mouth every 8 hours as needed for nausea and vomiting. 3 Active propranolol (Inderal) 10 MG tablet Take 1 (one) tablet by mouth every 12 hours 3 Active traZODone (Desyrel) 50 MG tablet Take 1 (one) tablet by mouth at bedtime 4 Active insulin lispro (HumaLOG;ADMel og) 100 UNIT/ML pen Inject subcutaneously as directed Sliding scale Active insulin glargine (Lantus/Semgle e) 100 units/mL pen Inject 10 (ten) Units subcutaneously at bedtime Active pancrelipase (Creon) 95357-74804 units capsule Take 2 (two) capsules by mouth 4 times daily with meals Active Active Problems Problem Noted Date Diagnosed Date Type 2 diabetes mellitus without complications 0 07/01/2017 Overview (09/29/2024): IMO 09/29/2024 Alcoholic hepatitis without ascites 05/28/2017 Uncomplicated alcohol [...] pure alcohol) ABSTINENT SINCE , PREVIOUSLY HEAVY Comments No Sex and Gender Information Value Date Recorded Sex Assigned at Not on file 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 Author Medication Management General On track( 024 10:55 AM CDT) Dk Rodriguez, RN Note: [...] HEPATITIS C ANTIBODY Routine 08/11/2023 12:57 PM COSTUME DESIGN TEACHER Alcoholic cirrhosis of liver without ascites Sarcopenia Secondary esophageal varices without bleeding Type 2 diabetes mellitus without complication, without long-term current use of insulin from Last 3 Months or Most Recently Relevant to Health Maintenance Results * (ABNORMAL) COMPREHENSIVE METABOLIC PANEL (04/13/2024 12:07 PM CDT) BUN 26 7 - 26 mg/dL 04/13/2024 1:08 PM [facility] Creatinine 1.09(H) 0.56 - 0.96 mg/dL 04/13/2024 1:08 PM [facility] Sodium 135(L) 136 - 145 mmol/L 04/13/2024 1:08 PM [facility] Potassium 4.5 3.5 - 4.5 mmol/L 04/13/2024 1:08 PM [facility] Chloride 101 98 - 107 mmol/L 04/13/2024 1:08 PM [facility] CO2 27 22 - 29 mmol/L 04/13/2024 1:08 PM [facility] Glucose 171(H) 70 - 115 mg/dL 04/13/2024 1:08 PM [facility] Calcium 9.7 8.4 - 10.2 mg/dL 04/13/2024 1:08 PM [facility] Protein Total 7.4 6.0 - 8.3 g/dL 04/13/2024 1:08 PM [facility] Albumin 4.4 3.4 - 5.0 g/dL 04/13/2024 1:08 PM [facility] Bilirubin Total 0.8 0.2 - 1.2 mg/dL 04/13/2024 1:08 PM [facility] Alkaline Phosphatase 115 40 - 150 U/L 04/13/2024 1:08 PM [facility] ALT 34 5 - 55 U/L 04/13/2024 1:08 PM [facility] AST 25 5 - 34 U/L 04/13/2024 1:08 PM [facility] Anion Gap 7 6 - 16 04/13/2024 1:08 PM [facility] BUN/Creatinine Ratio 24(H) 7 - 23 04/13/2024 1:08 PM [facility] Osmolality Calculated 289 275 - 295 mOsm/kg 04/13/2024 1:08 PM [facility] Albumin/Globulin Ratio 1.5 1.1 - 2.3 04/13/2024 1:08 PM [facility] eGFR by CKD-EPI 62(L) >=90 mL/min/1.7 3 m2 04/13/2024 1:08 PM [facility] Blood BLOOD SPECIMEN / Unknown Lab Venipuncture / Unknown 04/13/2024 12:07 PM CDT 04/13/2024 12:37 PM [facility] Ambrosio Sexton MD LAB - CHEMISTRY ORDERA BLES Final Result [facility] [address] [place] [address], [facility] [phone] * HEPATITIS C ANTIBODY (08/11/2023 12:57 PM COSTUME DESIGN TEACHER) Hepatitis C Antibody Non-react yuniel Non-reac tive 08/11/2023 2:04 PM COSTUME DESIGN TEACHER [facility] Comment:Hepatitis C Antibody screen indicates no serologic evidence of past or current infection with Hepatitis C Virus. Patients with unexplained liver disease who are immunocompromised or suspected of having acute Hepatitis C infection may benefit from Nucleic Acid Test (AGATA) for Hepatitis C Viral RNA to confirm Hepatitis C status. Blood BLOOD SPECIMEN / Unknown Lab Venipuncture / Unknown 08/11/2023 12:57 PM COSTUME DESIGN TEACHER 08/11/2023 1:21 PM COSTUME DESIGN TEACHER Ambrosio Sexton MD LAB - CHEMISTRY ORDERA PEARL Final Result [facility] [address] [place] [address], [place] [phone] from Last 3 Months or Most Recently Relevant to Health Maintenance Insurance [facility] * Guarantor: NAPOLEON MARCANO Account Type Relation to Patient Date of Phone Billing Address Personal/Family [address] [place] [address] [facility] SELF PAY NO INSURANCE Member Subscriber Plan / Payer (Ef fective for All Dates) Name:Krys Napoleon Member ID:Not on file Relation to Subscriber:Not on file Name:KRYSNAPOLEON Subscriber ID:Not on file Address: [address] [address] Payer ID:Not on file Group ID:Not on file Type:Self Pay Address: [place], [place] * Guarantor: NAPOLEON MARCANO Account Type Relation to Patient Date of Phone Billing Address Personal/Family [address] [address] [employer] [facility] SELF PAY NO INSURANCE Member Subscriber Plan / Payer (Ef fective for All Dates) Name:Napoleon Marcano Member ID:Not on file Relation to Subscriber:Not on file Name:KRYSNAPOLEON Subscriber ID:Not on file Address: [address] [address] Payer ID:Not on file Group ID:Not on file Type:Self Pay Address: [place], [place] * Guarantor: NAPOLEON MARCANO Account Type Relation to Patient Date of Phone Billing Address Personal/Family [address] [address] [facility] [facility] SELF PAY NO INSURANCE Member Subscriber Plan / Payer (Ef fective for All Dates) Name:Napoleon Marcano Member ID:Not on file Relation to Subscriber:Not on file Name:NAPOLEON MARCANO Subscriber ID:Not on file Address: [address] [place] [address] Payer ID:Not on file Group ID:Not on file Type:Self Pay Address: [place], [place] Care Teams Fruit Distributor Relationship Specialty Start Date End Date Juan Guerrero MD [address] [place] [address] PCP - General 05/16/17
--- OUTSIDE RECORDS SUMMARY | 2024-11-09 11:53 | XMS_ITS | Clinical Summary ---
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
[2024-11-09 12:16] LABS: Basophils Percent Auto 0.7 % (0.2-1.2); Eosinophils Percent Auto 1.1 % (0-4.4); Hematocrit 36.8 % (37.0-47.0); Hemoglobin 11.8 g/dL (12.0-15.0); Immature Granulocyte Absolute 0.01 K/mm3 (0.00-0.031); Immature Granulocyte Percent A 0.4 % (0-0.5); Immature Platelet Fraction Pct 3.7 % (0.9-11.2); Lymphocytes Absolute Auto 0.77 K/mm3 (0.9-3.2); Lymphocytes Percent Auto 27.6 % (18.3-44.2); Mean Corpuscular HGB Conc 32.1 g/dl (32-36); Mean Corpuscular Hemoglobin 32.7 pg (26-34); Mean Corpuscular Volume 101.9 fl (80-100); Mean Platelet Volume 9.9 fl (7.4-10.4); Monocytes Absolute Auto 0.2 K/mm3 (0.1-0.6); Monocytes Percent Auto 7.5 % (2.6-8.5); Neutrophils Absolute Auto 1.8 K/mm3 (1.3-6.7); Neutrophils Percent Auto 62.7 % (45.5-73.1); Platelet Count Result 52 k/mm3 (150-375); Red Blood Count 3.61 M/mm3 (4.2-5.4); Red Cell Distribution Width 13.2 % (11.5-14.5); White Blood Count 2.8 K/mm3 (4.5-10.0)
[2024-11-09 12:29] LABS: Alanine Aminotransferase 27 U/L (6-35); Albumin Level 4.8 g/dL (3.5-5.1); Alkaline Phosphatase 155 U/L (38-126); Anion Gap 10 mmol/L (4-12); Aspartate Amino Transferase 34 U/L (14-36); Bilirubin,Total 0.8 mg/dL (0.2-1.3); Blood Urea Nitrogen 21 mg/dL (7-17); Calcium 9.3 mg/dL (8.4-10.2); Carbon Dioxide 29 mmol/L (22-30); Chloride 100 mmol/L (98-107); Cholesterol 217 mg/dL (0-200); Estimated Glomerular Filt Rate > 60; Glucose 319 mg/dL (65-110); HDL Direct 59 mg/dL; Potassium 4.8 mmol/L (3.4-5.0); Sodium 139 mmol/L (137-145); Triglycerides 178 mg/dL (<150)
[2024-11-09 12:40] LABS: LDL Cholesterol Direct 102 mg/dL
[2024-11-09 12:47] LABS: Creatinine Urine 33.7 mg/dL
[2024-11-09 12:52] LABS: MALB Creatinine Ratio 39.5 mg/g (0-30); Microalbumin Urine Random 13.3 mg/L (0-16.7)
[2024-11-09 12:53] LABS: Vitamin D 25 Hydroxy 21.6 ng/mL
[2024-11-09 12:59] LABS: Thyroid Stimulating Hormone 0.763 uIU/mL (0.465-4.680)
[2024-11-10 04:44] LABS: GGT 119 U/L (3-70)
== END 2024-11-09 11:41 | disposition home or self-care (01) ==
LOC: ANHLAB 11:42
PROVIDERS: PCP Family Medicine; Visit Provider Family Medicine
DX: I10 Essential (primary) hypertension (principal); E55.9 Vitamin D deficiency, unspecified; K70.31 Alcoholic cirrhosis of liver with ascites; E11.65 Type 2 diabetes mellitus with hyperglycemia; E78.2 Mixed hyperlipidemia; Z13.220 Encounter for screening for lipoid disorders; F41.1 Generalized anxiety disorder
CPT/HCPCS: 36415; 80048; 80061; 80076; 82043; 82306; 82977; 84443; 85025; 85055

== ENCOUNTER 2024-12-23 08:09 | Outpatient (CLI) | payer OTHER, SELFPAY ==
--- NOTE | ~2024-12-23 | US_ITS ---
Limited Abdominal Sonogram: Real-time sonographic imaging of the right upper quadrant was performed. Clinical History: Alcoholic cirrhosis Findings: The liver appears mildly heterogeneous, with nodular contour, but no evidence of mass lesi on or bile duct dilatation. Main portal vein demonstrates normal direction of flow. The gallbladder i s well distended, and demonstrates small layering gallstones. No gallbladder wall thickening. The com mon bile duct measures 5 mm. The visualized pancreas, aorta, and IVC are unremarkable. Impression: Cirrhotic morphology of liver. No hepatic mass seen. Cholelithiasis. Reviewed, dictated and finalized at location . Impression: Cirrhotic morphology of liver. No hepatic mass seen. Cholelithiasis.
[2024-12-23 09:15] LABS: Hematocrit 34.9 % (37.0-47.0); Hemoglobin 11.2 g/dL (12.0-15.0); Mean Corpuscular HGB Conc 32.1 g/dl (32-36); Mean Corpuscular Hemoglobin 32.1 pg (26-34); Platelet Count Result 57 k/mm3 (150-375); Red Blood Count 3.49 M/mm3 (4.2-5.4); Red Cell Distribution Width 13.4 % (11.5-14.5)
[2024-12-23 09:32] LABS: INR 1.1; Prothrombin Time 13.8 Seconds (11.1-14.7)
[2024-12-23 09:37] LABS: Alanine Aminotransferase 27 U/L (6-35); Albumin Level 4.2 g/dL (3.5-5.1); Alkaline Phosphatase 129 U/L (38-126); Anion Gap 7 mmol/L (4-12); Aspartate Amino Transferase 32 U/L (14-36); Bilirubin,Total 0.7 mg/dL (0.2-1.3); Blood Urea Nitrogen 22 mg/dL (7-17); Calcium 9.6 mg/dL (8.4-10.2); Carbon Dioxide 26 mmol/L (22-30); Chloride 103 mmol/L (98-107); Estimated Glomerular Filt Rate > 60; Glucose 227 mg/dL (65-110); Potassium 5.9 mmol/L (3.4-5.0); Sodium 136 mmol/L (137-145); Total Protein 7.3 g/dL (6.3-8.2)
== END 2024-12-23 08:10 | disposition home or self-care (01) ==
LOC: ANHIMG 08:11
PROVIDERS: PCP Family Medicine; Visit Provider Internal Medicine Gastroenterology
DX: K70.31 Alcoholic cirrhosis of liver with ascites (principal); K80.20 Calculus of gallbladder without cholecystitis without obstruction
CPT/HCPCS: 36415; 76705; 80053; 85027; 85055; 85610

== ENCOUNTER 2025-01-17 06:39 | Outpatient (CLI) | payer OTHER, SELFPAY ==
--- NOTE | ~2025-01-17 | CT_ITS ---
EXAMINATION: CT abdomen pelvis w con DATE: 01/17/2025 07:07 INDICATION: Abdominal pain TECHNIQUE: Computed tomography (CT) of the abdomen and pelvis was performed with 100 cc Omnipaque 350 intravenous contrast. The dose-length product was 413.91 mGy-cm. Automated exposure control and iter ative reconstruction technique were employed. COMPARISON: CT dated 07/14/2024. FINDINGS: There is cirrhosis of the liver with splenomegaly and portal venous hypertension characteri zed with collateralization. There are infiltrates surrounding the appendix, although improved compare d with CT dated 07/14/2024. The appendix is not thickened. Gallbladder is contracted. The pancreas, ad renal glands are unremarkable. There is bilateral renal atrophy. Nonobstructing bilateral nephrolithi asis. No definite ureteral stone. Nonobstructive bowel gas pattern. IMPRESSION: 1. Cirrhosis with portal venous hypertension and splenomegaly. 2: Persistent chronic stranding involving the mesentery surrounding the appendix with similar finding s on the left, likely related to underlying cirrhosis. 2: Nonobstructing bilateral nephrolithiasis with renal atrophy and scarring. Reviewed, dictated and finalized at location A. IMPRESSION: 1. Cirrhosis with portal venous hypertension and splenomegaly. 2: Persistent chronic stranding involving the mesentery surrounding the appendi x with similar findings on the left, likely related to underlying cirrhosis. 2: Nonobstructing bilateral nephrolithiasis with renal atrophy and scarring.
--- OUTSIDE RECORDS SUMMARY | 2025-01-17 06:41 | XMS_ITS | Clinical Summary ---
Author Organization [facility] Address [address] [place] [address] Care Team Providers Care Project Manager/Design Manager Name Role Phone Juan Guerrero MD Primary Care Provider [phone] [facility],non-owned Affiliates and Associated Physician Practices is amultiple site organization consisting of ambulatory clinics and hospital sitesin [place], [place], [place] and [place]. This disclosure is being madepursuant to the Care Everywhere program and may not contain all information available regarding this patient. Last updated 18.[employer] [facility] Allergies No known active allergies Medications * [...] Units subcutaneously at bedtime Active pancrelipase (Creon) 16475-02093 units capsule Take 2 (two) capsules by [...] on file Legal Sex Female 5:44 PM SCOW HAND Gender Identity Not on file Sexual Orientation [...] - COLON CA SCREENING 1972 MAMMOGRAM 1972 HIV SCREENING 09/04/1987 DTAP/TDAP/TD VACCINES (1 - Tdap) 09/04/1991 HEPATITIS B VACCINE (1 of 3 - 19+ 3-dose series) 09/04/1991 PNEUMOCOCCAL VACCINE 50+ (1 of 2 - PCV) 09/04/1991 PAP SMEAR 1993 DIABETES-STATIN 2012 ZOSTER VACCINE (1 of 2) 2022 DIABETES RETINOPATHY SCREENING 08/11/2023 DIABETES-FOOT EXAM WITH MONOFILAMENT 08/11/2023 DIABETES-HGB A1C 08/11/2023 COVID-19 VACCINE (3 - 2023- season) 2024 12/06/2020, 11/15/2020 DEPRESSION SCREENING 06/30/2024 DIABETES - URINE PROTEIN SCREENING 06/30/2024 INFLUENZA VACCINE (#1) 2025 DIABETES-SERUM CREATININE 04/13/20252023, 09/29/2023, 08/11/2023, Additional [...] HEPATITIS C ANTIBODY Routine 08/11/2023 12:57 PM SCOW HAND Alcoholic cirrhosis of liver without ascites Sarcopenia Secondary esophageal varices without bleeding Type 2 diabetes mellitus without complication, without long-term current use of insulin from Last 3 Months or Most Recently Relevant to Health Maintenance Results * (ABNORMAL) COMPREHENSIVE METABOLIC PANEL (04/13/2024 12:07 PM CDT) BUN 26 7 - 26 mg/dL 04/13/2024 1:08 PM [facility] Creatinine 1.09(H) 0.56 - 0.96 mg/dL 04/13/2024 1:[address] [facility] Sodium 135(L) 136 - 145 mmol/L 04/13/2024 1:[address] [facility] Potassium 4.5 3.5 - 4.5 mmol/L 04/13/2024 1:[address] [facility] Chloride 101 98 - 107 mmol/L 04/13/2024 1:08 PM [facility] CO2 27 22 - 29 mmol/L 04/13/2024 1:08 PM [facility] Glucose 171(H) 70 - 115 mg/dL 04/13/2024 1:[address] [facility] Calcium 9.7 8.4 - 10.2 mg/dL 04/13/2024 1:08 PM [facility] Protein Total 7.4 6.0 - 8.3 g/dL 04/13/2024 1:08 PM [facility] Albumin 4.4 3.4 - 5.0 g/dL 04/13/2024 1:08 PM [facility] Bilirubin Total 0.8 0.2 - 1.2 mg/dL 04/13/2024 1:[address] [facility] Alkaline Phosphatase 115 40 - 150 U/L 04/13/2024 1:[address] [facility] ALT 34 5 - 55 U/L 04/13/2024 1:[address] [facility] AST 25 5 - 34 U/L 04/13/2024 1:[address] [facility] Anion Gap 7 6 - 16 04/13/2024 1:[address] [facility] BUN/Creatinine Ratio 24(H) 7 - 23 04/13/2024 1:[address] [facility] Osmolality Calculated 289 275 - 295 mOsm/kg 04/13/2024 1:[address] [facility] Albumin/Globulin Ratio 1.5 1.1 - 2.3 04/13/2024 1:[address] [facility] eGFR by CKD-EPI 62(L) >=90 mL/min/1.7 3 m2 04/13/2024 1:[address] [facility] Blood BLOOD SPECIMEN / Unknown Lab Venipuncture / Unknown 04/13/2024 12:07 PM CDT 04/13/2024 12:37 PM [facility] Ambrosio Sexton MD LAB - CHEMISTRY ORDERA BLES Final Result [facility] [address] [place] [address], [facility] [phone] * HEPATITIS C ANTIBODY (08/11/2023 12:57 PM SCOW HAND) Hepatitis C Antibody Non-react yuniel Non-reac tive 08/11/2023 2:04 PM SCOW HAND [facility] Comment:Hepatitis C Antibody screen indicates no serologic evidence of past or current infection with Hepatitis C Virus. Patients with unexplained liver disease who are immunocompromised or suspected of having acute Hepatitis C infection may benefit from Nucleic Acid Test (AGATA) for Hepatitis C Viral RNA to confirm Hepatitis C status. Blood BLOOD SPECIMEN / Unknown Lab Venipuncture / Unknown 08/11/2023 12:57 PM SCOW HAND 08/11/2023 1:21 PM SCOW HAND Ambrosio Sexton MD LAB - CHEMISTRY ORDERA PEARL Final Result [facility] [address] [place] [address], [place] [phone] from Last 3 Months or Most Recently Relevant to Health Maintenance Insurance [facility] * Guarantor: NAPOLEON MARCANO Account Type Relation to Patient Date of Phone Billing Address Personal/Family [address] [place] [address] SELF PAY NO INSURANCE Member Subscriber Plan / Payer (Ef fective for All Dates) Name:Napoleon Marcano Member ID:Not on file Relation to Subscriber:Not on file Name:MARIA GUADALUPENAPOLEON MEZA Subscriber ID:Not on file Address: [address] [place] [address] Payer ID:Not on file Group ID:Not on file Type:Self Pay Address: [facility] * Guarantor: NAPOLEON MARCANO Account Type Relation to Patient Date of Phone Billing Address Personal/Family [address] [address] SELF PAY NO INSURANCE Member Subscriber Plan / Payer (Ef fective for All Dates) Name:Napoleon Marcano Member ID:Not on file Relation to Subscriber:Not on file Name:KRYSNAPOLEON Subscriber ID:Not on file Address: [address] [address] Payer ID:Not on file Group ID:Not on file Type:Self Pay Address: [facility] Member Subscriber Plan / Payer (Ef fective 2024-Present) Name:Napoleon Marcano Relation to Subscriber:Self Name:Napoleon Marcano Payer ID:[id number] (NAIC) Type:PPO Address: [address] * Guarantor: NAPOLEON MARCANO Account Type Relation to Patient Date of Phone Billing Address Personal/Family [address] [place] [address] SELF PAY NO INSURANCE Member Subscriber Plan / Payer (Ef fective for All Dates) Name:Napoleon Marcano Member ID:Not on file Relation to Subscriber:Not on file Name:NAPOLEON MARCANO Subscriber ID:Not on file Address: [address] [place] [address] Payer ID:Not on file Group ID:Not on file Type:Self Pay Address: [facility] Care Teams Project Manager/Design Manager Relationship Specialty Start Date End Date Juan Guerrero MD [address] [place] [address] PCP - General 05/16/17
--- OUTSIDE RECORDS SUMMARY | 2025-01-17 06:41 | XMS_ITS | Clinical Summary ---
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
== END 2025-01-17 06:40 | disposition home or self-care (01) ==
PROVIDERS: PCP Family Medicine; Visit Provider Internal Medicine Gastroenterology
DX: R10.9 Unspecified abdominal pain (principal); K70.30 Alcoholic cirrhosis of liver without ascites; R14.0 Abdominal distension (gaseous)
CPT/HCPCS: 74177; Q9967

== ENCOUNTER 2025-03-08 15:18 | Outpatient (CLI) | payer OTHER, SELFPAY ==
--- NOTE | ~2025-03-08 | XR_ITS ---
EXAMINATION: XR chest 2V, 03/08/2025 15:26 CDT HISTORY: R05.2 - Subacute cough X 5DYS, SOB WHEEZING, HX COPD COMPARISON: No comparisons available. Technique: 2 views obtained. Findings: The lungs are clear, no effusion. No pneumothorax. Heart is normal size. Mediastinal and hilar contours are within normal limits. Bony thorax no acute abnormality. Impression: No acute cardiopulmonary abnormality. Reviewed, dictated and finalized at location A. Impression: No acute cardiopulmonary abnormality.
--- OUTSIDE RECORDS SUMMARY | 2025-03-08 16:36 | XMS_ITS | Clinical Summary ---
Author Organization [facility] Address [address] [place] [address] Care Team Providers Care Automated Manufacturing Instructor Name Role Phone Juan Guerrero MD Primary Care Provider [phone] Source Comments [facility],non-owned Affiliates and Associated Physician Practices is amultiple site organization consisting of ambulatory clinics and hospital sitesin [place], [place], [place] and [place]. This disclosure is being madepursuant to the Care Everywhere program and may not contain all information available regarding this patient. Last updated 18.[employer] [facility] Allergies No known active allergies Medications * [...] Units subcutaneously at bedtime Active pancrelipase (Creon) [id number] units capsule Take 2 (two) capsules by mouth 4 times daily with meals Active Active Problems Problem Noted Date Diagnosed Date Type 2 diabetes mellitus without complications 0 07/01/2017 Overview (09/29/2024): IMO 09/29/2024 Alcoholic hepatitis without ascites 05/28/2017 Uncomplicated alcohol abuse 05/28/2017 Abnormal levels of other serum enzymes 7 Elevated liver enzymes 05/27/2017 Encounters Date Type Department Care Team Description 01/24/2025 Travel from Last 3 Months Family History Medical History Relation Name Comments [...] on file Legal Sex Female 5:44 PM ASSISTANT BUSINESS MANAGER Gender Identity Not on file Sexual Orientation [...] Care Team (Late st Contact Info) Description 07/18/2025 2:00 PM ASSISTANT BUSINESS MANAGER Office Visit [facility] [place] [address] [place] [address] Ambrosio Sexton MD [address] [place] [address] [place] [address] Health Maintenance Due Date Last Done Comments [...] EXAM WITH MONOFILAMENT 08/11/2023 DIABETES-HGB A1C 08/11/2023 DEPRESSION SCREENING 06/30/2024 DIABETES - URINE PROTEIN SCREENING 06/30/2024 COVID-19 VACCINE ( season) 2025 12/06/2020, 11/15/2020 INFLUENZA VACCINE (#1) 2025 DIABETES-SERUM CREATININE 04/13/20252023, [...] On track( 024 10:55 AM CDT) Dk Rodriguez RN Note: Expected end date: Interventions: Take [...] HEPATITIS C ANTIBODY Routine 08/11/2023 12:57 PM ASSISTANT BUSINESS MANAGER Alcoholic cirrhosis of liver without ascites Sarcopenia Secondary esophageal varices without bleeding Type 2 diabetes mellitus without complication, without long-term current use of insulin from Last 3 Months or Most Recently Relevant to Health Maintenance Results * (ABNORMAL) COMPREHENSIVE METABOLIC PANEL (04/13/2024 12:07 PM CDT) BUN 26 7 - 26 mg/dL 04/13/2024 1:08 PM [facility] Creatinine 1.09(H) 0.56 - 0.96 mg/dL 04/13/2024 1:08 PM [facility] Sodium 135(L) 136 - 145 mmol/L 04/13/2024 1:08 PM [facility] Potassium 4.5 3.5 - 4.5 mmol/L 04/13/2024 1:08 PM [facility] Chloride 101 98 - 107 mmol/L 04/13/2024 1:08 PM [facility] CO2 27 22 - 29 mmol/L 04/13/2024 1:08 PM [facility] Glucose 171(H) 70 - 115 mg/dL [...] 04/13/2024 12:07 PM CDT 04/13/2024 12:37 PM [facility] Ambrosio Sexton MD LAB - CHEMISTRY ORDERA BLES Final Result [facility] [address] [place] [address], [facility] [phone] * HEPATITIS C ANTIBODY (08/11/2023 12:57 PM ASSISTANT BUSINESS MANAGER) Hepatitis C Antibody Non-react yuniel Non-reac tive 08/11/2023 2:04 PM ASSISTANT BUSINESS MANAGER [facility] Comment:Hepatitis C Antibody screen indicates no serologic evidence of past or current infection with Hepatitis C Virus. Patients with unexplained liver disease who are immunocompromised or suspected of having acute Hepatitis C infection may benefit from Nucleic Acid Test (AGATA) for Hepatitis C Viral RNA to confirm Hepatitis C status. Blood BLOOD SPECIMEN / Unknown Lab Venipuncture / Unknown 08/11/2023 12:57 PM ASSISTANT BUSINESS MANAGER 08/11/2023 1:21 PM ASSISTANT BUSINESS MANAGER Ambrosio Sexton MD LAB - CHEMISTRY ORDERA BLES Final Result [facility] [address] [place] [address], [facility] [phone] from Last 3 Months or Most Recently Relevant to Health Maintenance Insurance [facility] * Guarantor: NAPOLEON MARCANO Account Type Relation to Patient Date of Phone Billing Address Personal/Family [address] [place] [address] SELF PAY NO INSURANCE Member Subscriber Plan / Payer (Ef fective for All Dates) Name:Napoleon Marcano Member ID:Not on file Relation to Subscriber:Not on file Name:NAPOLEON MARCANO Subscriber ID:Not on file Address: [address] [place] [address] Payer ID:Not on file Group ID:Not on file Type:Self Pay Address: [facility] * Guarantor: NAPOLEON MARCANO Account Type Relation to Patient Date of Phone Billing Address Personal/Family [address] [place] [address] SELF PAY NO INSURANCE Member Subscriber Plan / Payer (Ef fective for All Dates) Name:Napoleon Marcano Member ID:Not on file Relation to Subscriber:Not on file Name:NAPOLEON MARCANO Subscriber ID:Not on file Address: [address] [place] [address] Payer ID:Not on file Group ID:Not on file Type:Self Pay Address: [facility] * Guarantor: NAPOLEON MARCANO Account Type Relation to Patient Date of Phone Billing Address Personal/Family [address] [place] [address] SELF PAY NO INSURANCE Member Subscriber Plan / Payer (Ef fective for All Dates) Name:Napoleon Marcano Member ID:Not on file Relation to Subscriber:Not on file Name:NAPOLEON MARCANO Subscriber ID:Not on file Address: [address] [place] [address] Payer ID:Not on file Group ID:Not on file Type:Self Pay Address: [facility] Care Teams Automated Manufacturing Instructor Relationship Specialty Start Date End Date Juan Guerrero MD [address] [place] [address] PCP - General 05/16/17
--- OUTSIDE RECORDS SUMMARY | 2025-03-08 16:36 | XMS_ITS | Clinical Summary ---
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 Gender Identity Not on file Sexual Orientation Not on file Plan of Treatment Health Maintenance Due Date Last Done Comments Hepatitis C Virus (HCV) Screening 1972 TdaP Immunization 1972 Hepatitis B Immunization (1 of 3 - 19+ 3-dose series) 09/04/1991 Pap Smear 1993 Cervical Cancer Screening (CCS) 2002 HPV/Cotest 2002 Cologuard 2017 Colonoscopy 2017 Colorectal Cancer Screening 2017 Immunochemical Fecal Occult Blood 2017 Pneumococcal Immunization (5 0+ years) (1 of 1 - PCV) 2022 Zoster Immunization (1 of 2) 2022 SARS-COV-2 Immunization ( season) 2024 12/06/2020, 11/15/2020 Influenza Immunization (#1) 2025 Respiratory Syncytial Virus (RSV) Immunization (Adult) (1 - 1-dose 75+ series) 09/04/2047 Human Papillomavirus (HPV) Immunization Aged Out No longer eligible b ased on patient's age to complete this topic Meningococcal Immunization (ACWY) Aged Out No longer eligible b ased on patient's age to complete this topic Rotavirus Immunization Aged Out No lo nger eligible based on patient's age to complete this topic
== END 2025-03-08 15:19 | disposition home or self-care (01) ==
PROVIDERS: PCP Family Medicine; Visit Provider Physician Assistant Medical
DX: R05.2 Subacute cough (principal)
CPT/HCPCS: 71046

== ENCOUNTER 2025-03-10 16:26 | Outpatient (CLI) | payer OTHER, SELFPAY ==
[2025-03-10 17:01] LABS: Hematocrit 33.9 % (37.0-47.0); Hemoglobin 10.9 g/dL (12.0-15.0); Immature Platelet Fraction Pct 2.8 % (0.9-11.2); Mean Corpuscular HGB Conc 32.2 g/dl (32-36); Mean Corpuscular Hemoglobin 33.2 pg (26-34); Mean Corpuscular Volume 103.4 fl (80-100); Platelet Count Result 51 k/mm3 (150-375); Red Blood Count 3.28 M/mm3 (4.2-5.4); White Blood Count 3.3 K/mm3 (4.5-10.0)
[2025-03-10 17:08] LABS: INR 1.0; Partial Thromboplastin Time 29.1 Seconds (22.3-36.8); Prothrombin Time 13.8 Seconds (11.1-14.7)
[2025-03-10 17:09] LABS: Ammonia 23 umol/L (9-30)
[2025-03-10 17:11] LABS: Alanine Aminotransferase 28 U/L (6-35); Albumin Level 4.5 g/dL (3.5-5.1); Alkaline Phosphatase 113 U/L (38-126); Anion Gap 9 mmol/L (4-12); Aspartate Amino Transferase 34 U/L (14-36); Bilirubin,Total 0.7 mg/dL (0.2-1.3); Blood Urea Nitrogen 21 mg/dL (7-17); Calcium 9.4 mg/dL (8.4-10.2); Carbon Dioxide 27 mmol/L (22-30); Chloride 101 mmol/L (98-107); Estimated Glomerular Filt Rate 53; Glucose 260 mg/dL (65-110); Potassium 4.5 mmol/L (3.4-5.0); Sodium 137 mmol/L (137-145); Total Protein 7.9 g/dL (6.3-8.2)
[2025-03-10 17:29] LABS: Band Neutrophils Percent 6 % (0-6); Lymphocytes Absolute Manual 0.92 K/mm3 (1.1-4.5); Lymphocytes Percent Manual 28 % (18-44); Neutrophils Absolute Manual 2.14 K/mm3 (1.3-6.7); Neutrophils Percent Manual 59 % (46-73); Total Cells Counted 100
[2025-03-10 17:30] LABS: Eosinophils Absolute Manual 0.03 K/mm3 (0.02-0.50); Eosinophils Percent Manual 1 % (0-4); Hypochromasia 1+; Monocytes Absolute Manual 0.19 K/mm3 (0.1-0.90); Monocytes Percent Manual 6 % (3-9); Schistocytes None Seen
== END 2025-03-10 16:27 | disposition home or self-care (01) ==
LOC: ANHLAB 16:28
PROVIDERS: PCP Family Medicine; Visit Provider Family Medicine
DX: K70.31 Alcoholic cirrhosis of liver with ascites (principal)
CPT/HCPCS: 36415; 80053; 82140; 85025; 85055; 85610; 85730

== ENCOUNTER 2025-04-26 14:51 | Outpatient (CLI) | payer OTHER, SELFPAY ==
[2025-04-26 15:24] LABS: Hematocrit 36.4 % (37.0-47.0); Hemoglobin 12.3 g/dL (12.0-15.0); Immature Granulocyte Percent A 0.2 % (0-0.5); Immature Platelet Fraction Pct 1.9 % (0.9-11.2); Lymphocytes Absolute Auto 1.19 K/mm3 (0.9-3.2); Mean Corpuscular HGB Conc 33.8 g/dl (32-36); Mean Corpuscular Hemoglobin 33.6 pg (26-34); Mean Corpuscular Volume 99.5 fl (80-100); Nucleated Red Blood Cells Absolute Auto 0.000 K/mm3 (0.0-0.012); Nucleated Red Blood Cells Perc 0.0 % (0.0-0.2); Platelet Count Result 55 k/mm3 (150-375); Red Blood Count 3.66 M/mm3 (4.2-5.4); White Blood Count 5.4 K/mm3 (4.5-10.0)
[2025-04-26 15:28] LABS: Ammonia 19 umol/L (9-30)
[2025-04-26 15:36] LABS: INR 1.1; Prothrombin Time 14.2 Seconds (11.1-14.7)
[2025-04-26 15:37] LABS: Partial Thromboplastin Time 30.8 Seconds (22.3-36.8)
[2025-04-26 15:41] LABS: Schistocytes None Seen
[2025-04-26 15:43] LABS: Alanine Aminotransferase 40 U/L (6-35); Albumin Level 4.8 g/dL (3.5-5.1); Alkaline Phosphatase 77 U/L (38-126); Anion Gap 9 mmol/L (4-12); Aspartate Amino Transferase 36 U/L (14-36); Bilirubin,Total 1.1 mg/dL (0.2-1.3); Blood Urea Nitrogen 18 mg/dL (7-17); Calcium 9.4 mg/dL (8.4-10.2); Carbon Dioxide 28 mmol/L (22-30); Chloride 92 mmol/L (98-107); Estimated Glomerular Filt Rate 47; Glucose 81 mg/dL (65-110); Iron 137 ug/dL (37-170); Potassium 4.5 mmol/L (3.4-5.0); Sodium 129 mmol/L (137-145); Total Protein 8.0 g/dL (6.3-8.2)
[2025-04-26 15:53] LABS: Percent Iron Saturation 39 % (20-50)
[2025-04-26 16:00] LABS: Alanine Aminotransferase 37 U/L (6-35); Albumin Level 4.7 g/dL (3.5-5.1); Alkaline Phosphatase 81 U/L (38-126); Aspartate Amino Transferase 37 U/L (14-36); Bilirubin,Total 1.1 mg/dL (0.2-1.3); Total Protein 7.8 g/dL (6.3-8.2)
[2025-04-26 16:24] LABS: Ferritin 101.00 ng/mL (11.1-264)
[2025-04-26 17:12] LABS: Vitamin B12 782.0 pg/mL (239-931)
--- OUTSIDE RECORDS SUMMARY | 2025-04-26 17:15 | XMS_ITS | Clinical Summary ---
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
--- OUTSIDE RECORDS SUMMARY | 2025-04-26 17:15 | XMS_ITS | Clinical Summary ---
Author Organization [facility] Address [address] [place] [address] Care Team Providers Care [employer] Portal Consultant Name Role Phone Juan Guerrero MD Primary Care Provider [phone] Source Comments [facility],non-owned Affiliates and Associated Physician Practices is amultiple site organization consisting of ambulatory clinics and hospital sitesin [place], [place], [place] and [place]. This disclosure is being madepursuant to the Care Everywhere program and may not contain all information available regarding this patient. 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 Gender Identity Not on file Sexual [...] st Contact Info) Description 07/18/2025 2:00 PM WIND FIELD MANAGER Office Visit [facility] - [place] [address] [facility] [place] [address] Ambrosio Sexton MD [facility] [place] [address] Health Maintenance Due Date Last Done Comments [...] HEPATITIS C ANTIBODY Routine 08/11/2023 12:57 PM WIND FIELD MANAGER Alcoholic cirrhosis of liver without ascites Sarcopenia Secondary esophageal varices without bleeding Type 2 diabetes mellitus without complication, without long-term current use of insulin from Last 3 Months or Most Recently Relevant to Health Maintenance Results * (ABNORMAL) COMPREHENSIVE METABOLIC PANEL (04/13/2024 12:07 PM CDT) BUN 26 7 - 26 mg/dL 04/13/2024 1:08 PM [facility] Creatinine 1.09(H) 0.56 - 0.96 mg/dL 04/13/2024 1:08 PM [facility] Sodium 135(L) 136 - 145 mmol/L 04/13/2024 1:08 PM [facility] Potassium 4.5 3.5 - 4.5 mmol/L 04/13/2024 1:08 PM [facility] Chloride 101 98 - 107 mmol/L 04/13/2024 1:08 PM [facility] CO2 27 22 - 29 [...] 04/13/2024 12:07 PM CDT 04/13/2024 12:[address] [facility] Ambrosio Sexton MD LAB - CHEMISTRY ORDERA BLES Final Result [facility] [address] [place] [address], [facility] [phone] * HEPATITIS C ANTIBODY (08/11/2023 12:57 PM WIND FIELD MANAGER) Hepatitis C Antibody Non-react yuniel Non-reac tive 08/11/2023 2:04 PM WIND FIELD MANAGER [facility] Comment:Hepatitis C Antibody screen indicates [...] Lab Venipuncture / Unknown 08/11/2023 12:57 PM WIND FIELD MANAGER 08/11/2023 1:21 PM WIND FIELD MANAGER Ambrosio Sexton MD LAB - CHEMISTRY ORDERA BLES Final Result [facility] [address] [place] [address], [facility] [phone] from Last 3 Months or Most Recently Relevant to Health Maintenance Insurance [facility] * Guarantor: NAPOLEON MARCANO Account Type Relation to Patient Date of Phone Billing Address Personal/Family [address] [place] [address] SELF PAY NO INSURANCE Member Subscriber Plan / Payer (Ef fective for All Dates) Name:Napoleon Marcano Member ID:Not on file Relation to Subscriber:Not on file Name:NICOLASNAPOLEON Subscriber ID:Not on file Address: [address] [place] [address] Payer ID:Not on file Group ID:Not on file Type:Self Pay Address: [facility] * Guarantor: NAPOLEON MARCANO Account Type Relation to Patient Date of Phone Billing Address Personal/Family [address] [place] [address] SELF PAY NO INSURANCE Member Subscriber Plan / Payer (Ef fective for All Dates) Name:Napoleon Marcano Member ID:Not on file Relation to Subscriber:Not on file Name:NICOLASNAPOLEON Subscriber ID:Not on file Address: [address] [place] [address] Payer ID:Not on file Group ID:Not on file Type:Self Pay Address: [facility] * Guarantor: NAPOLEON MARCANO Account Type Relation to Patient Date of Phone Billing Address Personal/Family [address] [place] [address] SELF PAY NO INSURANCE Member Subscriber Plan / Payer (Ef fective for All Dates) Name:Napoleon Marcano Member ID:Not on file Relation to Subscriber:Not on file Name:NAPOLEON MARCANO Subscriber ID:Not on file Address: [address] [place] [address] Payer ID:Not on file Group ID:Not on file Type:Self Pay Address: [facility] Care Teams [employer] Portal Consultant Relationship Specialty Start Date End Date Juan Guerrero MD [address] [place] [address] PCP - General 05/16/17
[2025-04-27 10:08] LABS: GGT 106 IU/L (0-60)
== END 2025-04-26 14:52 | disposition home or self-care (01) ==
LOC: ANHLAB 14:53
PROVIDERS: Internal Medicine Gastroenterology; PCP Family Medicine; Visit Provider Family Medicine
DX: K70.30 Alcoholic cirrhosis of liver without ascites (principal); D53.9 Nutritional anemia, unspecified; I10 Essential (primary) hypertension; R10.9 Unspecified abdominal pain; E55.9 Vitamin D deficiency, unspecified; F10.10 Alcohol abuse, uncomplicated; D69.6 Thrombocytopenia, unspecified
CPT/HCPCS: 36415; 80053; 80076; 82140; 82306; 82607; 82728; 82746; 82977; 83540; 83550; 85025; 85055; 85610; 85730